=== PATIENT | male | born 1980 | race Caucasian/White ===

== ENCOUNTER → 2016-10-15 | Outpatient (CLI) | payer OTHER ==
--- NOTE | 2016-10-15 16:33 | CT ---
EXAMINATION TYPE: CT sinus w con DATE OF EXAM: 10/15/2016 12:04 PM COMPARISON: NONE HISTORY: Patient having acute sinusitis CT DLP: 650 mGycm CONTRAST: 100 mL of Omnipaque 300 The paranasal sinuses are examined in the axial plane at 2 mm thick sections. Reconstructed images i n the coronal plane were obtained. There is dental amalgam scatter artifact Left maxillary sinus has some mucosal thickening posteriorly. Sinusitis may be present. There is mil d mucosal thickening within the anterior ethmoid air cells, greater on the left than the right. The sphenoid sinuses are clear. The frontal sinuses are clear. The septum is evaluated. There is septal deviation to the left. The ostiomeatal units are patent. 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 IMPRESSIONS: 1. Clinical correlation recommended for mild left maxillary sinusitis. 2. Mucosal thickening within ethmoid air cells anteriorly. 3. Septal deviation.
== END | disposition home or self-care (01) ==
LOC: RADCTMAIN 11:29
PROVIDERS: ATTEND Family Medicine
DX: J34.89 Other specified disorders of nose and nasal sinuses (principal); J34.2 Deviated nasal septum
CPT/HCPCS: 70487; Q9967

== ENCOUNTER → 2018-04-15 | Outpatient (CLI) | payer OTHER ==
[2018-04-15 13:10] LABS: Collection Time,Urine 24 hrs; Total Volume 24 Hour,Urine 1725 mls (800-1800)
[2018-04-15 13:28] LABS: Total Protein 24 Hour,Urine 449 mg/24hr (42.0-225.0)
[2018-04-15 13:29] LABS: Creatinine 24 Hour,Urine 1731.9 mg/24hr (1000.0-2000.0)
== END | disposition home or self-care (01) ==
LOC: LABMAIN 11:43
PROVIDERS: ATTEND Family Medicine
DX: D64.9 Anemia, unspecified (principal); R94.4 Abnormal results of kidney function studies
CPT/HCPCS: 36415; 81050; 82575; 84156

== ENCOUNTER → 2018-05-05 | Outpatient (CLI) | payer OTHER ==
--- NOTE | 2018-05-06 08:35 | US ---
EXAMINATION TYPE: US kidneys/renal and bladder DATE OF EXAM: 05/05/2018 COMPARISON: NONE CLINICAL HISTORY: R94.4Abnormal results of kidney function studies. EXAM MEASUREMENTS: Right Kidney: 11.2 x 4.2 x 5.0 cm Left Kidney: 10.9 x 6.0 x 4.8 cm Right Kidney: No hydronephrosis or masses seen Left Kidney: No hydronephrosis or masses seen Bladder: wnl Bilateral Jets seen: Yes IMPRESSION: 1. Normal renal ultrasound
== END | disposition home or self-care (01) ==
LOC: RADUSWWP 15:48
PROVIDERS: ATTEND Family Medicine
DX: R94.4 Abnormal results of kidney function studies (principal)
CPT/HCPCS: 76770

== ENCOUNTER 2018-07-23 07:19 | Day surgery (SDC) | payer OTHER ==
[2018-07-20 14:53] VITALS: BMI 24.5
[~2018-07-23 07:19] MED LIST: LACTATED RINGERS 1,000 ML IV SCH
[2018-07-23 07:52] VITALS: RESP 16; TEMP 97.6
[2018-07-23] MEDS ORDERED: PROPOFOL 10 MG/ML 20 ML VIAL IV ONE (08:14)
[2018-07-23] MEDS ORDERED: LIDOCAINE 1% INJ 10MG/ML (20 ML MDV) ONE (08:14)
[2018-07-23] MEDS ORDERED: MIDAZOLAM 2 MG/2 ML VIAL ONE (08:14)
[2018-07-23] MEDS ORDERED: fentaNYL (PF) 50 MCG/ML 2 ML AMP ONE (08:14)
--- NOTE | 2018-07-23 08:16 | P.GSHP ---
History of Present Illness H&P Date: 07/23/18 Chief Complaint: Anemia, rectal bleeding This is a 37-year-old male for from [facility]. Patient resents today for EGD and colonoscopy. He's had issues with anemia. Patient states she's had some minor rectal bleeding. Past Medical History Past Medical History: Musculoskeletal Disorder Additional Past Medical History / Comment(s): Anemia History of Any Multi-Drug Resistant Organisms: None Reported Past Surgical History: Back Surgery Additional Past Surgical History / Comment(s): dental work Past Anesthesia/Blood Transfusion Reactions: No Reported Reaction Smoking Status: Current every day smoker - Past Family History Mother Family Medical History: No Reported History Father Family Medical History: Cancer Additional Family Medical History / Comment(s): Lung CA Medications and Allergies Home Medications Medication Instructions Recorded Confirmed Type Baclofen [Lioresal] 10 mg PO TID PRN 07/20/18 07/20/18 History Buprenorphine HCl [Subutex] 8 mg SL DAILY PRN 07/20/18 07/20/18 History Ferrous Sulfate [Feosol] 325 mg PO DAILY 07/20/18 07/20/18 History Finasteride [Proscar] 5 mg PO DAILY 07/20/18 07/20/18 History Indomethacin 25 mg PO TID PRN 07/20/18 07/20/18 History Meloxicam 7.5 mg PO DAILY PRN 07/20/18 07/20/18 History Multivitamins, Thera [Multivitamin 1 tab PO DAILY 07/20/18 07/20/18 History (formulary)] Omeprazole 20 mg PO DAILY 07/20/18 07/20/18 History Pregabalin [Lyrica] 150 mg PO TID 07/20/18 07/20/18 History Tamsulosin [Flomax] 0.4 mg PO DAILY 07/20/18 07/20/18 History Vitamin B Complex 1 each PO DAILY 07/20/18 07/20/18 History Allergies Allergy/AdvReac Type Severity Reaction Status Date / Time No Known Allergies Allergy Verified 07/23/18 07:45 Surgical - Exam Vital Signs Temp Pulse Resp BP Pulse Ox 97.6 F 81 16 135/80 100 07/23/18 07:51 07/23/18 07:51 07/23/18 07:51 07/23/18 07:51 07/23/18 07:51 - General well developed, well nourished, no distress - Eyes PERRL - ENT normal pinna - Neck no masses - Respiratory normal expansion - Cardiovascular Rhythm: regular - Abdomen Abdomen: soft, non tender Assessment and Plan Assessment: Female, GI bleed. We'll perform EGD and colonoscopy.
--- NOTE | 2018-07-23 08:36 | P.OP ---
Date of Procedure: 07/23/18 Preoperative Diagnosis: Anemia GI bleed Postoperative Diagnosis: Duodenitis Antral gastritis Normal colon No evidence of active GI bleed Procedure(s) Performed: She Colonoscopy Anesthesia: MAC Surgeon: Sincere Paulson Pathology: other (Antrum, duodenum) Condition: stable Disposition: PACU Description of Procedure: The patient's placed on the endoscopy table in the lateral position. He received IV sedation. The gastroscope placed oropharynx passed in the esophagus and stomach. Scope was then placed through the pylorus. The first and second portion of the duodenum appeared mildly inflamed a biopsies performed. Scope was then brought back the antrum and this was mildly inflamed and another biopsy performed. The scope was then retroflexed and remainder of the stomach appeared normal. There is no evidence of hiatal hernia. The distal esophagus normal. The proximal esophagus appeared normal. Scope was withdrawn for patient. PROCEDURE: The patient was placed on the endoscopy table in the lateral position. Digital rectal examination was performed which revealed no abnormalities. The prostate was symmetrical without nodules. Flexible colonoscope was then placed in the patient's anus and passed throughout the entire colon. The ileocecal valve was visualized. The cecum, ascending, transverse, descending and sigmoid colon were normal. The rectum was normal as well. There were no masses, polyps or diverticula noted in the entire colon.
[2018-07-23 09:03] VITALS: BP 119/77; PULSE 69
--- NOTE | 2018-07-28 10:52 | CDI ---
Outpatient Documentation Clarification Form Date: 07/28/18 CDS/Sleep Scientist Name: Carla Mancilla Phone: If any questions, call Ronna Jay Review Engineer at [phone] Patient Name: Wang Molina Admit Date: 07/23/18 Discharge Date: 07/23/18 ATTENTION: The [facility] Coding Staff appreciate your assistance in clarifying documentation. Please respond to the clarification below the line at the bottom and electronically sign. The [facility] Coding staff will review the response and follow-up if needed. Please note: Queries are made part of the Legal Health Record. If you have any questions, please contact the Review Engineer. Dear Dr. Paulson, What is the source of the GI bleed? Multiple coding resources, that we are required to follow, state that the physician should identify a source and the gantry rigger may not assume. ICD-9-CM [facility]oding [facility], Second 2006, Page 13: Question: In the 2004 issue of Coding Clinic, it was advised that "the combination codes describing hemorrhage should not be assigned unless the physician identifies a causal relationship." This information superseded previous advice provided in 1991. If, however, a patient presents with GI bleeding where only one possible source is found, can the gantry rigger assume a causal relationship between the GI bleeding and the single finding (ulcer, gastritis, diverticulitis, etc.) or must the physician explicitly state that the GI bleeding is due to the single finding? Answer: The gantry rigger should not assume a causal relationship between gastrointestinal bleeding and a single finding such as a gastric ulcer, gastritis, diverticulitis , etc. The physician must identify the source of the bleeding and link the clinical findings from the colonoscopy or upper endoscopy, since these findings may be unrelated to the bleeding. ICD-9-CM, 2004, Page: 17-18: Question: A patient presents with GI bleeding and undergoes both an EGD with biopsy and colonoscopy. Results reveal multiple findings including gastritis, duodenitis, esophagitis, diverticulosis (of colon), and colon polyp. The physician does not link the GI bleeding with these conditions nor does the physician state that the GI bleeding is not due to these conditions. What is the correct code assignment for these conditions? Answer: Query the physician to determine whether the GI bleeding was caused by any of the endoscopic findings (e.g., gastritis, duodentitis, esophagitis, diverticulosis, and/or polyp). Assign code 578.9, Hemorrhage of gastrointestinal tract, unspecified, as the principal diagnosis, if the physician does not establish a causal relationship between the gastrointestinal bleeding and the multiple findings. Codes 535.50, Unspecified gastritis and gastroduodenitis, without hemorrhage, 535.60, Duodenitis, without hemorrhage, 530.10, Esophagitis, unspecified, 562.10, Diverticulosis of colon (without mention of hemorrhage), and 211.3, Benign neoplasm of other parts of digestive system, Colon, should be assigned as additional diagnoses. The combination codes describing hemorrhage should not be assigned unless the physician identifies a causal relationship. If the documentation provides more specific information and the bleeding is linked to a specific condition, assign the appropriate combination code with bleeding. Assign code 45.16, Esophagogastroduodenoscopy [EGD] with closed biopsy, and code 45.23, Colonoscopy , for the procedures performed. This current information supersedes advice previously published in [facility], Second Quarter 1991, pages 8-9. Thank you for your kind consideration. I'm unable to determine the source of GI bleed. MTDD
== END 2018-07-23 09:20 | disposition home or self-care (01) ==
LOC: ORWHC2ENDO 07:19
PROVIDERS: ATTEND Surgery
DX: K92.2 Gastrointestinal hemorrhage, unspecified (principal); K29.80 Duodenitis without bleeding; K29.50 Unspecified chronic gastritis without bleeding; D50.9 Iron deficiency anemia, unspecified; K21.9 Gastro-esophageal reflux disease without esophagitis; N40.0 Benign prostatic hyperplasia without lower urinary tract symptoms; F17.200 Nicotine dependence, unspecified, uncomplicated; Z79.899 Other long term (current) drug therapy
CPT/HCPCS: 88305; 45378; 43239; J2250; J2001; J3010; J2704

== ENCOUNTER → 2018-08-03 | Outpatient (CLI) | payer OTHER ==
[2018-08-03 14:58] LABS: Basophils # (A) 0.1 k/uL (0-0.2); Basophils % (A) 2 %; Eosinophils # (A) 0.3 k/uL (0-0.7); Eosinophils % (A) 4 %; HCT 39.5 % (39.0-53.0); Lymphocytes # (A) 2.3 k/uL (1.0-4.8); Lymphocytes % (A) 36 %; MCH 31.1 pg (25.0-35.0); MCHC 32.9 g/dL (31.0-37.0); MCV 94.5 fL (80.0-100.0); Mean Platelet Volume 8.4; Monocytes # (A) 0.3 k/uL (0-1.0); Monocytes % (A) 5 %; Neutrophils # (A) 3.3 k/uL (1.3-7.7); Neutrophils % (A) 51 %; Platelet Count 220 k/uL (150-450); RBC 4.18 m/uL (4.30-5.90); WBC 6.5 k/uL (3.8-10.6)
[2018-08-03 15:10] LABS: ALT 22 U/L (21-72); AST 19 U/L (17-59); Albumin 4.2 g/dL (3.5-5.0); Alkaline Phosphatase 67 U/L (38-126); Anion Gap 8 mmol/L; Blood Urea Nitrogen 22 mg/dL (9-20); Calcium 9.9 mg/dL (8.4-10.2); Carbon Dioxide 25 mmol/L (22-30); Chloride 109 mmol/L (98-107); Glucose 113 mg/dL (74-99); Phosphorus 4.2 mg/dL (2.5-4.5); Potassium 4.3 mmol/L (3.5-5.1); Sodium 142 mmol/L (137-145); Total Bilirubin 0.5 mg/dL (0.2-1.3); Total Protein 6.9 g/dL (6.3-8.2)
[2018-08-03 18:20] LABS: Iron Saturation 24.66 (15.00-50.00)
[2018-08-03 18:29] LABS: Vitamin D 25 Hydroxy 31.8 ng/mL (30.0-100.0)
[2018-08-03 18:41] LABS: Parathyroid Hormone Intact 16.2 pg/mL (14.0-72.0)
== END ==
LOC: LABWHC1 13:37
PROVIDERS: ATTEND Family Medicine
DX: D64.9 Anemia, unspecified (principal); R94.4 Abnormal results of kidney function studies; Z79.899 Other long term (current) drug therapy
CPT/HCPCS: 36415; 80053; 82306; 82728; 83540; 83550; 83970; 84100; 85025

== ENCOUNTER → 2018-10-02 | Outpatient (CLI) | payer OTHER ==
--- NOTE | 2018-10-02 14:56 | CT ---
EXAMINATION TYPE: CT urogram wo/w con DATE OF EXAM: 10/02/2018 COMPARISON: None HISTORY: Benign essential microscopic hematuria CT DLP: 1320.3 mGycm CONTRAST: Performed and without and with IV Contrast, patient injected with 100 ml mL of Isovue 370. CT Urography was performed with unenhanced followed by enhanced images of the kidneys, ureters and ur inary bladder. Delayed images were obtained. 3d reconstruction was perfromed at a separate work sta tion. FINDINGS: KIDNEYS/BLADDER: No hydronephrosis. 4.5 mm calculus lower pole right kidney. Additional 2 mm calculu s lower pole right kidney. No calculi left kidney. No distinct renal mass. 4 opacification distal ure ters bilaterally. Urinary bladder grossly unremarkable. LUNG BASES-: No visible nodule. No infiltrate. LIVER/GB: No calcified gallstones. No space occupying hepatic lesion. Biliary tree is of normal ca liber. PANCREAS: No inflammation. No distinct mass. SPLEEN: No splenic enlargement. No lesion seen. ADRENALS: No nodule. No thickening. BOWEL: Normal appendix. Normal bowel caliber. No inflammation. GENITAL ORGANS: No gross abnormality. LYMPH NODES: No greater than 1cm abdominal or pelvic lymph nodes are appreciated. AORTA: No significant abnormality. OSSEOUS STRUCTURES: No significant abnormality is seen. OTHER: No significant additional abnormality is seen. IMPRESSION: 1. Nonobstructing right-sided nephrolithiasis.
== END ==
LOC: RADCTMAIN 13:40
PROVIDERS: ATTEND Urology
DX: N20.0 Calculus of kidney (principal)
CPT/HCPCS: 74178; 74400; Q9967

== ENCOUNTER 2018-10-04 23:59 | Inpatient (IN) | payer OTHER ==
[2018-10-05 01:06] LABS: ALT 22 U/L (21-72); AST 25 U/L (17-59); Albumin 3.1 g/dL (3.5-5.0); Alkaline Phosphatase 38 U/L (38-126); Anion Gap 9 mmol/L; Blood Urea Nitrogen 49 mg/dL (9-20); Calcium 8.5 mg/dL (8.4-10.2); Carbon Dioxide 18 mmol/L (22-30); Chloride 112 mmol/L (98-107); Glucose 243 mg/dL (74-99); Potassium 4.2 mmol/L (3.5-5.1); Sodium 139 mmol/L (137-145); Total Bilirubin 0.2 mg/dL (0.2-1.3); Total Protein 5.2 g/dL (6.3-8.2)
[2018-10-05 01:08] LABS: Basophils # (A) 0.1 k/uL (0-0.2); Basophils % (A) 1 %; Eosinophils # (A) 0.1 k/uL (0-0.7); Eosinophils % (A) 0 %; HCT 22.2 % (39.0-53.0); Lymphocytes # (A) 1.8 k/uL (1.0-4.8); Lymphocytes % (A) 16 %; MCH 32.2 pg (25.0-35.0); MCHC 33.3 g/dL (31.0-37.0); MCV 96.8 fL (80.0-100.0); Mean Platelet Volume 9.6; Monocytes # (A) 0.4 k/uL (0-1.0); Monocytes % (A) 4 %; Neutrophils # (A) 8.7 k/uL (1.3-7.7); Neutrophils % (A) 78 %; Platelet Count 239 k/uL (150-450); WBC 11.2 k/uL (3.8-10.6)
[2018-10-05 01:17] LABS: Creatine Kinase 38 U/L (55-170)
[2018-10-05 01:18] LABS: HGB 7.4 gm/dL (13.0-17.5)
[2018-10-05 01:30] LABS: Creatine Kinase MB 0.5 ng/mL (0.0-2.4); Troponin I <0.012 ng/mL (0.000-0.034)
[2018-10-05] MEDS ORDERED: PANTOPRAZOLE 40 MG/10 ML VIAL IVP STA (01:35)
[2018-10-05] MEDS ORDERED: ACETAMINOPHEN SUPPOSITORY 650 MG SUPP RECTAL PRN (01:44)
[2018-10-05] MEDS ORDERED: ACETAMINOPHEN TAB 325 MG TAB PO PRN (01:44)
[2018-10-05] MEDS ORDERED: NALOXONE 0.4 MG/ML 1 ML VIAL IV PRN (01:44)
[2018-10-05] MEDS ORDERED: SODIUM CHLORIDE 0.9% 1,000 ML IV STA (01:47)
[2018-10-05] MEDS ORDERED: BACLOFEN 10 MG TAB PO PRN (01:51)
--- NOTE | 2018-10-05 02:01 | ED ---
GI Bleed HPI - General Chief complaint: GI Bleed Stated complaint: Vomiting Blood Time Seen by Provider: 10/05/18 00:08 Source: patient, EMS Mode of arrival: EMS Limitations: no limitations - History of Present Illness Initial comments: This patient is a 37-year-old man who presents to be evaluated for GI bleeding. The patient states that in early afternoon he had an episode of vomiting with some bright red blood. Subsequent to that the vomiting is stop but he has had 5 -6 bowel movements with dark red blood. He is not having abdominal pain. He is having lightheadedness when he stands, feeling like he will pass out. At rest he is not having chest pain or palpitations, diaphoresis, dizziness, or syncope. The patient did have episode of GI bleeding in July, and had upper endoscopy with Dr. Paulson showed duodenitis and anterior gastritis. MD complaint: gross hematemesis, melena -: hour(s) Radiation: none Quality: painless Consistency: constant Improves with: none Worsens with: none Context: history of GI bleed Associated Symptoms: denies other symptoms Treatments Prior to Arrival: none - Related Data Home Medications Medication Instructions Recorded Confirmed Buprenorphine HCl [Subutex] 8 mg SL DAILY PRN 07/20/18 10/05/18 Ferrous Sulfate [Feosol] 325 mg PO DAILY 07/20/18 10/05/18 Finasteride [Proscar] 5 mg PO DAILY 07/20/18 10/05/18 Indomethacin 25 mg PO TID PRN 07/20/18 10/05/18 Meloxicam 7.5 mg PO DAILY PRN 07/20/18 10/05/18 Multivitamins, Thera [Multivitamin 1 tab PO DAILY 07/20/18 10/05/18 (formulary)] Tamsulosin [Flomax] 0.4 mg PO DAILY 07/20/18 10/05/18 Vitamin B Complex 1 each PO DAILY 07/20/18 10/05/18 Albuterol Inhaler [Ventolin Hfa 2 puff INHALATION RT-Q4H 10/05/18 10/05/18 Inhaler] Baclofen [Lioresal] 20 mg PO TID 10/05/18 10/05/18 Cetirizine HCl [Zyrtec] 10 mg PO DAILY 10/05/18 10/05/18 Lisinopril-Hctz 20-25 mg 1 tab PO DAILY 10/05/18 10/05/18 [Zestoretic 20-25] Pregabalin [Lyrica] 200 mg PO TID 10/05/18 10/05/18 buPROPion XL [Wellbutrin XL] 150 mg PO DAILY 10/05/18 10/05/18 Previous Rx's Medication Instructions Recorded Omeprazole 40 mg PO DAILY #60 capsule. 07/23/18 Allergies Allergy/AdvReac Type Severity Reaction Status Date / Time No Known Allergies Allergy Verified 10/05/18 07:59 Review of Systems ROS Statement: Those systems with pertinent positive or pertinent negative responses have been documented in the HPI. ROS Other: All systems not noted in ROS Statement are negative. Constitutional: Reports: chills. Denies: fever, weakness ENT: Denies: throat pain Respiratory: Denies: cough, dyspnea Cardiovascular: Denies: chest pain, palpitations, orthopnea, edema, syncope Gastrointestinal: Reports: nausea, vomiting, hematemesis, melena. Denies: abdominal pain, diarrhea, constipation Genitourinary: Denies: dysuria, hematuria Musculoskeletal: Reports: back pain (Chronic) Skin: Denies: rash Neurological: Denies: headache, weakness, numbness Hematological/Lymphatic: Denies: easy bleeding Past Medical History Past Medical History: Musculoskeletal Disorder Additional Past Medical History / Comment(s): Anemia History of Any Multi-Drug Resistant Organisms: None Reported Past Surgical History: Back Surgery Additional Past Surgical History / Comment(s): dental work Past Anesthesia/Blood Transfusion Reactions: No Reported Reaction Past Psychological History: No Psychological Hx Reported Smoking Status: Current every day smoker Past Alcohol Use History: Rare Past Drug Use History: None Reported - Past Family History Mother Family Medical History: No Reported History Father Family Medical History: Cancer Additional Family Medical History / Comment(s): Lung CA General Exam Limitations: no limitations General appearance: alert, in no apparent distress Head exam: Present: atraumatic, normocephalic Eye exam: Present: PERRL, EOMI, other (Pallor). Absent: scleral icterus, conjunctival injection ENT exam: Present: normal oropharynx, mucous membranes moist, other (Pallor of the mucosal membranes) Neck exam: Present: normal inspection Respiratory exam: Present: normal lung sounds bilaterally. Absent: respiratory distress, wheezes, rales, rhonchi, stridor Cardiovascular Exam: Present: normal rhythm, tachycardia, normal heart sounds. Absent: systolic murmur, diastolic murmur, rubs, gallop GI/Abdominal exam: Present: soft, normal bowel sounds. Absent: distended, tenderness, guarding, rebound, rigid, mass, pulsatile mass, hernia Extremities exam: Present: normal inspection, normal capillary refill. Absent: pedal edema, calf tenderness Back exam: Present: normal inspection. Absent: CVA tenderness (R), CVA tenderness (L) Neurological exam: Present: alert Skin exam: Present: warm, dry, intact, pallor. Absent: rash Course Vital Signs 10/05/18 10/05/18 10/05/18 00:01 00:30 01:00 Temperature 97.6 F Pulse Rate 114 H 106 H 97 Respiratory 18 17 21 Rate Blood Pressure 91/61 92/55 100/64 O2 Sat by Pulse 93 L 100 100 Oximetry 10/05/18 10/05/18 10/05/18 01:30 02:00 02:30 Temperature Pulse Rate 90 94 87 Respiratory 16 16 17 Rate Blood Pressure 106/71 106/66 105/70 O2 Sat by Pulse 100 100 100 Oximetry 10/05/18 10/05/18 10/05/18 03:00 03:30 03:59 Temperature 97.8 F Pulse Rate 89 92 92 Respiratory 18 19 18 Rate Blood Pressure 111/71 88/65 101/67 O2 Sat by Pulse 100 100 Oximetry 10/05/18 10/05/18 10/05/18 04:00 04:13 04:30 Temperature 98.0 F Pulse Rate 98 92 90 Respiratory 19 18 20 Rate Blood Pressure 103/68 106/75 111/72 O2 Sat by Pulse 100 100 Oximetry 10/05/18 10/05/18 10/05/18 04:43 05:00 05:28 Temperature 98.3 F 98.5 F Pulse Rate 96 88 86 Respiratory 19 17 19 Rate Blood Pressure 109/69 109/69 116/93 O2 Sat by Pulse 100 100 100 Oximetry 10/05/18 10/05/18 10/05/18 05:30 06:00 06:12 Temperature 99.1 F Pulse Rate 86 85 86 Respiratory 18 19 17 Rate Blood Pressure 116/93 111/68 O2 Sat by Pulse 100 98 Oximetry 10/05/18 10/05/18 06:14 08:00 Temperature 98.4 F Pulse Rate 87 Respiratory 18 10 L Rate Blood Pressure 108/66 O2 Sat by Pulse 98 Oximetry Medical Decision Making - Medical Decision Making Patient is a 37-year-old man presenting with acute gastrointestinal bleeding. The patient is admitted here and started with one unit packed red cells. I discussed his case with admitting physician, with Dr. Mi, and with Dr. Thompson , and there treatment recommendations are incorporated. Patient hemodynamically stable at admission - Lab Data Result diagrams: 10/05/18 06:50 10/05/18 00:10 Lab Results 10/05/18 10/05/18 10/05/18 Range/Units 00:10 00:10 00:10 WBC 11.2 H (3.8-10.6) k/uL RBC 2.30 L (4.30-5.90) m/uL Hgb 7.4 L D (13.0-17.5) gm/dL Hct 22.2 L (39.0-53.0) % MCV 96.8 (80.0-100.0) fL MCH 32.2 (25.0-35.0) pg MCHC 33.3 (31.0-37.0) g/dL RDW 14.0 (11.5-15.5) % Plt Count 239 (150-450) k/uL Neutrophils % 78 % Lymphocytes % 16 % Monocytes % 4 % Eosinophils % 0 % Basophils % 1 % Neutrophils # 8.7 H (1.3-7.7) k/uL Lymphocytes # 1.8 (1.0-4.8) k/uL Monocytes # 0.4 (0-1.0) k/uL Eosinophils # 0.1 (0-0.7) k/uL Basophils # 0.1 (0-0.2) k/uL APTT (22.0-30.0) sec Sodium 139 (137-145) mmol/L Potassium 4.2 (3.5-5.1) mmol/L Chloride 112 H (98-107) mmol/L Carbon Dioxide 18 L (22-30) mmol/L Anion Gap 9 mmol/L BUN 49 H (9-20) mg/dL Creatinine 1.18 (0.66-1.25) mg/dL Est GFR (CKD-EPI)AfAm >90 (>60 ml/min/1.73 sqM) Est GFR (CKD-EPI)NonAf 78 (>60 ml/min/1.73 sqM) Glucose 243 H (74-99) mg/dL Calcium 8.5 (8.4-10.2) mg/dL Total Bilirubin 0.2 (0.2-1.3) mg/dL AST 25 (17-59) U/L ALT 22 (21-72) U/L Alkaline Phosphatase 38 (38-126) U/L Total Creatine Kinase 38 L (55-170) U/L CK-MB (CK-2) 0.5 (0.0-2.4) ng/mL CK-MB (CK-2) Rel Index 1.3 Troponin I <0.012 (0.000-0.034) ng/mL Total Protein 5.2 L (6.3-8.2) g/dL Albumin 3.1 L (3.5-5.0) g/dL Blood Type Blood Type Recheck Antibody Screen Crossmatch Spec Expiration Date 10/05/18 10/05/18 Range/Units 00:10 00:10 WBC (3.8-10.6) k/uL RBC (4.30-5.90) m/uL Hgb (13.0-17.5) gm/dL Hct (39.0-53.0) % MCV (80.0-100.0) fL MCH (25.0-35.0) pg MCHC (31.0-37.0) g/dL RDW (11.5-15.5) % Plt Count (150-450) k/uL Neutrophils % % Lymphocytes % % Monocytes % % Eosinophils % % Basophils % % Neutrophils # (1.3-7.7) k/uL Lymphocytes # (1.0-4.8) k/uL Monocytes # (0-1.0) k/uL Eosinophils # (0-0.7) k/uL Basophils # (0-0.2) k/uL APTT 20.0 L (22.0-30.0) sec Sodium (137-145) mmol/L Potassium (3.5-5.1) mmol/L Chloride (98-107) mmol/L Carbon Dioxide (22-30) mmol/L Anion Gap mmol/L BUN (9-20) mg/dL Creatinine (0.66-1.25) mg/dL Est GFR (CKD-EPI)AfAm (>60 ml/min/1.73 sqM) Est GFR (CKD-EPI)NonAf (>60 ml/min/1.73 sqM) Glucose (74-99) mg/dL Calcium (8.4-10.2) mg/dL Total Bilirubin (0.2-1.3) mg/dL AST (17-59) U/L ALT (21-72) U/L Alkaline Phosphatase (38-126) U/L Total Creatine Kinase (55-170) U/L CK-MB (CK-2) (0.0-2.4) ng/mL CK-MB (CK-2) Rel Index Troponin I (0.000-0.034) ng/mL Total Protein (6.3-8.2) g/dL Albumin (3.5-5.0) g/dL Blood Type A Negative Blood Type Recheck CABO Indicated Antibody Screen NEGATIVE Crossmatch See Detail Spec Expiration Date 10/08/20182309 - EKG Data -: EKG Interpreted by Me EKG shows normal: sinus rhythm, axis (Normal), intervals (Normal), QRS complexes (Normal), ST-T waves (Normal) Rate: tachycardia (Rate approximately 120 bpm) Critical Care Time Critical Care Time: Yes (40 minutes) Disposition Clinical Impression: Melena, Gastrointestinal hemorrhage due to nonsteroidal antiinflammatory drug Disposition: ADMITTED IP TO THIS [facility] Condition: Fair Is patient prescribed a controlled substance at d/c from ED?: No
[2018-10-05] MEDS: SODIUM CHLORIDE 0.9% 1,000 ML IV SCH ×3 (02:38→21:52)
[2018-10-05 07:08] LABS: Basophils % (A) 1 %; Eosinophils % (A) 1 %; HCT 20.3 % (39.0-53.0); Lymphocytes # (A) 1.8 k/uL (1.0-4.8); Lymphocytes % (A) 24 %; MCH 31.6 pg (25.0-35.0); MCHC 33.5 g/dL (31.0-37.0); MCV 94.2 fL (80.0-100.0); Mean Platelet Volume 8.7; Monocytes # (A) 0.3 k/uL (0-1.0); Monocytes % (A) 4 %; Neutrophils % (A) 69 %; Platelet Count 179 k/uL (150-450); RBC 2.16 m/uL (4.30-5.90); RDW 14.7 % (11.5-15.5); WBC 7.2 k/uL (3.8-10.6)
[2018-10-05 07:15] LABS: HGB 6.8 gm/dL (13.0-17.5)
[2018-10-05 08:24] LABS: Glucose,Whole Blood 130 mg/dL (75-99)
[2018-10-05] MEDS: TAMSULOSIN 0.4 MG CAP.ER.24H PO SCH (08:37)
[2018-10-05] MEDS: FINASTERIDE 5 MG TAB PO SCH (08:37)
[2018-10-05] MEDS: FERROUS SULFATE 325 MG TAB PO SCH (08:38)
[2018-10-05] MEDS: PREGABALIN 75 MG CAP PO SCH ×3 (08:40→21:50)
[2018-10-05] MEDS ORDERED: PANTOPRAZOLE 40 MG/10 ML VIAL IV SCH (09:00)
--- NOTE | 2018-10-05 10:00 | P.HPIM ---
<Flori Vickers A - Last Filed: 10/05/18 10:00> History of Present Illness H&P Date: 10/05/18 Chief Complaint: bloody stools 37-year-old male with a past medical history significant for chronic back pain, who presented to the emergency room with a chief complaint of dark blood per rectum. Patient states he had 5-6 episodes at home of dark red blood stools in addition to an episode of bright red vomiting. The patient has been taking indomethacin, Mobic, and Motrin due to his chronic back pain. He states he saw Dr. Mills last week and was taken off of his Mobic and indomethacin. He reports he is still been taking Motrin. The patient underwent EGD and colonoscopy in July of this year by Dr. Paulson due to anemiawhich revealed duodenitis, antral gastritis, normal colon, and no evidence of an active GI bleed. The patient states at that time he only had blood when he wiped and thought it may be due to hemorrhoids. Laboratory data upon admission revealed white count 11.2. Hemoglobin 7.4. Repeat hemoglobin today is 6.8. Platelet count 239. Sodium 139. Potassium 4.2. BUN 49. Creatinine 1.18. Glucose 243. The patient has received 1 unit of RBCs and a second unit is transfusing. The patient was admitted to the hospital under the care of Dr. Canales. Consultations were placed to pulmonary for ICU management and general surgery. REVIEW OF SYSTEMS: Those systems with pertinent positive or pertinent negative responses have been documented in the HPI PHYSICAL EXAM: GENERAL: This is a 37-year-old male in no apparent distress at the time of examination. Pleasant and cooperative. HEENT: Head is atraumatic, normocephalic. Pupils are equal, round, and reactive to light. Sclerae anicteric. Conjunctivae are clear. Mucus membranes of the mouth are moist. Neck is supple. RESPIRATORY: Clear to auscultation. No wheezes, rales, or rhonchi. No use of accessory muscles. Patient maintaining oxygen saturation greater than 92%. No chest wall tenderness is noted on palpation or with deep breathing. CARDIOVASCULAR: Regular rate and rhythm. S1 and S2 noted. No systolic or diastolic murmur auscultated. No JVD noted. No S3 or S4 noted. GASTROINTESTINAL: No distention noted. Abdomen soft and round. Normal active bowel sounds auscultated x 4 quadrants. No pain or tenderness noted upon palpation. INTEGUMENTARY: Pallor. No cyanosis. No jaundice. No rashes noted. No cellulitis noted. EXTREMITIES: 2+ peripheral pulses. No evidence of peripheral edema. No calf tenderness noted. NEUROLOGIC: Cranial nerves II-XII intact. PSYCHIATRIC: Awake, alert, and oriented X 3. Appropriate affect. Intact judgement and insight. ASSESSMENT: Hematemesis and melena due to GI bleeding secondary to NSAIDS History of EGD and colonoscopy, July 2018, revealing duodenitis and antral gastritis Chronic back pain, with history of back surgery History of prescription pain pill abuse, patient reports taking more than prescribed Nicotine dependence PLAN: Continue ICU management per Dr. Hiwot Richards surgery on consult. Appreciate recommendations and input continue IV fluids Protonix IV twice a day clear liquid diet started per surgery Patient currently receiving blood transfusion. Monitor hemoglobin Home meds as appropriate Monitor labs GI prophylaxis: Protonix 40 mg IV twice a day DVT prophylaxis: on hold due to GI bleeding Monitor vital signs and address as appropriate Discharge planning: Patient to return home when stable Further recommendations pending patient's course Nurse practitioner note has been reviewed by physician. Signing provider agrees with the documented findings, assessment, and plan of care. Past Medical History Past Medical History: Musculoskeletal Disorder Additional Past Medical History / Comment(s): Anemia History of Any Multi-Drug Resistant Organisms: None Reported Past Surgical History: Back Surgery Additional Past Surgical History / Comment(s): dental work Past Anesthesia/Blood Transfusion Reactions: No Reported Reaction Past Psychological History: No Psychological Hx Reported Smoking Status: Current every day smoker Past Alcohol Use History: Rare Past Drug Use History: None Reported - Past Family History Mother Family Medical History: No Reported History Additional Family Medical History / Comment(s): Mother is healthy Father Family Medical History: Cancer Additional Family Medical History / Comment(s): Lung CA Medications and Allergies Home Medications Medication Instructions Recorded Confirmed Type Buprenorphine HCl [Subutex] 8 mg SL DAILY PRN 07/20/18 10/05/18 History Ferrous Sulfate [Feosol] 325 mg PO DAILY 07/20/18 10/05/18 History Finasteride [Proscar] 5 mg PO DAILY 07/20/18 10/05/18 History Indomethacin 25 mg PO TID PRN 07/20/18 10/05/18 History Meloxicam 7.5 mg PO DAILY PRN 07/20/18 10/05/18 History Multivitamins, Thera [Multivitamin 1 tab PO DAILY 07/20/18 10/05/18 History (formulary)] Tamsulosin [Flomax] 0.4 mg PO DAILY 07/20/18 10/05/18 History Vitamin B Complex 1 each PO DAILY 07/20/18 10/05/18 History Omeprazole 40 mg PO DAILY #60 capsule.dr 07/23/18 10/05/18 Rx Albuterol Inhaler [Ventolin Hfa 2 puff INHALATION RT-Q4H 10/05/18 10/05/18 History Inhaler] Baclofen [Lioresal] 20 mg PO TID 10/05/18 10/05/18 History Cetirizine HCl [Zyrtec] 10 mg PO DAILY 10/05/18 10/05/18 History Lisinopril-Hctz 20-25 mg 1 tab PO DAILY 10/05/18 10/05/18 History [Zestoretic 20-25] Pregabalin [Lyrica] 200 mg PO TID 10/05/18 10/05/18 History buPROPion XL [Wellbutrin XL] 150 mg PO DAILY 10/05/18 10/05/18 History Allergies Allergy/AdvReac Type Severity Reaction Status Date / Time No Known Allergies Allergy Verified 10/05/18 07:59 Physical Exam Vitals: Vital Signs Temp Pulse Resp BP Pulse Ox 10/05/18 09:30 98.1 F 94 20 115/72 10/05/18 09:03 98.1 F 78 17 111/68 10/05/18 08:53 99.1 F 86 17 111/68 98 10/05/18 08:00 98.4 F 87 10 L 108/66 98 10/05/18 06:14 18 10/05/18 06:12 99.1 F 86 17 111/68 98 10/05/18 06:00 85 19 10/05/18 05:30 86 18 116/93 100 10/05/18 05:28 98.5 F 86 19 116/93 100 10/05/18 05:00 88 17 109/69 100 10/05/18 04:43 98.3 F 96 19 109/69 100 12/24/18 04:30 90 20 111/72 100 10/05/18 04:13 98.0 F 92 18 106/75 10/05/18 04:00 98 19 103/68 100 10/05/18 03:59 97.8 F 92 18 101/67 10/05/18 03:30 92 19 88/65 100 10/05/18 03:00 89 18 111/71 100 10/05/18 02:30 87 17 105/70 100 10/05/18 02:00 94 16 106/66 100 10/05/18 01:30 90 16 106/71 100 10/05/18 01:00 97 21 100/64 100 10/05/18 00:30 106 H 17 92/55 100 10/05/18 00:01 97.6 F 114 H 18 91/61 93 L Intake and Output 10/04/18 10/05/18 10/05/18 22:59 06:59 14:59 Intake Total 310 200 Balance 310 200 Intake: Intake, IV Titration 200 Amount Sodium Chloride 0.9% 1, 200 000 ml @ 100 mls/hr IV . Q10H [facility] Rx#:[id number] Blood Product 310 0 Rc As-3 Unit 0 [id number] Rc Pheresis As-3 Unit 310 [id number] Other: Weight 83.915 kg Results CBC & Chem 7: 10/05/18 06:50 10/05/18 00:10 Labs: Abnormal Lab Results - Last 24 Hours (Table) 10/05/18 10/05/18 10/05/18 Range/Units 00:10 00:10 00:10 WBC 11.2 H (3.8-10.6) k/uL RBC 2.30 L (4.30-5.90) m/uL Hgb 7.4 L D (13.0-17.5) gm/dL Hct 22.2 L (39.0-53.0) % Neutrophils # 8.7 H (1.3-7.7) k/uL APTT (22.0-30.0) sec Chloride 112 H (98-107) mmol/L Carbon Dioxide 18 L (22-30) mmol/L BUN 49 H (9-20) mg/dL Glucose 243 H (74-99) mg/dL POC Glucose (mg/dL) (75-99) mg/dL Total Creatine Kinase 38 L (55-170) U/L Total Protein 5.2 L (6.3-8.2) g/dL Albumin 3.1 L (3.5-5.0) g/dL Crossmatch 10/05/18 10/05/18 10/05/18 Range/Units 00:10 00:10 06:50 WBC (3.8-10.6) k/uL RBC 2.16 L (4.30-5.90) m/uL Hgb 6.8 L* (13.0-17.5) gm/dL Hct 20.3 L (39.0-53.0) % Neutrophils # (1.3-7.7) k/uL APTT 20.0 L (22.0-30.0) sec Chloride (98-107) mmol/L Carbon Dioxide (22-30) mmol/L BUN (9-20) mg/dL Glucose (74-99) mg/dL POC Glucose (mg/dL) (75-99) mg/dL Total Creatine Kinase (55-170) U/L Total Protein (6.3-8.2) g/dL Albumin (3.5-5.0) g/dL Crossmatch See Detail 10/05/18 Range/Units 08:22 WBC (3.8-10.6) k/uL RBC (4.30-5.90) m/uL Hgb (13.0-17.5) gm/dL Hct (39.0-53.0) % Neutrophils # (1.3-7.7) k/uL APTT (22.0-30.0) sec Chloride (98-107) mmol/L Carbon Dioxide (22-30) mmol/L BUN (9-20) mg/dL Glucose (74-99) mg/dL POC Glucose (mg/dL) 130 H (75-99) mg/dL Total Creatine Kinase (55-170) U/L Total Protein (6.3-8.2) g/dL Albumin (3.5-5.0) g/dL Crossmatch Thrombosis Risk Factor Assmnt - Choose All That Apply Any of the Below Risk Factors Present?: No Other Risk Factors: No Other congenital or acquired thrombophilia - If yes, enter type in comment: No Thrombosis Risk Factor Assessment Level: Very Low Risk <Valerio Canales Jr - Last Filed: 10/06/18 11:18> Physical Exam Osteopathic Statement: *. No significant issues noted on an osteopathic structural exam other than those noted in the History and Physical/Consult. Vitals: Vital Signs Temp Pulse Resp BP Pulse Ox 10/06/18 11:00 85 18 103/66 98 10/06/18 10:00 89 17 118/70 97 10/06/18 09:00 80 16 95/56 96 10/06/18 08:30 98.3 F 84 18 109/65 99 10/06/18 08:04 90 10/06/18 08:00 98.2 F 86 18 116/67 100 10/06/18 07:55 84 10/06/18 07:30 98.2 F 107 H 18 113/72 100 10/06/18 07:00 98.5 F 79 9 L 99/60 100 10/06/18 06:50 98.1 F 80 16 99/60 10/06/18 06:06 98.1 F 12 98 10/06/18 06:00 69 12 101/58 96 10/06/18 05:00 77 16 101/60 96 10/06/18 04:00 98.2 F 78 13 92/57 95 10/06/18 03:00 80 12 107/58 96 10/06/18 02:00 73 18 104/60 96 10/06/18 01:00 79 13 99/63 98 10/06/18 00:00 98.4 F 87 12 111/62 99 10/05/18 23:00 84 15 117/74 97 10/05/18 22:00 109 H 13 117/74 99 10/05/18 21:00 87 8 L 88/67 100 10/05/18 20:00 98.4 F 90 17 102/63 99 10/05/18 19:12 84 10/05/18 19:00 85 16 96/61 98 10/05/18 18:59 84 10/05/18 18:26 98.3 F 78 16 96/61 97 10/05/18 18:00 103 H 17 105/64 100 10/05/18 17:00 92 14 106/67 96 10/05/18 16:31 98.3 F 90 16 106/67 10/05/18 16:01 98.0 F 92 20 107/61 10/05/18 16:00 98.0 F 93 18 112/63 95 10/05/18 15:59 17 10/05/18 15:51 98.0 F 93 17 112/63 10/05/18 15:21 96 10/05/18 15:09 90 10/05/18 15:00 89 16 102/69 100 10/05/18 14:00 90 13 116/72 98 10/05/18 13:00 90 17 125/73 97 10/05/18 12:28 98.7 F 98 20 125/73 10/05/18 12:03 88 10/05/18 12:00 82 17 114/65 99 10/05/18 11:30 98.3 F 90 20 95 Intake and Output 10/05/18 10/06/18 10/06/18 22:59 06:59 14:59 Intake Total 2070 1690 610 Output Total 1750 2000 700 Balance 320 -310 -90 Intake: IV 300 Sodium Chloride 0.9% 1, 300 000 ml @ 100 mls/hr IV . Q10H [facility] Rx#:[id number] Intake, IV Titration 800 900 Amount Sodium Chloride 0.9% 1, 800 900 000 ml @ 100 mls/hr IV . Q10H [facility] Rx#:[id number] Oral 960 480 Blood Product 310 310 310 Rc As-1 Unit 0 310 [id number] Rc Pheresis As-3 Unit 310 [id number] Output: Urine 1750 2000 700 Other: Voiding Method Bedside Commode Urinal Weight 83.915 kg 85.6 kg 85.6 kg Results CBC & Chem 7: 10/06/18 10:06 10/05/18 00:10 Labs: Abnormal Lab Results - Last 24 Hours (Table) 10/05/18 10/05/18 10/05/18 Range/Units 00:10 13:30 20:02 RBC 2.18 L 2.56 L (4.30-5.90) m/uL Hgb 7.1 L 8.6 L D (13.0-17.5) gm/dL Hct 21.0 L 24.1 L (39.0-53.0) % Plt Count 146 L (150-450) k/uL Crossmatch See Detail 10/06/18 10/06/18 Range/Units 05:20 10:06 RBC 2.12 L 2.52 L (4.30-5.90) m/uL Hgb 6.7 L* D 8.2 L D (13.0-17.5) gm/dL Hct 20.0 L 23.4 L (39.0-53.0) % Plt Count 138 L (150-450) k/uL Crossmatch
--- NOTE | 2018-10-05 10:06 | P.GSCN ---
History of Present Illness Consult date: 10/05/18 Reason for Consult: Upper GI bleed History of present illness: 37-year-old male presents to the ER last night with episodes of hematemesis and dark bloody stools. Patient was found to have a low hemoglobin of 7.4. He was given one unit of blood. After transfusion hemoglobin 6.8. Since he arrived no further hematemesis or lower GI bleed episodes. No abdominal pain. Patient was hospitalized and evaluated for anemia in July. He had a upper endoscopy showing only duodenitis. No ulcers were seen. The patient does take NSAIDs chronically. He says he stopped taking his NSAIDs about a week ago. Patient felt lightheaded but never had a syncopal episode. Feels well currently. Review of Systems The patient denies any acute changes in vision or hearing, no dysphagia or odynophagia, no chest pain or shortness of breath, no dysuria or hematuria, no headache, no runny nose, no unexplained weight loss Past Medical History Past Medical History: Musculoskeletal Disorder Additional Past Medical History / Comment(s): Anemia History of Any Multi-Drug Resistant Organisms: None Reported Past Surgical History: Back Surgery Additional Past Surgical History / Comment(s): dental work Past Anesthesia/Blood Transfusion Reactions: No Reported Reaction Past Psychological History: No Psychological Hx Reported Smoking Status: Current every day smoker Past Alcohol Use History: Rare Past Drug Use History: None Reported - Past Family History Mother Family Medical History: No Reported History Additional Family Medical History / Comment(s): Mother is healthy Father Family Medical History: Cancer Additional Family Medical History / Comment(s): Lung CA Medications and Allergies Home Medications Medication Instructions Recorded Confirmed Type Buprenorphine HCl [Subutex] 8 mg SL DAILY PRN 07/20/18 10/05/18 History Ferrous Sulfate [Feosol] 325 mg PO DAILY 07/20/18 10/05/18 History Finasteride [Proscar] 5 mg PO DAILY 07/20/18 10/05/18 History Indomethacin 25 mg PO TID PRN 07/20/18 10/05/18 History Meloxicam 7.5 mg PO DAILY PRN 07/20/18 10/05/18 History Multivitamins, Thera [Multivitamin 1 tab PO DAILY 07/20/18 10/05/18 History (formulary)] Tamsulosin [Flomax] 0.4 mg PO DAILY 07/20/18 10/05/18 History Vitamin B Complex 1 each PO DAILY 07/20/18 10/05/18 History Omeprazole 40 mg PO DAILY #60 capsule. 07/23/18 10/05/18 Rx Albuterol Inhaler [Ventolin Hfa 2 puff INHALATION RT-Q4H 10/05/18 10/05/18 History Inhaler] Baclofen [Lioresal] 20 mg PO TID 10/05/18 10/05/18 History Cetirizine HCl [Zyrtec] 10 mg PO DAILY 10/05/18 10/05/18 History Lisinopril-Hctz 20-25 mg 1 tab PO DAILY 10/05/18 10/05/18 History [Zestoretic 20-25] Pregabalin [Lyrica] 200 mg PO TID 10/05/18 10/05/18 History buPROPion XL [Wellbutrin XL] 150 mg PO DAILY 10/05/18 10/05/18 History Allergies Allergy/AdvReac Type Severity Reaction Status Date / Time No Known Allergies Allergy Verified 10/05/18 07:59 Surgical - Exam Vital Signs Temp Pulse Resp BP Pulse Ox 97.6 F 114 H 18 91/61 93 L 10/05/18 00:01 10/05/18 00:01 10/05/18 00:01 10/05/18 00:01 10/05/18 00:01 Physical exam: General: Well-developed, well-nourished HEENT: Normocephalic, sclerae nonicteric Abdomen: Nontender, nondistended Extremities: No edema Neuro: Alert and oriented Results - Labs 10/05/18 06:50 10/05/18 00:10 Abnormal Lab Results - Last 24 Hours (Table) 10/05/18 10/05/18 10/05/18 Range/Units 00:10 00:10 00:10 WBC 11.2 H (3.8-10.6) k/uL RBC 2.30 L (4.30-5.90) m/uL Hgb 7.4 L D (13.0-17.5) gm/dL Hct 22.2 L (39.0-53.0) % Neutrophils # 8.7 H (1.3-7.7) k/uL APTT (22.0-30.0) sec Chloride 112 H (98-107) mmol/L Carbon Dioxide 18 L (22-30) mmol/L BUN 49 H (9-20) mg/dL Glucose 243 H (74-99) mg/dL POC Glucose (mg/dL) (75-99) mg/dL Total Creatine Kinase 38 L (55-170) U/L Total Protein 5.2 L (6.3-8.2) g/dL Albumin 3.1 L (3.5-5.0) g/dL Crossmatch 10/05/18 10/05/18 10/05/18 Range/Units 00:10 00:10 06:50 WBC (3.8-10.6) k/uL RBC 2.16 L (4.30-5.90) m/uL Hgb 6.8 L* (13.0-17.5) gm/dL Hct 20.3 L (39.0-53.0) % Neutrophils # (1.3-7.7) k/uL APTT 20.0 L (22.0-30.0) sec Chloride (98-107) mmol/L Carbon Dioxide (22-30) mmol/L BUN (9-20) mg/dL Glucose (74-99) mg/dL POC Glucose (mg/dL) (75-99) mg/dL Total Creatine Kinase (55-170) U/L Total Protein (6.3-8.2) g/dL Albumin (3.5-5.0) g/dL Crossmatch See Detail 10/05/18 Range/Units 08:22 WBC (3.8-10.6) k/uL RBC (4.30-5.90) m/uL Hgb (13.0-17.5) gm/dL Hct (39.0-53.0) % Neutrophils # (1.3-7.7) k/uL APTT (22.0-30.0) sec Chloride (98-107) mmol/L Carbon Dioxide (22-30) mmol/L BUN (9-20) mg/dL Glucose (74-99) mg/dL POC Glucose (mg/dL) 130 H (75-99) mg/dL Total Creatine Kinase (55-170) U/L Total Protein (6.3-8.2) g/dL Albumin (3.5-5.0) g/dL Crossmatch Diabetes panel 10/05/18 Range/Units 00:10 Sodium 139 (137-145) mmol/L Potassium 4.2 (3.5-5.1) mmol/L Chloride 112 H (98-107) mmol/L Carbon Dioxide 18 L (22-30) mmol/L BUN 49 H (9-20) mg/dL Creatinine 1.18 (0.66-1.25) mg/dL Glucose 243 H (74-99) mg/dL Calcium 8.5 (8.4-10.2) mg/dL AST 25 (17-59) U/L ALT 22 (21-72) U/L Alkaline Phosphatase 38 (38-126) U/L Total Protein 5.2 L (6.3-8.2) g/dL Albumin 3.1 L (3.5-5.0) g/dL Calcium panel 10/05/18 Range/Units 00:10 Calcium 8.5 (8.4-10.2) mg/dL Albumin 3.1 L (3.5-5.0) g/dL Pituitary panel 10/05/18 Range/Units 00:10 Sodium 139 (137-145) mmol/L Potassium 4.2 (3.5-5.1) mmol/L Chloride 112 H (98-107) mmol/L Carbon Dioxide 18 L (22-30) mmol/L BUN 49 H (9-20) mg/dL Creatinine 1.18 (0.66-1.25) mg/dL Glucose 243 H (74-99) mg/dL Calcium 8.5 (8.4-10.2) mg/dL Adrenal panel 10/05/18 Range/Units 00:10 Sodium 139 (137-145) mmol/L Potassium 4.2 (3.5-5.1) mmol/L Chloride 112 H (98-107) mmol/L Carbon Dioxide 18 L (22-30) mmol/L BUN 49 H (9-20) mg/dL Creatinine 1.18 (0.66-1.25) mg/dL Glucose 243 H (74-99) mg/dL Calcium 8.5 (8.4-10.2) mg/dL Total Bilirubin 0.2 (0.2-1.3) mg/dL AST 25 (17-59) U/L ALT 22 (21-72) U/L Alkaline Phosphatase 38 (38-126) U/L Total Protein 5.2 L (6.3-8.2) g/dL Albumin 3.1 L (3.5-5.0) g/dL Assessment and Plan (1) Gastrointestinal hemorrhage due to nonsteroidal antiinflammatory drug Narrative/Plan: Continue clear liquids only. Monitor hemoglobin closely. Continue PPIs and Carafate. We'll consult GI for upper endoscopy. Current Visit: Yes Status: Acute Code(s): K92.2 - GASTROINTESTINAL HEMORRHAGE, UNSPECIFIED; T39.395A - ADVERSE EFFECT OF NONSTEROIDAL ANTI- INFLAMMATORY DRUGS, INIT SNOMED Code(s): 60933464
--- NOTE | 2018-10-05 10:41 | P.CNPUL ---
History of Present Illness Consult date: 10/05/18 Requesting physician: Valerio Canales Jr Reason for consult: other Chief complaint: Acute GI bleeding, hematemesis, melena History of present illness: This is a 37-year-old white male patient with previous history chronic back pain, back surgery, BPH, current every day smoker, chronic anemia, who presented to the emergency department on 10/05/2018 per ambulance after having several episodes of vomiting of bright red blood, and passing some dark room blood per rectum. Patient was slightly lightheaded, as he called the EMS. He denied any abdominal pain, denied any chest pain, palpitations, diaphoresis or dizziness. Have a previous episode of GI bleeding in July, had upper endoscopy with Dr. Paulson that showed duodenitis and antral gastritis. Apparently patient has been taken increased amounts of NSAIDs for his chronic back pain, indomethacin, Mobic. Admission hemoglobin was 7.4 he was given a unit of blood, today's hemoglobin is 6.8, he is receiving his second unit of packed red blood cells. He has had no further hematemesis or lower GI bleed episodes since admission. No abdominal pain. Denies any chest pain or shortness of breath. He is resting comfortably in bed, is given a liter of fluid bolus in the emergency department, IV maintenance is 0.9 normal saline at a rate of 100 ML per hour, patient was started on PPI therapy on Protonix 40 mg IV twice a day. Review of Systems All systems: negative Constitutional: Denies chills, Denies fever Eyes: denies blurred vision, denies pain Ears, nose, mouth and throat: Denies headache, Denies sore throat Cardiovascular: Denies chest pain, Denies shortness of breath Respiratory: Denies cough Gastrointestinal: Reports hematemesis, Reports melena, Denies abdominal pain, Denies diarrhea, Denies nausea, Denies vomiting Musculoskeletal: Denies myalgias Integumentary: Denies pruritus, Denies rash Neurological: Denies numbness, Denies weakness Psychiatric: Denies anxiety, Denies depression Endocrine: Denies fatigue, Denies weight change Past Medical History Past Medical History: Musculoskeletal Disorder Additional Past Medical History / Comment(s): Anemia History of Any Multi-Drug Resistant Organisms: None Reported Past Surgical History: Back Surgery Additional Past Surgical History / Comment(s): dental work Past Anesthesia/Blood Transfusion Reactions: No Reported Reaction Past Psychological History: No Psychological Hx Reported Smoking Status: Current every day smoker Past Alcohol Use History: Rare Past Drug Use History: None Reported - Past Family History Mother Family Medical History: No Reported History Additional Family Medical History / Comment(s): Mother is healthy Father Family Medical History: Cancer Additional Family Medical History / Comment(s): Lung CA Medications and Allergies Home Medications Medication Instructions Recorded Confirmed Type Buprenorphine HCl [Subutex] 8 mg SL DAILY PRN 07/20/18 10/05/18 History Ferrous Sulfate [Feosol] 325 mg PO DAILY 07/20/18 10/05/18 History Finasteride [Proscar] 5 mg PO DAILY 07/20/18 10/05/18 History Indomethacin 25 mg PO TID PRN 07/20/18 10/05/18 History Meloxicam 7.5 mg PO DAILY PRN 07/20/18 10/05/18 History Multivitamins, Thera [Multivitamin 1 tab PO DAILY 07/20/18 10/05/18 History (formulary)] Tamsulosin [Flomax] 0.4 mg PO DAILY 07/20/18 10/05/18 History Vitamin B Complex 1 each PO DAILY 07/20/18 10/05/18 History Omeprazole 40 mg PO DAILY #60 capsule.dr 07/23/18 10/05/18 Rx Albuterol Inhaler [Ventolin Hfa 2 puff INHALATION RT-Q4H 10/05/18 10/05/18 History Inhaler] Baclofen [Lioresal] 20 mg PO TID 10/05/18 10/05/18 History Cetirizine HCl [Zyrtec] 10 mg PO DAILY 10/05/18 10/05/18 History Lisinopril-Hctz 20-25 mg 1 tab PO DAILY 10/05/18 10/05/18 History [Zestoretic 20-25] Pregabalin [Lyrica] 200 mg PO TID 10/05/18 10/05/18 History buPROPion XL [Wellbutrin XL] 150 mg PO DAILY 10/05/18 10/05/18 History Allergies Allergy/AdvReac Type Severity Reaction Status Date / Time No Known Allergies Allergy Verified 10/05/18 07:59 Physical Exam Vitals: Vital Signs Temp Pulse Resp BP Pulse Ox 10/05/18 09:30 98.1 F 94 20 115/72 10/05/18 09:03 98.1 F 78 17 111/68 10/05/18 08:53 99.1 F 86 17 111/68 98 10/05/18 08:00 98.4 F 87 10 L 108/66 98 10/05/18 06:14 18 10/05/18 06:12 99.1 F 86 17 111/68 98 10/05/18 06:00 85 19 10/05/18 05:30 86 18 116/93 100 10/05/18 05:28 98.5 F 86 19 116/93 100 10/05/18 05:00 88 17 109/69 100 10/05/18 04:43 98.3 F 96 19 109/69 100 10/05/18 04:30 90 20 111/72 100 10/05/18 04:13 98.0 F 92 18 106/75 10/05/18 04:00 98 19 103/68 100 10/05/18 03:59 97.8 F 92 18 101/67 10/05/18 03:30 92 19 88/65 100 10/05/18 03:00 89 18 111/71 100 10/05/18 02:30 87 17 105/70 100 10/05/18 02:00 94 16 106/66 100 10/05/18 01:30 90 16 106/71 100 10/05/18 01:00 97 21 100/64 100 10/05/18 00:30 106 H 17 92/55 100 10/05/18 00:01 97.6 F 114 H 18 91/61 93 L Intake and Output 10/04/18 10/05/18 10/05/18 22:59 06:59 14:59 Intake Total 310 200 Balance 310 200 Intake: Intake, IV Titration 200 Amount Sodium Chloride 0.9% 1, 200 000 ml @ 100 mls/hr IV . Q10H [facility] Rx#:[id number] Blood Product 310 0 Rc As-3 Unit 0 [id number] Rc Pheresis As-3 Unit 310 [id number] Other: Weight 83.915 kg GENERAL EXAM: Alert, pleasant, 37-year-old white male slightly pale, but comfortable in no apparent distress. HEAD: Normocephalic/atraumatic. EYES: Normal reaction of pupils, equal size. Conjunctiva pink, sclera white. NOSE: Clear with pink turbinates. THROAT: No erythema or exudates. NECK: No masses, no JVD, no thyroid enlargement, no adenopathy. CHEST: No chest wall deformity. Symmetrical expansion. LUNGS: Equal air entry with no crackles, wheeze, rhonchi or dullness. CVS: Regular rate and rhythm, normal S1 and S2, no gallops, no murmurs, no rubs ABDOMEN: Soft, nontender. No hepatosplenomegaly, normal bowel sounds, no guarding or rigidity. EXTREMITIES: No clubbing, no edema, no cyanosis, 2+ pulses and upper and lower extremities. MUSCULOSKELETAL: Muscle strength and tone normal. SPINE: No scoliosis or deformity SKIN: No rashes CENTRAL NERVOUS SYSTEM: Alert and oriented -3. No focal deficits, tone is normal in all 4 extremities. PSYCHIATRIC: Alert and oriented -3. Appropriate affect. Intact judgment and insight. Results - Laboratory Findings CBC and BMP: 10/05/18 06:50 10/05/18 00:10 Abnormal lab findings: Abnormal Labs 10/05/18 10/05/18 10/05/18 00:10 00:10 00:10 WBC 11.2 H RBC 2.30 L Hgb 7.4 L D Hct 22.2 L Neutrophils # 8.7 H APTT Chloride 112 H Carbon Dioxide 18 L BUN 49 H Glucose 243 H POC Glucose (mg/dL) Total Creatine Kinase 38 L Total Protein 5.2 L Albumin 3.1 L Crossmatch 10/05/18 10/05/18 10/05/18 00:10 00:10 06:50 WBC RBC 2.16 L Hgb 6.8 L* Hct 20.3 L Neutrophils # APTT 20.0 L Chloride Carbon Dioxide BUN Glucose POC Glucose (mg/dL) Total Creatine Kinase Total Protein Albumin Crossmatch See Detail 10/05/18 08:22 WBC RBC Hgb Hct Neutrophils # APTT Chloride Carbon Dioxide BUN Glucose POC Glucose (mg/dL) 130 H Total Creatine Kinase Total Protein Albumin Crossmatch - Diagnostic Findings Chest x-ray: report reviewed, image reviewed Additional studies: EKG reviewed Assessment and Plan Plan: Assessment: #1. Acute blood loss anemia, secondary to GI bleeding due to nonsteroidal anti- inflammatory medications #2. Chronic back pain, with previous history of surgery #3. Chronic nicotine dependence #4. BPH Plan: We will continue current IV fluids, patient is receiving his second unit of blood, surgery is following, he is on PPI therapy, hemodynamically patient is stable, no abdominal pain, no further hematemesis or melena. Patient will remain the intensive care unit today, continue to closely monitor. Continue serial H&H's I performed a history & physical examination of the patient and discussed their management with my nurse practitioner, Fariha Jamison. I reviewed the nurse practitioner's note and agree with the documented findings and plan of care. Lung sounds are clear. The findings and the impression was discussed with the patient. I attest to the documentation by the nurse practitioner. Time with Patient: Greater than 30
[2018-10-05] MEDS: ALBUTEROL NEBULIZED 2.5 MG/3 ML INHALATION SCH ×3 (11:54→18:59)
[2018-10-05 12:06] LABS: Hemoglobin A1C 5.6 % (4.0-6.0)
[2018-10-05] MEDS: SUCRALFATE 1 GM TAB PO SCH ×2 (12:39→17:29)
[2018-10-05 13:47] LABS: Basophils # (A) 0.1 k/uL (0-0.2); Basophils % (A) 1 %; Eosinophils # (A) 0.1 k/uL (0-0.7); Eosinophils % (A) 1 %; HGB 7.1 gm/dL (13.0-17.5); Lymphocytes # (A) 1.4 k/uL (1.0-4.8); Lymphocytes % (A) 20 %; MCH 32.6 pg (25.0-35.0); Mean Platelet Volume 8.9; Monocytes # (A) 0.3 k/uL (0-1.0); Monocytes % (A) 5 %; Neutrophils # (A) 4.8 k/uL (1.3-7.7); Neutrophils % (A) 72 %; Platelet Count 146 k/uL (150-450); RBC 2.18 m/uL (4.30-5.90); RDW 14.6 % (11.5-15.5); WBC 6.7 k/uL (3.8-10.6)
[2018-10-05] MEDS: NICOTINE 14MG/24HR PATCH TRANSDERM SCH (17:29)
[2018-10-05 20:15] LABS: Basophils # (A) 0.1 k/uL (0-0.2); Basophils % (A) 1 %; Eosinophils % (A) 1 %; HCT 24.1 % (39.0-53.0); Lymphocytes # (A) 2.2 k/uL (1.0-4.8); Lymphocytes % (A) 30 %; MCH 33.5 pg (25.0-35.0); MCHC 35.6 g/dL (31.0-37.0); MCV 93.9 fL (80.0-100.0); Mean Platelet Volume 9.4; Monocytes # (A) 0.4 k/uL (0-1.0); Monocytes % (A) 6 %; Neutrophils # (A) 4.5 k/uL (1.3-7.7); Neutrophils % (A) 61 %; Platelet Count 161 k/uL (150-450); RBC 2.56 m/uL (4.30-5.90); WBC 7.4 k/uL (3.8-10.6)
[2018-10-05 20:17] LABS: HGB 8.6 gm/dL (13.0-17.5)
[2018-10-05] MEDS: PANTOPRAZOLE 40 MG/10 ML VIAL IV SCH (21:49)
[2018-10-05] MEDS: Buprenorphine Hcl [Subutex] 8 MG SL PRN (22:47)
[2018-10-06 05:40] LABS: Basophils # (A) 0.1 k/uL (0-0.2); Basophils % (A) 1 %; Eosinophils # (A) 0.1 k/uL (0-0.7); Eosinophils % (A) 2 %; Lymphocytes # (A) 1.9 k/uL (1.0-4.8); Lymphocytes % (A) 31 %; MCH 31.7 pg (25.0-35.0); MCHC 33.7 g/dL (31.0-37.0); MCV 94.2 fL (80.0-100.0); Mean Platelet Volume 8.8; Monocytes # (A) 0.3 k/uL (0-1.0); Monocytes % (A) 5 %; Neutrophils # (A) 3.6 k/uL (1.3-7.7); Neutrophils % (A) 59 %; Platelet Count 138 k/uL (150-450); RBC 2.12 m/uL (4.30-5.90); RDW 15.3 % (11.5-15.5); WBC 6.1 k/uL (3.8-10.6)
[2018-10-06 05:50] LABS: HGB 6.7 gm/dL (13.0-17.5)
[2018-10-06] MEDS: ALBUTEROL NEBULIZED 2.5 MG/3 ML INHALATION SCH ×4 (07:53→19:44)
[2018-10-06] MEDS ORDERED: LIDOCAINE 1% INJ 10MG/ML (20 ML MDV) ONE (08:32)
[2018-10-06] MEDS ORDERED: PROPOFOL 10 MG/ML 20 ML VIAL IV ONE (08:32)
[2018-10-06] MEDS ORDERED: LACTATED RINGERS 1,000 ML IV ONE (08:38)
--- NOTE | 2018-10-06 08:56 | P.PCN ---
Date of Procedure: 10/06/18 Procedure(s) Performed: BRIEF HISTORY: Patient is a 37-year-old, pleasant, white male,admitted to the hospital with hematemesis and black tarry stools of 2 days' duration. Initial hemoglobin was 0.5 g/dL. He received total of 4 units of blood transfusion in the last 48 hours. This morning hemoglobin was 6.8 g/dL. He scheduled for an upper endoscopy to evaluate further. He had been taking NSAIDs or chronic back pain for the last several months.. PROCEDURE PERFORMED: Esophagogastroduodenoscopywith Endo Clip placement. PREOPERATIVE DIAGNOSIS: Acute upper GI bleed. IV sedation per anesthesia. PROCEDURE: After informed consent was obtained, the patient was brought into the endoscopy unit. IV sedation was administered by Anesthesia under continuous monitoring. Initially the Olympus GIF-140 video endoscope was inserted into the mouth. Esophagus intubated without any difficulty. It was gradually advanced into the stomach and duodenum and carefully examined. along the duodenal sweep there was a 1 cm superficial ulceration with a visible vessel and small amount of oozing identified. Just distal to this ulceration there was a duodenal stricture with circumferential superficial ulceration but no active bleeding. With gentle pressure I was able to advance scope into the second part of the duodenum that appeared normal. At this time the scope was withdrawn into the stomach adequately insufflated with air, and upon careful examination, mucosa of the antrum,head gastritis and there was a 1 cm superficial antral ulcer in the prepyloric area with no active bleeding. The body, cardia and the fundus appeared normal. The scope was then withdrawn into the esophagus. The GE junction was located at 39 cm from the incisors. The esophagus appeared normal. There were no erosions or ulcerations seen. At this time the scope was advanced into the duodenum and duodenal ulcer was once again visualized. There was a visible vessel was pulsating in the middle of the ulcer and 2 endoclips were placed adjacent to each other with good hemostasis. At this time biopsies were done from the antral ulcer. The scope was withdrawn to the esophagus which appeared normal and the patient tolerated the procedure well. IMPRESSION: 1. 1 cm superficial ulceration with a visible vessel along the duodenal sweep status post Endo Clip placement with good hemostasis. 2. 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 1 cm clean-based antral ulcer with no active bleeding. RECOMMENDATIONS: The findings of this examination were discussed with the patient.He will be continued on Protonix 40 mg twice daily and will be started on a clear liquid diet. Monitor CBC every 12 hours..
[2018-10-06] MEDS ORDERED: INFLUENZA VACCINE (6 MOS+) 60 MCG/0.5 ML SYRINGE IM ONE (09:00)
--- NOTE | 2018-10-06 10:02 | P.PN ---
Subjective Progress Note Date: 10/06/18 Principal diagnosis: Gastrointestinal bleeding This is a 37-year-old white male patient with previous history chronic back pain, back surgery, BPH, current every day smoker, chronic anemia, who presented to the emergency department on 10/05/2018 per ambulance after having several episodes of vomiting of bright red blood, and passing some dark room blood per rectum. Patient was slightly lightheaded, as he called the EMS. He denied any abdominal pain, denied any chest pain, palpitations, diaphoresis or dizziness. Have a previous episode of GI bleeding in July, had upper endoscopy with Dr. Paulson that showed duodenitis and antral gastritis. Apparently patient has been taken increased amounts of NSAIDs for his chronic back pain, indomethacin, Mobic. Admission hemoglobin was 7.4 he was given a unit of blood, today's hemoglobin is 6.8, he is receiving his second unit of packed red blood cells. He has had no further hematemesis or lower GI bleed episodes since admission. No abdominal pain. Denies any chest pain or shortness of breath. He is resting comfortably in bed, is given a liter of fluid bolus in the emergency department, IV maintenance is 0.9 normal saline at a rate of 100 ML per hour, patient was started on PPI therapy on Protonix 40 mg IV twice a day. Patient is seen again today 10/06/2018 in follow-up in the intensive care unit. He is currently awake and alert in no acute distress. He is maintaining good O2 saturations in the upper 90s on room air. He's been afebrile. Hemodynamically stable. He did undergo EGD this morning with subsequent Endo Clip placement to a 1 cm superficial ulceration with visible vessel along the duodenal sweep also noted a 1 cm clean-based antral ulcer with no active bleeding. His hemoglobin this morning was 6.7. He did receive his with unit of packed red blood cells and a follow-up hemoglobin is pending. Objective - Vital Signs Vital signs: Vital Signs Temp 98.3 F 10/06/18 08:30 Pulse 84 10/06/18 08:30 Resp 18 10/06/18 08:30 BP 109/65 10/06/18 08:30 Pulse Ox 99 10/06/18 08:30 Intake & Output 10/05/18 10/06/18 10/06/18 18:59 06:59 18:59 Intake Total 1720 3050 310 Output Total 1100 3000 300 Balance 620 50 10 Weight 83.915 kg 85.6 kg 85.6 kg Intake: Intake, IV Titration 1100 1300 Amount Sodium Chloride 0.9% 1, 1100 1300 000 ml @ 100 mls/hr IV . Q10H [facility] Rx#:[id number] Oral 1440 Blood Product 620 310 310 Rc As-1 Unit 0 310 [id number] Rc As-3 Unit 310 [id number] Rc Pheresis As-3 Unit 310 [id number] Output: Urine 1100 3000 300 Other: Voiding Method Bedside Commode Urinal - Exam GENERAL EXAM: Alert, active, comfortable in no apparent distress. On room air. HEAD: Normocephalic. EYES: Normal reaction of pupils, equal size. NOSE: Clear with pink turbinates. THROAT: No erythema or exudates. NECK: No masses, no JVD. CHEST: No chest wall deformity. LUNGS: Equal air entry with no crackles, wheeze, rhonchi or dullness. CVS: S1 and S2 normal with no audible murmur, regular rhythm. ABDOMEN: No hepatosplenomegaly, normal bowel sounds, no guarding or rigidity. SPINE: No scoliosis or deformity SKIN: No rashes CENTRAL NERVOUS SYSTEM: No focal deficits, tone is normal in all 4 extremities. EXTREMITIES: There is no peripheral edema. No clubbing, no cyanosis. Peripheral pulses are intact. - Labs CBC & Chem 7: 10/06/18 05:20 10/05/18 00:10 Labs: Abnormal Lab Results - Last 24 Hours (Table) 10/05/18 10/05/18 10/05/18 Range/Units 00:10 13:30 20:02 RBC 2.18 L 2.56 L (4.30-5.90) m/uL Hgb 7.1 L 8.6 L D (13.0-17.5) gm/dL Hct 21.0 L 24.1 L (39.0-53.0) % Plt Count 146 L (150-450) k/uL Crossmatch See Detail 10/06/18 Range/Units 05:20 RBC 2.12 L (4.30-5.90) m/uL Hgb 6.7 L* D (13.0-17.5) gm/dL Hct 20.0 L (39.0-53.0) % Plt Count 138 L (150-450) k/uL Crossmatch Assessment and Plan Assessment: Assessment: #1. Acute blood loss anemia, secondary to GI bleeding due to nonsteroidal anti- inflammatory medications emesis status post EGD with Endo Clip placement to a exposed vessel in the duodenum. One other nonbleeding ulceration noted as well. #2. Acute anemia secondary to above, hemoglobin 6.7. He has received 4 units total packed red blood cell infusion. Follow-up hemoglobin pending. #3. Chronic back pain, with previous history of surgery #4. Chronic nicotine dependence #5. BPH Plan: The patient was seen and evaluated by Dr. Mi. Continue to monitor him closely here in the intensive care unit another 24 hours. Follow-up hemoglobin is pending. He remains hemodynamically stable. We'll continue to follow. I, the cosigning physician, performed a history & physical examination of the patient. Lungs sounds are clear. Maintaining good O2 saturations in the 90s on room air. I discussed the assessment and plan of care with my nurse practitioner, Francheska Patel. I attest to the above note as dictated by her.
[2018-10-06 10:29] LABS: HCT 23.4 % (39.0-53.0); MCH 32.6 pg (25.0-35.0); MCHC 35.2 g/dL (31.0-37.0); MCV 92.5 fL (80.0-100.0); Mean Platelet Volume 8.2; Platelet Count 152 k/uL (150-450); RBC 2.52 m/uL (4.30-5.90); RDW 15.4 % (11.5-15.5); WBC 6.1 k/uL (3.8-10.6)
[2018-10-06 10:38] LABS: HGB 8.2 gm/dL (13.0-17.5)
[2018-10-06] MEDS: buPROPion XL 150 MG TAB.ER.24H PO SCH (10:38)
[2018-10-06] MEDS: FERROUS SULFATE 325 MG TAB PO SCH (10:39)
[2018-10-06] MEDS: FINASTERIDE 5 MG TAB PO SCH (10:39)
[2018-10-06] MEDS: NICOTINE 14MG/24HR PATCH TRANSDERM SCH (10:40)
[2018-10-06] MEDS: LORATADINE 10 MG TAB PO SCH (10:40)
[2018-10-06] MEDS: TAMSULOSIN 0.4 MG CAP.ER.24H PO SCH (10:41)
[2018-10-06] MEDS: PREGABALIN 75 MG CAP PO SCH ×3 (10:41→21:28)
[2018-10-06] MEDS: PANTOPRAZOLE 40 MG/10 ML VIAL IV SCH ×2 (10:41→21:28)
[2018-10-06] MEDS: SUCRALFATE 1 GM TAB PO SCH ×3 (10:42→17:58)
[2018-10-06] MEDS: SODIUM CHLORIDE 0.9% 1,000 ML IV SCH ×2 (10:54→17:59)
--- NOTE | 2018-10-06 13:13 | P.PN ---
Subjective Progress Note Date: 10/06/18 Principal diagnosis: Bleeding duodenal ulcer Patient underwent EGD by GI today. He was found have an actively bleeding duodenal ulcer. This was treated with clips by GI. Patient doing well at this time. His received a total of 4 units with a hemoglobin this morning of 8.2. Objective - Vital Signs Vital signs: Vital Signs Temp 98.3 F 10/06/18 08:30 Pulse 86 10/06/18 12:12 Resp 18 10/06/18 11:00 BP 103/66 10/06/18 11:00 Pulse Ox 98 10/06/18 11:00 Intake & Output 10/05/18 10/06/18 10/06/18 18:59 06:59 18:59 Intake Total 1720 3050 710 Output Total 1100 3000 700 Balance 620 50 10 Weight 83.915 kg 85.6 kg 85.6 kg Intake: IV 400 Sodium Chloride 0.9% 1, 400 000 ml @ 100 mls/hr IV . Q10H [facility] Rx#:[id number] Intake, IV Titration 1100 1300 Amount Sodium Chloride 0.9% 1, 1100 1300 000 ml @ 100 mls/hr IV . Q10H [facility] Rx#:[id number] Oral 1440 Blood Product 620 310 310 Rc As-1 Unit 0 310 [id number] Rc As-3 Unit 310 [id number] Rc Pheresis As-3 Unit 310 [id number] Output: Urine 1100 3000 700 Other: Voiding Method Bedside Commode Urinal # Bowel Movements 1 - Exam Abdomen: Soft, nontender, nondistended - Labs CBC & Chem 7: 10/06/18 10:06 10/05/18 00:10 Labs: Abnormal Lab Results - Last 24 Hours (Table) 10/05/18 10/05/18 10/05/18 Range/Units 00:10 13:30 20:02 RBC 2.18 L 2.56 L (4.30-5.90) m/uL Hgb 7.1 L 8.6 L D (13.0-17.5) gm/dL Hct 21.0 L 24.1 L (39.0-53.0) % Plt Count 146 L (150-450) k/uL Crossmatch See Detail 10/06/18 10/06/18 Range/Units 05:20 10:06 RBC 2.12 L 2.52 L (4.30-5.90) m/uL Hgb 6.7 L* D 8.2 L D (13.0-17.5) gm/dL Hct 20.0 L 23.4 L (39.0-53.0) % Plt Count 138 L (150-450) k/uL Crossmatch Assessment and Plan (1) Gastrointestinal hemorrhage due to nonsteroidal antiinflammatory drug Narrative/Plan: Patient doing well after EGD with clip placement. Continue to monitor hemoglobin. Continue clears. Continue antacids and Carafate. Current Visit: Yes Status: Acute Code(s): K92.2 - GASTROINTESTINAL HEMORRHAGE, UNSPECIFIED; T39.395A - ADVERSE EFFECT OF NONSTEROIDAL ANTI- INFLAMMATORY DRUGS, INIT SNOMED Code(s): 75182498
--- NOTE | 2018-10-06 14:06 | CONS ---
CONSULTATION DATE OF SERVICE: 10/06/2018. REASON FOR CONSULTATION: Acute upper gastrointestinal bleed. HISTORY OF PRESENT ILLNESS: The patient is a 57-year-old white male who was admitted to the hospital two days ago with acute upper gastrointestinal bleed. He had multiple episodes of hematemesis followed by black tarry stools on Friday and came to the emergency room Friday night. His his initial hemoglobin was 6.8 g/dL. He received 2 units of blood transfusion and then it continued to drop and this morning hemoglobin was 6.7 and currently receiving his 4th unit of blood transfusion. The patient has been taking Motrin and Mobic for the last several months for chronic back pain. He did have an upper endoscopy and colonoscopy as a part of workup of anemia by Dr. Paulson 2 months ago and according to the patient it showed some duodenitis. PAST MEDICAL HISTORY: Chronic back pain. PAST SURGICAL HISTORY: Back surgery, recent EGD and colonoscopy 2 months ago. MEDICATIONS: At home include Feosol, Proscar, multivitamin, omeprazole, Ventolin, tetrazine, , Lyrica, Zestoretic, Wellbutrin. ALLERGIES: None. SOCIAL HISTORY: Chronic smoker. No alcohol use. FAMILY HISTORY: Mother is healthy. Father had lung cancer. REVIEW OF SYSTEMS: CARDIOPULMONARY: No chest pain, shortness of breath. GENITOURINARY: No dysuria or hematuria. MUSCULOSKELETAL: Unremarkable. SKIN: Unremarkable. ENDOCRINE: Unremarkable. PSYCHIATRIC: Unremarkable. NEUROLOGIC: Unremarkable. ENT: Vision unremarkable. MUSCULOSKELETAL: Back pain. CONSTITUTIONAL: No recent weight loss. No fever, chills, night sweats. PHYSICAL EXAMINATION: He appears comfortable. No apparent distress vital signs stable. Blood pressure is 119/60, pulse is 79, temperature 98.5. HEENT examination unremarkable. Conjunctivae pink. Sclerae anicteric. Oral cavity no lesions. Neck, no JVD or lymph node enlargement. Chest clear to auscultation. Heart regular rate and rhythm. Abdomen is soft. It was nontender, nondistended. Bowel sounds are positive. No organomegaly. Extremities no pedal edema. Skin no rashes. Neurologic,, alert and oriented x3. No focal deficits. LABS: Labs at the time of admission to the hospital, hemoglobin was 6.8, WBC 7.2, platelets are normal. BUN 49, creatinine 1.18. This morning hemoglobin 6.7 after 3 units of blood transfusion. IMPRESSION: 1. Acute upper gastrointestinal bleed with significant anemia, status post total of 4 units of blood transfusion so far. He has been taking NSAIDs over the last several months for chronic back pain. Had multiple episodes of hematemesis and black tarry stools at the time of presentation to the hospital. Most likely dealing with peptic ulcer disease. 2. Chronic back pain. RECOMMENDATIONS: 1. Continue with IV Protonix 40 mg every 12 hours. 2. We will proceed with an EGD today. Discussed with the patient risks, benefits and complications and he is agreeable to it. Monitor CBC every 12 hours and transfuse if hemoglobin is less than 7. Thank you for this consultation. MMODL / IJN: [id number] /
[2018-10-06 19:58] LABS: Anisocytosis Slight; HCT 23.5 % (39.0-53.0); HGB 7.9 gm/dL (13.0-17.5); MCH 32.2 pg (25.0-35.0); MCHC 33.8 g/dL (31.0-37.0); MCV 95.2 fL (80.0-100.0); Mean Platelet Volume 8.3; Platelet Count 173 k/uL (150-450); RBC 2.46 m/uL (4.30-5.90); RDW 16.2 % (11.5-15.5); WBC 5.6 k/uL (3.8-10.6)
[2018-10-06] MEDS: Buprenorphine Hcl [Subutex] 8 MG SL PRN (23:55)
[2018-10-07 05:10] LABS: Anion Gap 2 mmol/L; Blood Urea Nitrogen 10 mg/dL (9-20); Calcium 8.2 mg/dL (8.4-10.2); Carbon Dioxide 25 mmol/L (22-30); Chloride 112 mmol/L (98-107); Glucose 100 mg/dL (74-99); Potassium 3.6 mmol/L (3.5-5.1); Sodium 139 mmol/L (137-145)
[2018-10-07 05:43] LABS: Anisocytosis Slight; HCT 21.2 % (39.0-53.0); HGB 7.2 gm/dL (13.0-17.5); MCH 32.2 pg (25.0-35.0); MCV 94.8 fL (80.0-100.0); Mean Platelet Volume 8.1; Platelet Count 168 k/uL (150-450); RBC 2.24 m/uL (4.30-5.90); RDW 16.4 % (11.5-15.5); WBC 5.1 k/uL (3.8-10.6)
[2018-10-07] MEDS ORDERED: Potassium Replacement Protocol 1 EACH MISC MISCELLANE PRN (05:46)
[2018-10-07] MEDS ORDERED: POTASSIUM CHLORIDE ER 20 MEQ TAB.ER PO SCH (06:00)
[2018-10-07] MEDS: SODIUM CHLORIDE 0.9% 1,000 ML IV SCH ×2 (06:15→16:08)
[2018-10-07] MEDS: ALBUTEROL NEBULIZED 2.5 MG/3 ML INHALATION SCH ×4 (07:38→20:14)
[2018-10-07] MEDS: TAMSULOSIN 0.4 MG CAP.ER.24H PO SCH (08:05)
[2018-10-07] MEDS: LORATADINE 10 MG TAB PO SCH (08:06)
[2018-10-07] MEDS: SUCRALFATE 1 GM TAB PO SCH ×3 (08:06→16:39)
[2018-10-07] MEDS: FERROUS SULFATE 325 MG TAB PO SCH (08:06)
[2018-10-07] MEDS: PREGABALIN 75 MG CAP PO SCH ×3 (08:06→21:47)
[2018-10-07] MEDS: PANTOPRAZOLE 40 MG/10 ML VIAL IV SCH ×2 (08:07→21:47)
[2018-10-07] MEDS: NICOTINE 14MG/24HR PATCH TRANSDERM SCH (08:08)
[2018-10-07] MEDS: buPROPion XL 150 MG TAB.ER.24H PO SCH (08:39)
[2018-10-07] MEDS: FINASTERIDE 5 MG TAB PO SCH (08:40)
--- NOTE | 2018-10-07 09:24 | P.PN ---
Subjective Progress Note Date: 10/07/18 Principal diagnosis: Bleeding duodenal ulcer Patient doing well today. He had a small stool that was nonbloody. Patient was given iron today. Hemoglobin 7.2 from 8.2 yesterday. Denies abdominal pain. No weakness or syncopal episodes. Objective - Vital Signs Vital signs: Vital Signs Temp 98.1 F 10/07/18 08:00 Pulse 90 10/07/18 08:00 Resp 18 10/07/18 08:15 BP 121/68 10/07/18 08:00 Pulse Ox 99 10/07/18 08:00 Intake & Output 10/06/18 10/07/18 10/07/18 18:59 06:59 18:59 Intake Total 1790 1700 200 Output Total 2200 1000 Balance -410 700 200 Weight 85.6 kg 84.6 kg Intake: IV 1000 1200 200 Sodium Chloride 0.9% 1, 1000 1200 200 000 ml @ 100 mls/hr IV . Q10H [facility] Rx#:[id number] Oral 500 Blood Product 790 Rc As-1 Unit 310 [id number] Output: Urine 2200 1000 Other: Voiding Method Bedside Commode Bedside Commode Bedside Commode Urinal Urinal Urinal # Voids 1 0 2 # Bowel Movements 1 - Exam Abdomen: Soft, nontender, nondistended - Labs CBC & Chem 7: 10/07/18 04:43 10/07/18 04:43 Labs: Abnormal Lab Results - Last 24 Hours (Table) 10/06/18 10/06/18 10/07/18 Range/Units 10:06 19:07 04:43 RBC 2.52 L 2.46 L 2.24 L (4.30-5.90) m/uL Hgb 8.2 L D 7.9 L 7.2 L (13.0-17.5) gm/dL Hct 23.4 L 23.5 L 21.2 L (39.0-53.0) % RDW 16.2 H 16.4 H (11.5-15.5) % Chloride (98-107) mmol/L Glucose (74-99) mg/dL Calcium (8.4-10.2) mg/dL 10/07/18 Range/Units 04:43 RBC (4.30-5.90) m/uL Hgb (13.0-17.5) gm/dL Hct (39.0-53.0) % RDW (11.5-15.5) % Chloride 112 H (98-107) mmol/L Glucose 100 H (74-99) mg/dL Calcium 8.2 L (8.4-10.2) mg/dL Assessment and Plan (1) Gastrointestinal hemorrhage due to nonsteroidal antiinflammatory drug Narrative/Plan: Continue antiacid therapy. Monitor hemoglobin. Hold iron so we can monitor for melanotic stools. Advance diet. Anticipate probable discharge tomorrow. Current Visit: Yes Status: Acute Code(s): K92.2 - GASTROINTESTINAL HEMORRHAGE, UNSPECIFIED; T39.395A - ADVERSE EFFECT OF NONSTEROIDAL ANTI- INFLAMMATORY DRUGS, INIT SNOMED Code(s): 77910118
--- NOTE | 2018-10-07 11:57 | PN ---
PROGRESS NOTE 37-year-old gentleman with a history of gastrointestinal bleeding. The patient underwent an endoscopy yesterday. He had an EGD. He had Endoclip placement of a 1 cm superficial ulceration with visible vessel along the duodenal sweep. The patient's hemoglobin today was 7.2. Since he has been here, he is using 4 units of PRBCs. Currently not receiving any supplemental oxygen. There has no been no additional bleeding. He is getting a 0.9 IV at 100 mL an hour. The patient could be transferred out to a general medical floor. He otherwise is doing very well. No major complaints. No pain. No shortness of breath, difficulty breathing, or anything like that. He was admitted back on the . This is his 2nd episode. Appeared to be caused by excessive use of nonsteroid anti-inflammatory drugs. Current vital signs are reviewed. Temperature 98.1, heart rate 90, respiratory 13, blood pressure 121/68, mean 85 and room air saturation 99%. Appears in no acute distress. HEENT examination is grossly unremarkable. Mucous membranes are moist. No oral lesions. Neck is supple. Full range of motion. No adenopathy or thyromegaly. Neck veins are flat. Cardiovascular examination reveals regular rhythm rate. Heart rate 88 to 90 beats per minute. S1, S2 normal. Lungs clear. Breath sounds equal. No wheezes or rhonchi. No crackles. Abdomen is soft. Bowel sounds are heard. Extremities are intact. No cyanosis, clubbing, or edema. Skin without rash. Neurologic examination is brief but nonfocal. LABORATORY STUDIES: White count 5.1, hemoglobin 7.2, hematocrit 21.2, platelet count 168,000. Sodium, potassium normal. Chloride is 112, CO2 25, BUN and creatinine were 10 and 0.75. No x-rays to speak. ASSESSMENT: 1. Acute gastrointestinal bleed secondary to duodenitis, from excessive use of nonsteroid anti-inflammatory drugs, status post EGD with Endoclip placement. The patient has received 4 units of PRBCs since being admitted. 2. Acute anemia secondary to above. 3. Chronic back pain. 4. Chronic nicotine dependence. 5. Benign prostatic hypertrophy. PLAN: From my perspective, the patient could be discharged out to the general medical floor. Telemetry is not needed. Additional recommendations and suggestions are forthcoming. He has been counseled about the importance of refraining from using the nonsteroid anti- inflammatory drugs as he has been using it. This is his second episode of Gastrointestinal bleed for the same reason. MMODL / IJN: [id number] /
[2018-10-07 19:28] LABS: HCT 22.9 % (39.0-53.0); HGB 7.7 gm/dL (13.0-17.5); MCH 32.4 pg (25.0-35.0); MCHC 33.9 g/dL (31.0-37.0); MCV 95.5 fL (80.0-100.0); Mean Platelet Volume 8.3; Platelet Count 198 k/uL (150-450); RBC 2.39 m/uL (4.30-5.90); RDW 15.9 % (11.5-15.5); WBC 5.4 k/uL (3.8-10.6)
--- NOTE | 2018-10-07 22:14 | P.PN ---
Subjective Progress Note Date: 10/07/18 Principal diagnosis: upper GI bleed, anemia of acute blood loss The patient reports that he is doing well. No further signs or symptoms of GI bleeding. He reports a non-melanotic bowel movement today. He has tolerated his diet so far. No complaints of abdominal pain. Objective - Vital Signs Vital signs: Vital Signs Temp 98.1 F 10/07/18 16:00 Pulse 92 10/07/18 20:25 Resp 14 10/07/18 19:00 BP 125/65 10/07/18 19:00 Pulse Ox 96 10/07/18 19:00 Intake & Output 10/07/18 10/07/18 10/08/18 06:59 18:59 06:59 Intake Total 1700 1200 100 Output Total 1000 Balance 700 1200 100 Weight 84.6 kg Intake: IV 1200 1200 100 Sodium Chloride 0.9% 1, 1200 1200 100 000 ml @ 100 mls/hr IV . Q10H RUDI Rx#:[id number] Oral 500 Output: Urine 1000 Other: Voiding Method Bedside Commode Bedside Commode Urinal Urinal # Voids 0 0 0 - Exam On physical examination, patient appears comfortable in no apparent distress. HEAD: Normocephalic, atraumatic. EYES: No scleral icterus. No conjunctival injection. MOUTH: No lesions, tongue midline. NECK: Trachea midline, no gross abnormalities. CHEST: Clear to auscultation with no wheezing or rhonchi appreciated. HEART: Regular rate and rhythm. ABDOMEN: Soft, obese. Bowel sounds are positive. No organomegaly. No guarding or rigidity. EXTREMITIES: No pedal edema. SKIN: No rashes, no jaundice. NEUROLOGIC: Alert and oriented x3. No focal deficits. - Labs CBC & Chem 7: 10/07/18 18:59 10/07/18 04:43 Labs: Abnormal Lab Results - Last 24 Hours (Table) 10/07/18 10/07/18 10/07/18 Range/Units 04:43 04:43 18:59 RBC 2.24 L 2.39 L (4.30-5.90) m/uL Hgb 7.2 L 7.7 L (13.0-17.5) gm/dL Hct 21.2 L 22.9 L (39.0-53.0) % RDW 16.4 H 15.9 H (11.5-15.5) % Chloride 112 H (98-107) mmol/L Glucose 100 H (74-99) mg/dL Calcium 8.2 L (8.4-10.2) mg/dL Assessment and Plan (1) Gastrointestinal hemorrhage due to nonsteroidal antiinflammatory drug Narrative/Plan: patient presenting with complaints of hematemesis and melena secondary to use of NSAIDs. Patient is status post EGD with findings of a duodenal ulcer which was clipped, antral ulceration and stricture. His hemoglobin is 7.2 today from 7.9. His been started on iron therapy. He denies any signs or symptoms of GI bleeding. He is tolerating a full liquid diet. Current Visit: Yes Status: Acute Code(s): K92.2 - GASTROINTESTINAL HEMORRHAGE, UNSPECIFIED; T39.395A - ADVERSE EFFECT OF NONSTEROIDAL ANTI- INFLAMMATORY DRUGS, INIT SNOMED Code(s): 57891616 (2) Anemia due to blood loss Current Visit: Yes Status: Acute Code(s): D50.0 - IRON DEFICIENCY ANEMIA SECONDARY TO BLOOD LOSS (CHRONIC) SNOMED Code(s): 680799826 (3) Melena Current Visit: Yes Status: Acute Code(s): K92.1 - MELENA SNOMED Code(s): 6279097 Plan: Supportive care Continue ICU management Continue to monitor hemoglobin and transfuse as needed Continue IV Protonix therapy Continue to monitor for signs or symptoms GI bleed Continue full liquid diet Patient will need to follow-up with gastroenterology in 2 weeks after discharge for scheduling of repeat upper endoscopy to ensure for gastric ulcer healing Thank you for allowing us to participate in the care of this patient we will continue to follow
[2018-10-07] MEDS: Buprenorphine Hcl [Subutex] 8 MG SL PRN (23:12)
[2018-10-08 08:21] VITALS: BP 118/71; RESP 16; TEMP 98
[2018-10-08] MEDS: buPROPion XL 150 MG TAB.ER.24H PO SCH (08:24)
[2018-10-08] MEDS: NICOTINE 14MG/24HR PATCH TRANSDERM SCH (08:24)
[2018-10-08] MEDS: SUCRALFATE 1 GM TAB PO SCH (08:24)
[2018-10-08] MEDS: PANTOPRAZOLE 40 MG/10 ML VIAL IV SCH (08:24)
[2018-10-08] MEDS: PREGABALIN 75 MG CAP PO SCH (08:24)
[2018-10-08] MEDS: LORATADINE 10 MG TAB PO SCH (08:24)
[2018-10-08] MEDS: TAMSULOSIN 0.4 MG CAP.ER.24H PO SCH (08:24)
[2018-10-08] MEDS: SODIUM CHLORIDE 0.9% 1,000 ML IV SCH (08:25)
[2018-10-08] MEDS: FINASTERIDE 5 MG TAB PO SCH (08:25)
[2018-10-08] MEDS: ALBUTEROL NEBULIZED 2.5 MG/3 ML INHALATION SCH (08:53)
[2018-10-08 08:57] VITALS: PULSE 90
[2018-10-08 09:53] LABS: Anisocytosis Slight; Basophils % (A) 1 %; Eosinophils # (A) 0.3 k/uL (0-0.7); Eosinophils % (A) 6 %; HCT 23.2 % (39.0-53.0); HGB 8.1 gm/dL (13.0-17.5); Lymphocytes # (A) 1.9 k/uL (1.0-4.8); Lymphocytes % (A) 37 %; MCH 33.4 pg (25.0-35.0); MCHC 34.7 g/dL (31.0-37.0); MCV 96.2 fL (80.0-100.0); Macrocytosis Slight; Mean Platelet Volume 7.8; Monocytes # (A) 0.3 k/uL (0-1.0); Monocytes % (A) 5 %; Neutrophils # (A) 2.6 k/uL (1.3-7.7); Neutrophils % (A) 50 %; Platelet Count 196 k/uL (150-450); RBC 2.41 m/uL (4.30-5.90); RDW 16.4 % (11.5-15.5); WBC 5.2 k/uL (3.8-10.6)
[2018-10-08 10:01] LABS: Anion Gap 5 mmol/L; Blood Urea Nitrogen 5 mg/dL (9-20); Calcium 9.1 mg/dL (8.4-10.2); Carbon Dioxide 27 mmol/L (22-30); Chloride 109 mmol/L (98-107); Glucose 96 mg/dL (74-99); Potassium 3.7 mmol/L (3.5-5.1); Sodium 141 mmol/L (137-145)
--- NOTE | 2018-10-08 10:23 | PN ---
PROGRESS NOTE DATE OF SERVICE: 10/08/2018 This is a 37-year-old male with a history of acute GI bleed secondary to duodenitis caused by excessive use of nonsteroidal anti-inflammatory drugs including Mobic and Indocin. The patient is status post Endoclip placement during his EGD. During this admission, he has received 4 units of PRBCs. This is his second upper GI bleed from nonsteroid-type drugs. He has a history of acute anemia, chronic back pain, chronic nicotine dependence, BPH. I did tell his to go home and throw away all the Mobic and all the Indocin in the house. The patient is stable and probably could be discharged from the hospital today. Will wait for the primary service. Current vital signs are reviewed. Temperature 98, heart rate is 90, respiratory rate 16, blood pressure 118/71, mean 86 and room air saturations 99%. Appears in no acute distress. HEENT examination is grossly unremarkable. Mucous membranes are moist. No oral lesions. Neck is supple. Full range of motion. No adenopathy or thyromegaly. Neck veins are flat. Cardiovascular examination reveals regular rhythm and rate. S1, S2 normal. No S3, S4, or murmur. Lungs are clear, breath sounds equal. No wheezes, rhonchi, or crackles. Abdomen is soft, bowel sounds are heard. Extremities are intact. No cyanosis, clubbing, or edema. Skin without rash. Neurologic examination is brief but nonfocal. LABORATORY DATA: Reviewed. White count 5.4, hemoglobin 7.7, hematocrit 22.9, platelet count 198,000. His electrolyte profile looks relatively normal. Calcium 8.2. Medications are reviewed. ASSESSMENT: 1. Acute gastrointestinal bleed secondary to duodenitis caused by excessive use of nonsteroid anti-inflammatory drugs, i.e. Indocin and Mobic. The patient had an EGD with Endoclip placement. 2. Acute anemia, secondary to above, status post 4 units of PRBCs. 3. Chronic back pain. 4. Chronic nicotine dependence. 5. Benign prostatic hypertrophy. PLAN: Patient is doing well. From my perspective, he could be discharged from the unit. No additional recommendations are made. Will continue to follow. Prognosis is guarded. MMODL / IJN: [id number] /
--- NOTE | 2018-10-08 10:52 | P.DS ---
Providers Date of admission: 10/05/18 02:02 Expected date of discharge: 10/08/18 Attending physician: Valerio Canales Consults: 10/05/18 01:44 Consult Physician Stat Consulting Provider: Ladarius Mi Consult Reason/Comments: gi bleeding. anemia Do you want consulting provider notified?: Already Contacted Consult Physician Urgent Consulting Provider: Sincere Paulson Consult Reason/Comments: GI bleeding. Patient known to you Do you want consulting provider notified?: Yes 10/05/18 10:06 Consult Physician Routine Consulting Provider: Matilde Sanderson Consult Reason/Comments: Upper GI bleed Do you want consulting provider notified?: Already Contacted Primary care physician: Owen Gene [facility] Course: 37-year-old male with a past medical history significant for chronic back pain, who presented to the emergency room with a chief complaint of dark blood per rectum. Patient states he had 5-6 episodes at home of dark red blood stools in addition to an episode of bright red vomiting. The patient has been taking indomethacin, Mobic, and Motrin due to his chronic back pain. He states he saw Dr. Mills last week and was taken off of his Mobic and indomethacin. He reports he is still been taking Motrin. The patient underwent EGD and colonoscopy in July of this year by Dr. Paulson due to anemiawhich revealed duodenitis, antral gastritis, normal colon, and no evidence of an active GI bleed. The patient states at that time he only had blood when he wiped and thought it may be due to hemorrhoids. Laboratory data upon admission revealed white count 11.2. Hemoglobin 7.4. Repeat hemoglobin today is 6.8. Platelet count 239. Sodium 139. Potassium 4.2. BUN 49. Creatinine 1.18. Glucose 243. The patient underwent EGD revealing 1 cm superficial ulceration with a visible vessel along the duodenal sweep status post Endo Clip placement with good hemostasis. 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 1 cm clean-based antral ulcer with no active bleeding. The patient was started on Carafate with meals. The patient received a total of 4 units packed RBCs during hospital's hospitalization. His hemoglobin on the day of discharge is 8.1. The patient is stable for discharge home today. He was educated on avoiding all NSAIDs including [id number] Motrin and Aleve. He was instructed to discontinue his Mobic and indomethacin. Patient verbalized understanding. Patient states he has a follow-up appointment scheduled with Dr. Mills on October 16. We will repeat his CBC at that time. Patient is to follow up with Dr. Sanderson in 2 weeks Discharge Diagnosis: Hematemesis and melena due to GI bleeding secondary to NSAIDS History of EGD and colonoscopy, July 2018, revealing duodenitis and antral gastritis Chronic back pain, with history of back surgery History of prescription pain pill abuse, patient reports taking more than prescribed Nicotine dependence Nurse practitioner note has been reviewed by physician. Signing provider agrees with the documented findings, assessment, and plan of care. Patient Condition at Discharge: Stable Plan - Discharge Summary Discharge Rx Participant: No New Discharge Prescriptions: New Sucralfate [Carafate] 1 gm PO AC-TID #90 tab Continue Multivitamins, Thera [Multivitamin (formulary)] 1 tab PO DAILY Ferrous Sulfate [Iron (65 MG Elemental)] 325 mg PO DAILY Vitamin B Complex 1 each PO DAILY Finasteride [Proscar] 5 mg PO DAILY Tamsulosin [Flomax] 0.4 mg PO DAILY Buprenorphine HCl [Subutex] 8 mg SL DAILY PRN PRN Reason: back pain Omeprazole 40 mg PO DAILY #60 capsule. buPROPion XL [Wellbutrin XL] 150 mg PO DAILY Pregabalin [Lyrica] 200 mg PO TID Albuterol Inhaler [Ventolin Hfa Inhaler] 2 puff INHALATION RT-Q4H Baclofen [Lioresal] 20 mg PO TID Cetirizine HCl [Zyrtec] 10 mg PO DAILY Discontinued Meloxicam 7.5 mg PO DAILY PRN PRN Reason: back pain Indomethacin 25 mg PO TID PRN PRN Reason: headaches Lisinopril-Hctz 20-25 mg [Zestoretic 20-25] 1 tab PO DAILY Discharge Medication List Buprenorphine HCl [Subutex] 8 mg SL DAILY PRN 07/20/18 [History] Ferrous Sulfate [Iron (65 MG Elemental)] 325 mg PO DAILY 07/20/18 [History] Finasteride [Proscar] 5 mg PO DAILY 07/20/18 [History] Multivitamins, Thera [Multivitamin (formulary)] 1 tab PO DAILY 07/20/18 [History ] Tamsulosin [Flomax] 0.4 mg PO DAILY 07/20/18 [History] Vitamin B Complex 1 each PO DAILY 07/20/18 [History] Omeprazole 40 mg PO DAILY #60 capsule.dr 07/23/18 [Rx] Albuterol Inhaler [Ventolin Hfa Inhaler] 2 puff INHALATION RT-Q4H 10/05/18 [ History] Baclofen [Lioresal] 20 mg PO TID 10/05/18 [History] Cetirizine HCl [Zyrtec] 10 mg PO DAILY 10/05/18 [History] Pregabalin [Lyrica] 200 mg PO TID 10/05/18 [History] buPROPion XL [Wellbutrin XL] 150 mg PO DAILY 10/05/18 [History] Sucralfate [Carafate] 1 gm PO AC-TID #90 tab 10/08/18 [Rx] Follow up Appointment(s)/Referral(s): Matilde Sanderson MD [STAFF PHYSICIAN] - 2 Weeks Owen Mills MD [Primary Care Provider] - 10/16/18 (Patient has appt already scheduled) Patient Instructions/Handouts: Gastrointestinal Bleeding (ED) Activity/Diet/Wound Care/Special Instructions: Do not take any NSAIDs Do not take ibuprofen/Motrin, naproxen/Aleve, aspirin, Mobic, or indomethacin Continue to hold your lisinopril-hctz. Recheck your blood pressure at follow up appointment with Dr. Mills Repeat CBC at follow up appointment with Dr. Mills
== END 2018-10-08 11:27 | disposition home or self-care (01) | DRG 378 ==
LOC: EC 23:59 → 2SICU 10-05 02:02
PROVIDERS: ADMIT Family Medicine; ATTEND Family Medicine
PROC: 30233N1 Transfusion of Nonautologous Red Blood Cells into Peripheral Vein, Percutaneous Approach (ICD-10-PCS; 2018-10-05)
PROC: 0W3P8ZZ Control Bleeding in Gastrointestinal Tract, Via Natural or Artificial Opening Endoscopic (ICD-10-PCS; principal; 2018-10-06 08:00)
DX: K26.4 Chronic or unspecified duodenal ulcer with hemorrhage (principal); D62 Acute posthemorrhagic anemia; K31.5 Obstruction of duodenum; G89.29 Other chronic pain; K25.9 Gastric ulcer, unspecified as acute or chronic, without hemorrhage or perforation; K29.70 Gastritis, unspecified, without bleeding; K29.81 Duodenitis with bleeding; N40.0 Benign prostatic hyperplasia without lower urinary tract symptoms; T39.395A Adverse effect of other nonsteroidal anti-inflammatory drugs [NSAID], initial encounter; M54.9 Dorsalgia, unspecified; F17.210 Nicotine dependence, cigarettes, uncomplicated; J45.909 Unspecified asthma, uncomplicated; F32.9 Major depressive disorder, single episode, unspecified; K21.9 Gastro-esophageal reflux disease without esophagitis; Z79.899 Other long term (current) drug therapy; Z80.1 Family history of malignant neoplasm of trachea, bronchus and lung
CPT/HCPCS: 36415; 43239; 43255; 80048; 80053; 82550; 82553; 83036; 84484; 85025; 85027; 85730; 86850; 86900; 86901; 86920; 88305; 90686; 93005; 94640; 96361; 96374; 99291

== ENCOUNTER → 2018-11-03 | Outpatient (CLI) | payer OTHER ==
[2018-11-03 17:05] LABS: Hyaline Casts,Urine 3 /lpf (0-2); Mucus,Urine Rare /hpf; RBC,Urine 1 /hpf (0-5); WBC,Urine 9 /hpf (0-5)
[2018-11-03 17:12] LABS: Appearance,Urine Clear (Clear); Bilirubin,Urine Negative (Negative); Blood,Urine Negative (Negative); Color,Urine Yellow; Glucose,Urine (UA) Negative (Negative); Ketones,Urine Negative (Negative); Leukocyte Esterase,Urine Small (Negative); Nitrite,Urine Negative (Negative); Protein,Urine Trace (Negative); Specific Gravity,Urine 1.031 (1.001-1.035)
[2018-11-03 17:25] LABS: Basophils # (A) 0.1 k/uL (0-0.2); Basophils % (A) 1 %; Eosinophils # (A) 0.3 k/uL (0-0.7); Eosinophils % (A) 4 %; HCT 38.4 % (39.0-53.0); Lymphocytes # (A) 2.2 k/uL (1.0-4.8); Lymphocytes % (A) 30 %; MCH 31.4 pg (25.0-35.0); MCHC 31.6 g/dL (31.0-37.0); MCV 99.5 fL (80.0-100.0); Macrocytosis Slight; Mean Platelet Volume 8.4; Monocytes # (A) 0.3 k/uL (0-1.0); Monocytes % (A) 5 %; Neutrophils # (A) 4.1 k/uL (1.3-7.7); Neutrophils % (A) 57 %; Platelet Count 217 k/uL (150-450); RBC 3.86 m/uL (4.30-5.90); RDW 15.9 % (11.5-15.5); WBC 7.1 k/uL (3.8-10.6)
[2018-11-03 17:27] LABS: HGB 12.1 gm/dL (13.0-17.5)
[2018-11-04 01:55] LABS: Anti-DNA, DS unit <1.0 IU/mL; DNA Double-Stranded NEGATIVE (NEGATIVE)
[2018-11-04 02:30] LABS: Parathyroid Hormone Intact 17.2 pg/mL (14.0-72.0)
[2018-11-04 02:47] LABS: Protein, Total 6.6 g/dL (6.2-8.2)
[2018-11-04 03:02] LABS: Iron Saturation 21.18 (15.00-50.00)
[2018-11-04 03:05] LABS: Albumin 4.7 g/dL (3.80-4.90); Anion Gap 9.7 mmol/L (4.00-12.00); Calcium 9.6 mg/dL (8.7-10.3); Carbon Dioxide 26.3 mmol/L (21.6-31.8); Magnesium 1.8 mg/dL (1.5-2.4); Phosphorus 4.7 mg/dL (2.4-5.1); Potassium 4.4 mmol/L (3.5-5.5); Uric Acid 5.2 mg/dL (3.7-8.7)
[2018-11-04 03:11] LABS: Vitamin D 25 Hydroxy 27.1 ng/mL (30.0-100.0)
[2018-11-04 05:42] LABS: Creatinine,Urine Random 181.8 mg/dL
[2018-11-04 06:08] LABS: Total Protein,Urine Random 21.9 mg/dL (0.0-13.5)
[2018-11-04 12:41] LABS: Albumin 4.11 g/dL (3.80-4.90); Gamma Globulin 0.65 g/dL (0.70-1.50)
[2018-11-04 13:34] LABS: C-ANCA <1:20 Titer (<1:20); P-ANCA <1:20 Titer (<1:20)
[2018-11-05 06:11] LABS: Hepatitis C IgG Antibody Non-Reactive (Non-Reactive)
== END | disposition home or self-care (01) ==
LOC: LABWHC1 15:16
PROVIDERS: ATTEND Internal Medicine Nephrology
DX: N17.9 Acute kidney failure, unspecified (principal); R80.9 Proteinuria, unspecified; R53.83 Other fatigue; E55.9 Vitamin D deficiency, unspecified; D64.9 Anemia, unspecified; E21.3 Hyperparathyroidism, unspecified; M10.9 Gout, unspecified; N39.0 Urinary tract infection, site not specified
CPT/HCPCS: 36415; 80048; 81001; 82040; 82306; 82570; 82728; 83516; 83540; 83550; 83735; 83970; 84100; 84156; 84165; 84550; 85025; 86038; 86160; 86162; 86225; 86255; 86335; 86803; 87340

== ENCOUNTER → 2019-01-14 | Outpatient (CLI) | payer OTHER ==
--- NOTE | 2019-01-15 07:21 | XR ---
Abdomen HISTORY: Kidney stones Frontal view of the abdomen on [address] dated 10/02/2018 Degenerative disc changes present in the visualized spine. No evident pneumoperitoneum or bowel obstr uction. Overlying bowel gas may obscure detail. Calcifications in the pelvis are likely phleboliths. Lung bases are clear. IMPRESSION: Bowel gas may obscure underlying renal calcifications.
== END ==
LOC: RADXRMAIN 16:41
PROVIDERS: ATTEND Urology
DX: N20.0 Calculus of kidney (principal)
CPT/HCPCS: 74018

== ENCOUNTER 2019-05-05 07:21 | Inpatient (IN) | payer OTHER ==
[2019-05-05] MEDS ORDERED: SODIUM CHLORIDE 0.9% 1,000 ML IV STA (07:22)
[2019-05-05] MEDS ORDERED: PANTOPRAZOLE 40 MG/10 ML VIAL IVP STA (07:35)
--- NOTE | 2019-05-05 07:41 | ED ---
GI Bleed HPI - General Source: patient, EMS, RN notes reviewed Mode of arrival: EMS Limitations: no limitations <Los Hargrove - Last Filed: 05/05/19 09:18> <Ladarius Clark - Last Filed: 05/05/19 09:57> - General Stated complaint: Nausea, vomiting Time Seen by Provider: 05/05/19 07:21 - History of Present Illness Initial comments: This a 38-year-old male presents emergency Department chief complaint of vomiting blood. Patient states that he is admitted especially 6 months ago for similar problems. Patient states that he was scheduled for an EGD today with Dr. Andrade to recheck his gastric ulcer. Patient states that she is concerned that there is issues as he had a recent drop in his hemoglobin. Patient denies any abdominal pain this time states been very nauseated throughout the night and has had multiple episodes of maroonish color and black colored emesis. Patient states that he cannot make it to his EGD this morning because of the symptoms. Patient denies any change in stool color states that it's always been very dark because he's been on iron. Patient denies any recent change in medications. Denies fevers or chills no chest pain or shortness breath ([place]) - Related Data Home Medications Medication Instructions Recorded Confirmed Ferrous Sulfate [Iron (65 MG 325 mg PO DAILY 07/20/18 05/05/19 Elemental)] Finasteride [Proscar] 5 mg PO DAILY 07/20/18 05/05/19 Multivitamins, Thera [Multivitamin 1 tab PO DAILY 07/20/18 05/05/19 (formulary)] Vitamin B Complex 1 cap PO DAILY 07/20/18 05/05/19 Albuterol Inhaler [Ventolin Hfa 2 puff INHALATION RT-Q4H PRN 10/05/18 05/05/19 Inhaler] Baclofen [Lioresal] 20 mg PO TID 10/05/18 05/05/19 Cetirizine HCl [Zyrtec] 10 mg PO DAILY 10/05/18 05/05/19 Pregabalin [Lyrica] 200 mg PO TID 10/05/18 05/05/19 Alfuzosin HCl [Alfuzosin HCl ER] 10 mg PO DAILY 05/05/19 05/05/19 Buprenorphine HCl/Naloxone HCl 1 tab SUBLINGUAL BID 05/05/19 05/05/19 [Zubsolv 5.7-1.4 mg Tablet Sl] Ergocalciferol [Vitamin D2] 50,000 unit PO Q7D 05/05/19 05/05/19 Montelukast [Singulair] 10 mg PO DAILY 05/05/19 05/05/19 Ondansetron Odt [Zofran Odt] 4 mg PO Q12HR PRN 05/05/19 05/05/19 Varenicline [Chantix Continuing 1 mg PO BID 05/05/19 05/05/19 Pack] buPROPion HCL [Wellbutrin XL] 300 mg PO DAILY 05/05/19 05/05/19 hydrOXYzine PAMOATE 50 mg PO DAILY PRN 05/05/19 05/05/19 Previous Rx's Medication Instructions Recorded Omeprazole 40 mg PO DAILY #60 capsule. 07/23/18 Allergies Allergy/AdvReac Type Severity Reaction Status Date / Time No Known Allergies Allergy Verified 05/05/19 07:58 Review of Systems ROS Other: All systems not noted in ROS Statement are negative. <[place] - Last Filed: 05/05/19 09:18> ROS Other: All systems not noted in ROS Statement are negative. <Ladarius Clark - Last Filed: 05/05/19 09:57> ROS Statement: Those systems with pertinent positive or pertinent negative responses have been documented in the HPI. Past Medical History Past Medical History: Asthma, GERD/Reflux, GI Bleed, Musculoskeletal Disorder, Seizure Disorder Additional Past Medical History / Comment(s): Anemia, bleeding ulcers, GI bleed in September, one time seizure @age of 13-nothing since History of Any Multi-Drug Resistant Organisms: None Reported Past Surgical History: Back Surgery Additional Past Surgical History / Comment(s): dental work, EGd's Past Anesthesia/Blood Transfusion Reactions: No Reported Reaction Smoking Status: Current every day smoker - Past Family History Mother Family Medical History: No Reported History Additional Family Medical History / Comment(s): Mother is healthy Father Family Medical History: Cancer Additional Family Medical History / Comment(s): Lung CA <Los Hargrove - Last Filed: 05/05/19 09:18> General Exam General appearance: alert, in no apparent distress Head exam: Present: atraumatic, normocephalic, normal inspection Eye exam: Present: normal appearance, PERRL, EOMI. Absent: scleral icterus, conjunctival injection, periorbital swelling Neck exam: Present: normal inspection. Absent: tenderness, meningismus, lymphadenopathy Respiratory exam: Present: normal lung sounds bilaterally. Absent: respiratory distress, wheezes, rales, rhonchi, stridor Cardiovascular Exam: Present: regular rate, normal rhythm, normal heart sounds. Absent: systolic murmur, diastolic murmur, rubs, gallop, clicks GI/Abdominal exam: Present: soft, normal bowel sounds. Absent: distended, tenderness, guarding, rebound, rigid Back exam: Absent: CVA tenderness (R), CVA tenderness (L) Neurological exam: Present: alert, oriented X3, CN II-XII intact Skin exam: Present: warm, dry, intact, normal color. Absent: rash <Los Hargrove - Last Filed: 05/05/19 09:18> Course <[place]rove - Last Filed: 05/05/19 09:18> <Ladarius Clark - Last Filed: 05/05/19 09:57> Vital Signs 05/05/19 05/05/19 05/05/19 07:22 08:30 09:00 Temperature 98.2 F Pulse Rate 99 101 H 107 H Respiratory 18 20 20 Rate Blood Pressure 114/92 109/73 121/82 O2 Sat by Pulse 100 97 99 Oximetry 05/05/19 09:30 Temperature Pulse Rate 104 H Respiratory 20 Rate Blood Pressure 119/78 O2 Sat by Pulse 99 Oximetry - Reevaluation(s) Reevaluation #1: 05/05/19 09:18 Patient filled the bottom of basin of hematemesis maroon to bright red with clots ([place]) Reevaluation #2: 05/05/19 09:56 PT supervision: I pursued a [id number] evaluation the patient does have evidence of upper GI bleed with a basin full of dark burgundy-colored clots. He has maintain his vital signs at this time his hemoglobin is reviewed. I did discuss case with Dr. Canales as well as Dr. Valencia. Patient be admitted to ICU also GI consultation (Ladarius Clark) Medical Decision Making - Lab Data Result diagrams: 05/05/19 07:42 05/05/19 07:42 <[place]rove - Last Filed: 05/05/19 09:18> - Lab Data Result diagrams: 05/05/19 07:42 05/05/19 07:42 <Ladarius Clark - Last Filed: 05/05/19 09:57> - Lab Data Lab Results 05/05/19 05/05/19 05/05/19 Range/Units 07:42 07:42 07:42 WBC 8.2 (3.8-10.6) k/uL RBC 3.99 L (4.30-5.90) m/uL Hgb 12.8 L (13.0-17.5) gm/dL Hct 38.7 L (39.0-53.0) % MCV 96.9 (80.0-100.0) fL MCH 32.0 (25.0-35.0) pg MCHC 33.0 (31.0-37.0) g/dL RDW 12.9 (11.5-15.5) % Plt Count 246 (150-450) k/uL Neutrophils % 71 % Lymphocytes % 22 % Monocytes % 3 % Eosinophils % 1 % Basophils % 1 % Neutrophils # 5.8 (1.3-7.7) k/uL Lymphocytes # 1.8 (1.0-4.8) k/uL Monocytes # 0.3 (0-1.0) k/uL Eosinophils # 0.1 (0-0.7) k/uL Basophils # 0.1 (0-0.2) k/uL PT 10.1 (9.0-12.0) sec INR 0.9 (<1.2) APTT 22.7 (22.0-30.0) sec Sodium 141 (137-145) mmol/L Potassium 4.6 (3.5-5.1) mmol/L Chloride 102 (98-107) mmol/L Carbon Dioxide 28 (22-30) mmol/L Anion Gap 11 mmol/L BUN 35 H (9-20) mg/dL Creatinine 0.86 (0.66-1.25) mg/dL Est GFR (CKD-EPI)AfAm >90 (>60 ml/min/1.73 sqM) Est GFR (CKD-EPI)NonAf >90 (>60 ml/min/1.73 sqM) Glucose 130 H (74-99) mg/dL Calcium 9.6 (8.4-10.2) mg/dL Total Bilirubin 0.4 (0.2-1.3) mg/dL AST 20 (17-59) U/L ALT 26 (21-72) U/L Alkaline Phosphatase 65 (38-126) U/L Total Protein 7.0 (6.3-8.2) g/dL Albumin 4.5 (3.5-5.0) g/dL Amylase 47 (30-110) U/L Lipase 63 (23-300) U/L Urine Color Urine Appearance (Clear) Urine pH (5.0-8.0) Ur Specific Richardson (1.001-1.035) Urine Protein (Negative) Urine Glucose (UA) (Negative) Urine Ketones (Negative) Urine Blood (Negative) Urine Nitrite (Negative) Urine Bilirubin (Negative) Urine Urobilinogen (<2.0) mg/dL Ur Leukocyte Esterase (Negative) Gastric Occult Blood (Negative) 05/05/19 05/05/19 Range/Units 08:15 09:00 WBC (3.8-10.6) k/uL RBC (4.30-5.90) m/uL Hgb (13.0-17.5) gm/dL Hct (39.0-53.0) % MCV (80.0-100.0) fL MCH (25.0-35.0) pg MCHC (31.0-37.0) g/dL RDW (11.5-15.5) % Plt Count (150-450) k/uL Neutrophils % % Lymphocytes % % Monocytes % % Eosinophils % % Basophils % % Neutrophils # (1.3-7.7) k/uL Lymphocytes # (1.0-4.8) k/uL Monocytes # (0-1.0) k/uL Eosinophils # (0-0.7) k/uL Basophils # (0-0.2) k/uL PT (9.0-12.0) sec INR (<1.2) APTT (22.0-30.0) sec Sodium (137-145) mmol/L Potassium (3.5-5.1) mmol/L Chloride (98-107) mmol/L Carbon Dioxide (22-30) mmol/L Anion Gap mmol/L BUN (9-20) mg/dL Creatinine (0.66-1.25) mg/dL Est GFR (CKD-EPI)AfAm (>60 ml/min/1.73 sqM) Est GFR (CKD-EPI)NonAf (>60 ml/min/1.73 sqM) Glucose (74-99) mg/dL Calcium (8.4-10.2) mg/dL Total Bilirubin (0.2-1.3) mg/dL AST (17-59) U/L ALT (21-72) U/L Alkaline Phosphatase (38-126) U/L Total Protein (6.3-8.2) g/dL Albumin (3.5-5.0) g/dL Amylase (30-110) U/L Lipase (23-300) U/L Urine Color Yellow Urine Appearance Clear (Clear) Urine pH 6.0 (5.0-8.0) Ur Specific Richardson 1.032 (1.001-1.035) Urine Protein Trace H (Negative) Urine Glucose (UA) Negative (Negative) Urine Ketones 1+ H (Negative) Urine Blood Negative (Negative) Urine Nitrite Negative (Negative) Urine Bilirubin Negative (Negative) Urine Urobilinogen 2.0 (<2.0) mg/dL Ur Leukocyte Esterase Negative (Negative) Gastric Occult Blood Positive (Negative) Critical Care Time Critical Care Time: Yes Total Critical Care Time: 35 <[place] - Last Filed: 05/05/19 09:18> Critical Care Time: Total 35 minutes of critical care time were used to initially evaluated patient, reviewed past medical history, review medical records and vitals. Labs including CBC, CMP, PT/INR were ordered. Initial dose of Protonix 80 mg were given. Patient was given antiemetics by EMS. Patient not complaining of nausea this time he did have episode of hematemesis in emergency department. Patient case discussed with admitting physician will be admitted to ICU with GI evaluation. ([place]arg[place]) Disposition <[place]rove - Last Filed: 05/05/19 09:18> <Ladarius Clark - Last Filed: 05/05/19 09:57> Clinical Impression: Anemia, Peptic ulcer disease, Upper GI bleed, Hematemesis Disposition: ADMITTED IP TO THIS HOSP Condition: Critical
[2019-05-05 08:07] LABS: Basophils # (A) 0.1 k/uL (0-0.2); Basophils % (A) 1 %; Eosinophils # (A) 0.1 k/uL (0-0.7); Eosinophils % (A) 1 %; HCT 38.7 % (39.0-53.0); HGB 12.8 gm/dL (13.0-17.5); Lymphocytes # (A) 1.8 k/uL (1.0-4.8); Lymphocytes % (A) 22 %; MCV 96.9 fL (80.0-100.0); Mean Platelet Volume 9.2; Monocytes # (A) 0.3 k/uL (0-1.0); Monocytes % (A) 3 %; Neutrophils # (A) 5.8 k/uL (1.3-7.7); Neutrophils % (A) 71 %; Platelet Count 246 k/uL (150-450); RBC 3.99 m/uL (4.30-5.90); RDW 12.9 % (11.5-15.5); WBC 8.2 k/uL (3.8-10.6)
[2019-05-05 08:16] LABS: ALT 26 U/L (21-72); AST 20 U/L (17-59); African American GFR (CKD) >90 (>60 ml/min/1.73 sqM); Albumin 4.5 g/dL (3.5-5.0); Alkaline Phosphatase 65 U/L (38-126); Amylase 47 U/L (30-110); Anion Gap 11 mmol/L; Blood Urea Nitrogen 35 mg/dL (9-20); Calcium 9.6 mg/dL (8.4-10.2); Carbon Dioxide 28 mmol/L (22-30); Chloride 102 mmol/L (98-107); Glucose 130 mg/dL (74-99); Potassium 4.6 mmol/L (3.5-5.1); Sodium 141 mmol/L (137-145); Total Bilirubin 0.4 mg/dL (0.2-1.3)
[2019-05-05 08:19] LABS: INR 0.9 (<1.2); Partial Thromboplastin Time 22.7 sec (22.0-30.0); Prothrombin Time 10.1 sec (9.0-12.0)
[2019-05-05 08:30] LABS: Appearance,Urine Clear (Clear); Bilirubin,Urine Negative (Negative); Blood,Urine Negative (Negative); Color,Urine Yellow; Glucose,Urine (UA) Negative (Negative); Ketones,Urine 1+ (Negative); Leukocyte Esterase,Urine Negative (Negative); Nitrite,Urine Negative (Negative); Protein,Urine Trace (Negative); Specific Gravity,Urine 1.032 (1.001-1.035)
[2019-05-05] MEDS: SODIUM CHLORIDE 0.9% 1,000 ML IV SCH ×2 (09:45→20:13)
[2019-05-05 10:28] LABS: Glucose,Whole Blood 123 mg/dL (75-99)
--- NOTE | 2019-05-05 10:44 | P.CNPUL ---
History of Present Illness Consult date: 05/05/19 Chief complaint: Upper GI bleed History of present illness: 38-year-old male patient came into ED with chief complaint of hematemesis. It was estimated that the patient rule out 300 mL of blood. No abdominal pain. He was quite nauseated throughout the night yesterday and he had multiple episodes of maroon dark color emesis. He was getting progressively more weak and for that reason he end up coming to the hospital. In the ED, the patient was hemodynamically stable. Hemoglobin was at 12.8. The patient was brought into the intensive care unit. The patient had similar admission back in September 2018. At time the patient came in with significant upper GI bleed and anemia. He had been taken also that the oximeter medication for back pain for several months. 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 The patient was asked to stop the nonsteroidal anti-inflammatory medication. The patient was discharged home on a combination of the echo and baclofen for back pain. He was also given Carafate 1 g 3 times a day. He denies alcohol intake. His correlation profile is within normal limits. LFTs are also within normal limits. Review of Systems Constitutional: Denies chills, Denies fever Eyes: denies blurred vision, denies pain Ears, nose, mouth and throat: Denies headache, Denies sore throat Cardiovascular: Denies chest pain, Denies shortness of breath Respiratory: Denies cough Gastrointestinal: Reports hematemesis, Reports melena, Denies abdominal pain, Denies diarrhea, Denies nausea, Denies vomiting Musculoskeletal: Denies myalgias Integumentary: Denies pruritus, Denies rash Neurological: Denies numbness, Denies weakness Psychiatric: Denies anxiety, Denies depression Endocrine: Denies fatigue, Denies weight change Past Medical History Past Medical History: Asthma, GERD/Reflux, GI Bleed, Prostate Disorder, Seizure Disorder Additional Past Medical History / Comment(s): Anemia, upper GI bleed, bleeding gastric ulcers, duodenitis, antral gastritis, hematuria, BPH, chronic cervical and lumbar back pain which radiates into bilateral legs, one time seizure @age of 13-nothing since History of Any Multi-Drug Resistant Organisms: None Reported Past Surgical History: Back Surgery Additional Past Surgical History / Comment(s): EGDs, colonoscopy, lumbar back surgery, pain clinic procedures, dental work Past Anesthesia/Blood Transfusion Reactions: No Reported Reaction Smoking Status: Current every day smoker - Past Family History Mother Family Medical History: No Reported History Additional Family Medical History / Comment(s): Mother is healthy Father Family Medical History: Cancer Additional Family Medical History / Comment(s): Lung CA Medications and Allergies Home Medications Medication Instructions Recorded Confirmed Type Ferrous Sulfate [Iron (65 MG 325 mg PO DAILY 07/20/18 05/05/19 History Elemental)] Finasteride [Proscar] 5 mg PO DAILY 07/20/18 05/05/19 History Multivitamins, Thera [Multivitamin 1 tab PO DAILY 07/20/18 05/05/19 History (formulary)] Vitamin B Complex 1 cap PO DAILY 07/20/18 05/05/19 History Omeprazole 40 mg PO DAILY #60 capsule. 07/23/18 05/05/19 Rx Albuterol Inhaler [Ventolin Hfa 2 puff INHALATION RT-Q4H PRN 10/05/18 05/05/19 History Inhaler] Baclofen [Lioresal] 20 mg PO TID 10/05/18 05/05/19 History Cetirizine HCl [Zyrtec] 10 mg PO DAILY 10/05/18 05/05/19 History Pregabalin [Lyrica] 200 mg PO TID 10/05/18 05/05/19 History Alfuzosin HCl [Alfuzosin HCl ER] 10 mg PO DAILY 05/05/19 05/05/19 History Buprenorphine HCl/Naloxone HCl 1 tab SUBLINGUAL BID 05/05/19 05/05/19 History [Zubsolv 5.7-1.4 mg Tablet Sl] Ergocalciferol [Vitamin D2] 50,000 unit PO Q7D 05/05/19 05/05/19 History Montelukast [Singulair] 10 mg PO DAILY 05/05/19 05/05/19 History Ondansetron Odt [Zofran Odt] 4 mg PO Q12HR PRN 05/05/19 05/05/19 History Varenicline [Chantix Continuing 1 mg PO BID 05/05/19 05/05/19 History Pack] buPROPion HCL [Wellbutrin XL] 300 mg PO DAILY 05/05/19 05/05/19 History hydrOXYzine PAMOATE 50 mg PO DAILY PRN 05/05/19 05/05/19 History Allergies Allergy/AdvReac Type Severity Reaction Status Date / Time No Known Allergies Allergy Verified 05/05/19 07:58 Physical Exam Vitals: Vital Signs Temp Pulse Resp BP Pulse Ox 05/05/19 10:04 98.2 F 103 H 20 120/83 99 05/05/19 09:30 104 H 20 119/78 99 05/05/19 09:00 107 H 20 121/82 99 05/05/19 08:30 101 H 20 109/73 97 05/05/19 07:45 101 H 20 121/80 100 05/05/19 07:22 98.2 F 99 18 114/92 100 Intake and Output 05/04/19 05/05/19 05/05/19 22:59 06:59 14:59 Output Total 300 Balance -300 Output: Emesis 300 Other: Weight 83.915 kg GENERAL EXAM: Alert, pleasant, nonacute distress HEAD: Normocephalic/atraumatic. EYES: Normal reaction of pupils, equal size. Conjunctiva pink, sclera white. NOSE: Clear with pink turbinates. THROAT: No erythema or exudates. NECK: No masses, no JVD, no thyroid enlargement, no adenopathy. CHEST: No chest wall deformity. Symmetrical expansion. LUNGS: Equal air entry with no crackles, wheeze, rhonchi or dullness. CVS: Regular rate and rhythm, normal S1 and S2, no gallops, no murmurs, no rubs ABDOMEN: Soft, nontender. No hepatosplenomegaly, normal bowel sounds, no guarding or rigidity. EXTREMITIES: No clubbing, no edema, no cyanosis, 2+ pulses and upper and lower extremities. MUSCULOSKELETAL: Muscle strength and tone normal. SPINE: No scoliosis or deformity SKIN: No rashes CENTRAL NERVOUS SYSTEM: Alert and oriented -3. No focal deficits, tone is normal in all 4 extremities. PSYCHIATRIC: Alert and oriented -3. Appropriate affect. Intact judgment and i nsight. Results - Laboratory Findings CBC and BMP: 05/05/19 07:42 05/05/19 07:42 PT/INR, D-dimer PT 10.1 sec (9.0-12.0) 05/05/19 07:42 INR 0.9 (<1.2) 05/05/19 07:42 Abnormal lab findings: Abnormal Labs 05/05/19 05/05/19 05/05/19 07:42 07:42 08:15 RBC 3.99 L Hgb 12.8 L Hct 38.7 L BUN 35 H Glucose 130 H Urine Protein Trace H Urine Ketones 1+ H Assessment and Plan Plan: #1. Acute blood loss anemia, secondary to GI bleeding. This is a recurrent event. The patient underwent EGD back in September 2019 and the patient was found to have a 1 cm superficial ulceration with a visible vessel within the duodenal sweep and Endo Clip placement was done. There was also duodenal stricture involving the second part of the duodenum and superficial ulceration and 1 cm clean base antral ulcer #2. Chronic back pain, with previous history of surgery #3. Chronic nicotine dependence #4. BPH Plan: admit patient ICU for monitoring. Supportive care. Monitor hemoglobin chest she was initiated. IV Protonix. Watch for any signs of GI bleed. GI consultation. We'll continue to follow. The patient will be undergoing an EGD today regarding his ongoing GI bleed, meanwhile, he will Be kept in ICU nothing by mouth for now.
[2019-05-05] MEDS ORDERED: IV FLUID CONTINUATION 1,000 ML IV ONE (12:14)
[2019-05-05] MEDS ORDERED: fentaNYL (PF) 50 MCG/ML 2 ML AMP ONE (12:18)
[2019-05-05] MEDS ORDERED: LIDOCAINE 1% INJ 10MG/ML (20 ML MDV) ONE (12:18)
[2019-05-05] MEDS ORDERED: PROPOFOL 10 MG/ML 20 ML VIAL IV ONE (12:18)
[2019-05-05] MEDS ORDERED: EPINEPHrine 10 ML SYRINGE (0.1 MG/ML) INTRAOSSEO ONE (12:32)
--- NOTE | 2019-05-05 12:38 | P.PCN ---
Date of Procedure: 05/05/19 Procedure(s) Performed: BRIEF HISTORY: Patient is a 38-year-old, pleasant, male, admitted to the intensive care unit with multiple episodes of coffee-ground emesis that started last night. Hemoglobin was 12.8 g/dL. He was admitted hospital in September 2018 with acute GI bleed an upper endoscopy revealed antral ulcers duodenal ulcers with duodenal stricture. Since then he has been off NSAIDs and has been on Protonix 40 mg twice daily.. PROCEDURE PERFORMED: Esophagogastroduodenoscopy with injection epinephrine. PREOPERATIVE DIAGNOSIS: Upper GI bleed. IV sedation per anesthesia. PROCEDURE: After informed consent was obtained, the patient was brought into the endoscopy unit. IV sedation was administered by Anesthesia under continuous monitoring. Initially the Olympus GIF-140 video endoscope was inserted into the mouth. Esophagus intubated without any difficulty. It was gradually advanced into the stomach and duodenum and carefully examined. T in the bulb of the duodenum along the duodenal sweep there was a large adherent clot identified and was able to suction out some of the clot. Despite aggressive gradually irrigation I was not able to remove the rest of the clot. However part of the base of the ulcer was visualized and I proceeded with injection epinephrine using sclerotherapy needle and total of 10 mL was injected around the base of the ulcer. Could not perform any other therapeutic intervention as a could not be removed completely. The scope at this time was withdrawn to the stomach, adequately insufflated with air, and upon careful examination, mucosa of the antrum, body, cardia and the fundus appeared normal. The scope was then withdrawn into the esophagus. The GE junction was located at 39 cm from the incisors. small to moderate size hiatal hernia noted. The esophagus appeared normal. There were no erosions or ulcerations seen and the patient tolerated the procedure well. IMPRESSION: 1. Duodenal ulcer along the duodenal sweep with a large adherent clot that could not be removed. Status post injection epinephrine around the base of the clot.. 2. Small to moderate size hiatal hernia. RECOMMENDATIONS: The findings of this examination were discussed with the patNG tube to suction.Continue on Protonix 40 mg twice daily. CBC every 6 hours.. r epeat EGD in 24-48 hours based on his symptoms.
--- NOTE | 2019-05-05 13:13 | CONS ---
CONSULTATION DATE OF SERVICE: 05/05/2019 REASON FOR CONSULTATION: Upper GI bleed. HISTORY OF PRESENT ILLNESS: The patient is a 38-year-old white male who came to emergency room last night complaining of multiple episodes of coffee-ground emesis. He had at least 10 episodes. He came into the emergency room this morning and was admitted to the intensive care unit. Initial hemoglobin 12.8 g/dL. The patient denies any abdominal pain. He denies any black tarry stools. He had an upper endoscopy done in September of 2018 for acute GI bleed and was noted to have small antral ulcers and a 2 cm ulcer in along the duodenal sweep, which was actively bleeding. An Endoclip was placed at the time. He subsequently did well and remained on Protonix 40 mg twice daily since then. He denies any recent NSAID use. PAST MEDICAL HISTORY: Significant for GI bleed, peptic ulcer disease, seizure disorder, GERD. PAST SURGICAL HISTORY: Back surgery, EGD, colonoscopy last year. MEDICATIONS AT HOME: Iron tablets, Lyrica, Zyrtec, , Singulair, vitamin D, Zofran, Chantix, Wellbutrin, omeprazole, multivitamins. ALLERGIES: None. SOCIAL HISTORY: No smoking. No alcohol use. FAMILY HISTORY: Unremarkable. REVIEW OF SYSTEMS: CARDIOPULMONARY: No chest pain or shortness of breath. GENITOURINARY: No dysuria or hematuria. MUSCULOSKELETAL: Unremarkable. SKIN: Unremarkable. ENDOCRINE: Unremarkable. PSYCHIATRIC: Unremarkable. NEUROLOGY: Unremarkable. ENT/VISION: Unremarkable. CONSTITUTIONAL: No recent weight loss. No fever, chills or night sweats. PHYSICAL EXAMINATION: On physical examination, appears comfortable in no apparent distress. Vital signs are stable. Blood pressure 112/82, pulse rate 85 per minute. Afebrile. HEENT examination unremarkable. Conjunctivae pink. Sclerae anicteric. Oral cavity no lesions. NECK: No JVD or lymph node enlargement. CHEST: Clear to auscultation. HEART: Regular rate and rhythm. ABDOMEN: Soft. Bowel sounds are positive. No organomegaly. EXTREMITIES: No pedal edema. SKIN: No rashes. NEURO: He is alert and oriented x3. No focal deficits. LABS: Labs done at the time of admission to the hospital: Hemoglobin 12.8, WBC 8.2, platelets are normal. BUN 35, creatinine 0.8. Occult blood in the gastric positive. IMPRESSION: Acute upper gastrointestinal bleed, most likely related to recurrent peptic ulcer disease. EGD in September of 2018 showed a duodenal bulbar ulcer with active bleeding and Endoclip was placed. Now presents with multiple episodes of coffee-ground emesis for the last 24-hour period. Hemoglobin stable at 12.8 g/dL. RECOMMENDATIONS: 1. IV Protonix 40 mg q.12. 2. N.p.o. 3. EGD today. Discussed with the patient risk, benefits and complications and he is agreeable to it. Thank you for this consultation. MMODL / IJN: [id number] /
--- NOTE | 2019-05-05 14:13 | XR ---
EXAMINATION TYPE: XR chest 1V DATE OF EXAM: 05/05/2019 CLINICAL HISTORY: NG tube placement. TECHNIQUE: Single AP portable upright view of the chest is obtained. COMPARISON: Chest x-ray from January 11, 2016. FINDINGS: New nasogastric tube coiled in the gastric lumen below diaphragm. Lungs remain clear witho ut pleural effusion or pneumothorax. Cardiac silhouette size remains within normal limits. Overlying EKG leads are now present. Osseous structures are intact. IMPRESSION: New nasogastric tube is satisfactory in position.
[2019-05-05 14:50] LABS: Basophils # (A) 0.1 k/uL (0-0.2); Basophils % (A) 1 %; Eosinophils # (A) 0.1 k/uL (0-0.7); Eosinophils % (A) 1 %; HCT 31.6 % (39.0-53.0); HGB 10.9 gm/dL (13.0-17.5); Lymphocytes # (A) 1.6 k/uL (1.0-4.8); Lymphocytes % (A) 19 %; MCH 33.7 pg (25.0-35.0); MCHC 34.5 g/dL (31.0-37.0); MCV 97.8 fL (80.0-100.0); Mean Platelet Volume 8.9; Monocytes # (A) 0.4 k/uL (0-1.0); Monocytes % (A) 5 %; Neutrophils # (A) 6.1 k/uL (1.3-7.7); Neutrophils % (A) 73 %; Platelet Count 188 k/uL (150-450); RBC 3.23 m/uL (4.30-5.90); RDW 13.3 % (11.5-15.5); WBC 8.4 k/uL (3.8-10.6)
[2019-05-05] MEDS: PANTOPRAZOLE 40 MG/10 ML VIAL IV SCH (20:18)
[2019-05-05 20:29] LABS: Basophils # (A) 0.1 k/uL (0-0.2); Basophils % (A) 1 %; Eosinophils # (A) 0.1 k/uL (0-0.7); Eosinophils % (A) 1 %; HCT 30.8 % (39.0-53.0); HGB 10.4 gm/dL (13.0-17.5); Lymphocytes # (A) 1.9 k/uL (1.0-4.8); Lymphocytes % (A) 22 %; MCH 32.5 pg (25.0-35.0); MCHC 33.6 g/dL (31.0-37.0); MCV 96.9 fL (80.0-100.0); Mean Platelet Volume 9.2; Monocytes # (A) 0.4 k/uL (0-1.0); Monocytes % (A) 4 %; Neutrophils # (A) 6.3 k/uL (1.3-7.7); Neutrophils % (A) 71 %; Platelet Count 200 k/uL (150-450); RBC 3.18 m/uL (4.30-5.90); RDW 12.8 % (11.5-15.5); WBC 8.8 k/uL (3.8-10.6)
[2019-05-06 05:18] LABS: Basophils # (A) 0.1 k/uL (0-0.2); Basophils % (A) 1 %; Eosinophils # (A) 0.1 k/uL (0-0.7); Eosinophils % (A) 1 %; HCT 29.4 % (39.0-53.0); Lymphocytes # (A) 1.9 k/uL (1.0-4.8); Lymphocytes % (A) 24 %; MCH 33.5 pg (25.0-35.0); MCHC 34.2 g/dL (31.0-37.0); Mean Platelet Volume 9.1; Monocytes # (A) 0.3 k/uL (0-1.0); Monocytes % (A) 4 %; Neutrophils # (A) 5.5 k/uL (1.3-7.7); Neutrophils % (A) 69 %; Platelet Count 203 k/uL (150-450); RDW 13.7 % (11.5-15.5)
[2019-05-06 06:11] LABS: African American GFR (CKD) >90 (>60 ml/min/1.73 sqM); Anion Gap 6 mmol/L; Blood Urea Nitrogen 28 mg/dL (9-20); Calcium 8.4 mg/dL (8.4-10.2); Carbon Dioxide 30 mmol/L (22-30); Chloride 102 mmol/L (98-107); Glucose 106 mg/dL (74-99); Potassium 3.7 mmol/L (3.5-5.1); Sodium 138 mmol/L (137-145)
[2019-05-06] MEDS ORDERED: Potassium Replacement Protocol 1 EACH MISC MISCELLANE PRN (06:33)
[2019-05-06] MEDS: SODIUM CHLORIDE 0.9% 1,000 ML IV SCH ×2 (06:42→06:53)
[2019-05-06] MEDS: POTASSIUM CHLORIDE 10 MEQ in WATER FOR INJECTION 1 100ML.BAG IVPB SCH ×2 (06:55→08:51)
[2019-05-06] MEDS: PANTOPRAZOLE 40 MG/10 ML VIAL IV SCH ×2 (08:49→21:33)
[2019-05-06] MEDS ORDERED: SODIUM CHLORIDE 0.9% 500 ML 500 ML IV ONE (09:08)
[2019-05-06] MEDS ORDERED: ACETAMINOPHEN IV (For NPO) 1,000 MG in EMPTY BAG 1 BAG IVPB PRN (09:09)
--- NOTE | 2019-05-06 10:25 | P.PN ---
Subjective Progress Note Date: 05/06/19 Principal diagnosis: Acute blood loss anemia, secondary to GI bleeding, duodenal ulcer 38-year-old male patient came into ED with chief complaint of hematemesis. It was estimated that the patient rule out 300 mL of blood. No abdominal pain. He was quite nauseated throughout the night yesterday and he had multiple episodes of maroon dark color emesis. He was getting progressively more weak and for that reason he end up coming to the hospital. In the ED, the patient was h emodynamically stable. Hemoglobin was at 12.8. The patient was brought into the intensive care unit. The patient had similar admission back in September 2018. At time the patient came in with significant upper GI bleed and anemia. He had been taken also that the oximeter medication for back pain for several months. 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 The patient was asked to stop the nonsteroidal anti-inflammatory medication. The patient was discharged home on a combination of the echo and baclofen for back pain. He was also given Carafate 1 g 3 times a day. He denies alcohol intake. His correlation profile is within normal limits. LFTs are also within normal limits. On 05/06/2019 patient seen in follow-up in the intensive care unit, he underwent EGD yesterday and was found to have a large duodenal ulcer with a clot which could not be removed, it was injected with epinephrine. NG tube was inserted, and this morning the output NG tube is nonbloody, greenish colored, there has been a total of 800 mL of gastric drainage from the NG tube in the last 24 hours. No black tarry stools, no hematochezia overnight, hemodynamically patient is stable, today's hemoglobin is 10.0, and patient has not required a blood transfusion this admission. Sinus rhythm on the monitor. Room air pulse ox is 98%, blood pressure is 112/81, patient denies any lightheadedness or dizziness, chest pain or shortness of breath. She is ambulating about the room, tolerating activity well. Has any abdominal pain, continues on Protonix. Objective - Vital Signs Vital signs: Vital Signs Temp 97.7 F 07/25/19 04:00 Pulse 86 05/06/19 10:00 Resp 15 05/06/19 10:00 BP 113/75 05/06/19 09:00 Pulse Ox 96 05/06/19 10:00 Intake & Output 05/05/19 05/06/19 05/06/19 18:59 06:59 18:59 Intake Total 1400 1200 650 Output Total 900 1600 0 Balance 500 -400 650 Weight 83.915 kg 82 kg Intake: IV 1400 1200 400 Potassium Chloride 10 meq 200 In Water For Injection 1 100ml.bag @ 100 mls/hr IVPB Q1H [facility] Rx#: [id number] Sodium Chloride 0.9% 1, 700 1200 200 000 ml @ 100 mls/hr IV . Q10H [facility] Rx#:[id number] Intake, IV Titration 250 Amount Sodium Chloride 0.9% 500 250 ml 500 ml @ 250 mls/hr IV .Q2H [facility] Rx#:[id number] Output: Gastric Drainage 800 Urine 600 800 0 Emesis 300 Other: Voiding Method Toilet Toilet - Exam GENERAL EXAM: Alert, pleasant, 38-year-old white male, with the NG tube in place to low intermittent suction, with the small amount of greenish output in the drainage container. comfortable in no apparent distress. HEAD: Normocephalic/atraumatic. EYES: Normal reaction of pupils, equal size. Conjunctiva pink, sclera white. NOSE: Clear with pink turbinates. THROAT: No erythema or exudates. NECK: No masses, no JVD, no thyroid enlargement, no adenopathy. CHEST: No chest wall deformity. Symmetrical expansion. LUNGS: Equal air entry with no crackles, wheeze, rhonchi or dullness. CVS: Regular rate and rhythm, normal S1 and S2, no gallops, no murmurs, no rubs ABDOMEN: Soft, nontender. No hepatosplenomegaly, normal bowel sounds, no guarding or rigidity. EXTREMITIES: No clubbing, no edema, no cyanosis, 2+ pulses and upper and lower extremities. MUSCULOSKELETAL: Muscle strength and tone normal. SPINE: No scoliosis or deformity SKIN: No rashes CENTRAL NERVOUS SYSTEM: Alert and oriented -3. No focal deficits, tone is normal in all 4 extremities. PSYCHIATRIC: Alert and oriented -3. Appropriate affect. Intact judgment and insight. - Labs CBC & Chem 7: 07/25/19 04:16 05/06/19 04:16 Labs: Abnormal Lab Results - Last 24 Hours (Table) 05/05/19 05/05/19 05/05/19 Range/Units 10:17 14:00 20:13 RBC 3.23 L 3.18 L (4.30-5.90) m/uL Hgb 10.9 L 10.4 L (13.0-17.5) gm/dL Hct 31.6 L 30.8 L (39.0-53.0) % BUN (9-20) mg/dL Glucose (74-99) mg/dL POC Glucose (mg/dL) 123 H (75-99) mg/dL 05/06/19 05/06/19 Range/Units 04:16 04:16 RBC 3.00 L (4.30-5.90) m/uL Hgb 10.0 L (13.0-17.5) gm/dL Hct 29.4 L (39.0-53.0) % BUN 28 H (9-20) mg/dL Glucose 106 H (74-99) mg/dL POC Glucose (mg/dL) (75-99) mg/dL Assessment and Plan Plan: Assessment: #1. Acute blood loss anemia, secondary to GI bleeding. This is a recurrent event. The patient underwent EGD back in September 2019 and the patient was found to have a 1 cm superficial ulceration with a visible vessel within the duodenal sweep and Endo Clip placement was done. There was also duodenal stricture involving the second part of the duodenum and superficial ulceration and 1 cm clean base antral ulcer. He underwent EGD yesterday 05/05/2019 and was found to have a large duodenal ulcer with a clot on top of it which could not be removed, status post epinephrine injections #2. Chronic back pain, with previous history of surgery #3. Chronic nicotine dependence #4. BPH Plan: Patient is hemodynamically stable, output from the NG tube is nonbloody. No c omplaint of shortness of breath or chest pain, no abdominal pain. We'll remove the NG tube, will check with the GI service whether the patient can be started on any diet yet. Patient is on PPI therapy, continue serial CBCs. From pulmonary/critical care perspective patient is stable to transfer out of the intensive care unit to general medical floor I performed a history & physical examination of the patient and discussed their management with my nurse practitioner, Fariha Jamison. I reviewed the nurse practitioner's note and agree with the documented findings and plan of care. Lung sounds are positive for clear breath sounds. The findings and the impression was discussed with the patient. I attest to the documentation by the nurse practitioner. Time with Patient: Less than 30
[2019-05-06] MEDS: ZUBSOLV SUBLINGUAL SCH ×2 (12:20→21:34)
[2019-05-06] MEDS ORDERED: ALBUTEROL NEBULIZED 2.5 MG/3 ML INHALATION PRN (13:36)
[2019-05-06] MEDS ORDERED: hydrOXYzine PAMOATE 25 MG CAP PO PRN (13:36)
[2019-05-06] MEDS: PREGABALIN 100 MG CAP PO SCH ×2 (15:51→21:33)
[2019-05-06] MEDS: BACLOFEN 10 MG TAB PO SCH ×2 (15:51→21:33)
[2019-05-06] MEDS ORDERED: BUPRENORPHINE HCL SUBLINGUAL SCH (21:00)
[2019-05-06] MEDS ORDERED: NALOXONE HCL SUBLINGUAL SCH (21:00)
[2019-05-06] MEDS ORDERED: [UNRECOGNIZED DRUG - OTHER] SUBLINGUAL SCH (21:00)
--- NOTE | 2019-05-06 21:36 | P.PN ---
Subjective Progress Note Date: 05/06/19 Principal diagnosis: GI bleed, anemia of acute blood loss, duodenal ulcer Patient seen lying in bed. No further signs or symptoms of GI bleeding. Hemoglobin stable today. He has tolerated a liquid diet. No abdominal pain reported. Objective - Vital Signs Vital signs: Vital Signs Temp 97.9 F 05/06/19 16:00 Pulse 90 05/06/19 16:00 Resp 20 05/06/19 16:00 BP 138/93 05/06/19 16:00 Pulse Ox 98 05/06/19 19:05 Intake & Output 05/06/19 05/06/19 05/07/19 06:59 18:59 06:59 Intake Total 1200 1450 300 Output Total 1600 300 Balance -400 1150 300 Weight 82 kg Intake: IV 1200 1100 300 Potassium Chloride 10 meq 200 In Water For Injection 1 100ml.bag @ 100 mls/hr IVPB Q1H [facility] Rx#: [id number] Sodium Chloride 0.9% 1, 1200 900 300 000 ml @ 100 mls/hr IV . Q10H [facility] Rx#:[id number] Intake, IV Titration 350 Amount ACETAMINOPHEN IV (For NPO 100 ) 1,000 mg In Empty Bag 1 bag @ 400 mls/hr IVPB Q6HR [facility] Rx#:[id number] Sodium Chloride 0.9% 500 250 ml 500 ml @ 250 mls/hr IV .Q2H [facility] Rx#:[id number] Output: Gastric Drainage 800 Urine 800 300 Other: Voiding Method Toilet Toilet # Voids 1 - Exam On physical examination, patient appears comfortable in no apparent distress. HEAD: Normocephalic, atraumatic. EYES: No scleral icterus. No conjunctival injection. MOUTH: No lesions, tongue midline. NECK: Trachea midline, no gross abnormalities. CHEST: Clear to auscultation with no wheezing or rhonchi appreciated. HEART: Regular rate and rhythm. ABDOMEN: Soft. Bowel sounds are positive. No organomegaly. No guarding or rigidity. EXTREMITIES: No pedal edema. SKIN: No rashes, no jaundice. NEUROLOGIC: Alert and oriented x3. No focal deficits. - Labs CBC & Chem 7: 05/06/19 04:16 05/06/19 04:16 Labs: Abnormal Lab Results - Last 24 Hours (Table) 05/06/19 05/06/19 Range/Units 04:16 04:16 RBC 3.00 L (4.30-5.90) m/uL Hgb 10.0 L (13.0-17.5) gm/dL Hct 29.4 L (39.0-53.0) % BUN 28 H (9-20) mg/dL Glucose 106 H (74-99) mg/dL Assessment and Plan (1) Upper GI bleed Narrative/Plan: 38-year-old male presenting with hematemesis and anemia of acute blood loss. Previously the patient had been hospitalized in September 2018 with acute GI bleed secondary to antral ulcers and duodenal ulcers with duodenal stricture n oted. Patient was taken for endoscopy with finding of a large ulcer in the duodenal sweep. Doing well with stable hemoglobin and no signs or symptoms of GI bleeding. Current Visit: Yes Status: Acute Code(s): K92.2 - GASTROINTESTINAL HEMORRHAGE, UNSPECIFIED SNOMED Code(s): 67523673 (2) Anemia associated with acute blood loss Current Visit: Yes Status: Acute Code(s): D62 - ACUTE POSTHEMORRHAGIC ANEMIA SNOMED Code(s): 830455617 Plan: Supportive care Clear liquid diet We'll make patient nothing by mouth after midnight, and if any signs or symptoms of GI bleeding develop or patient has large fall in hemoglobin will take for repeat upper endoscopy, otherwise patient diet can be advanced and if he remains stable okay for discharge on Protonix 40 mg twice daily with follow-up in the outpatient setting Continue Protonix twice daily Continue to monitor hemoglobin and hematocrit and transfuse as needed Avoid NSAID use Thank you for allowing us to participate in the care of the patient, we will continue to follow
[2019-05-06] MEDS: VARENICLINE 1 MG TAB PO SCH (22:52)
[2019-05-07] MEDS: SODIUM CHLORIDE 0.9% 1,000 ML IV SCH ×2 (01:56→08:23)
[2019-05-07] MEDS: PANTOPRAZOLE 40 MG/10 ML VIAL IV SCH ×2 (08:16→21:19)
[2019-05-07] MEDS: MULTIVITAMINS, THERA 1 EACH TAB PO SCH (08:17)
[2019-05-07] MEDS: LORATADINE 10 MG TAB PO SCH (08:18)
[2019-05-07] MEDS: FERROUS SULFATE 325 MG TAB PO SCH (08:18)
[2019-05-07] MEDS: MONTELUKAST 10 MG TAB PO SCH (08:18)
[2019-05-07] MEDS: TAMSULOSIN 0.4 MG CAP.ER.24H PO SCH (08:19)
[2019-05-07] MEDS: BACLOFEN 10 MG TAB PO SCH ×3 (08:19→21:18)
[2019-05-07] MEDS: VARENICLINE 1 MG TAB PO SCH ×2 (08:19→21:19)
[2019-05-07] MEDS: PREGABALIN 100 MG CAP PO SCH ×3 (08:19→21:18)
[2019-05-07] MEDS: FINASTERIDE 5 MG TAB PO SCH (08:19)
[2019-05-07] MEDS ORDERED: NON-FORMULARY DRUG (Vitamin B Complex [Vitamin B Complex] 1 CAP) PO SCH (09:00)
[2019-05-07] MEDS: ZUBSOLV SUBLINGUAL SCH ×2 (09:55→21:34)
[2019-05-07 10:19] LABS: Basophils # (A) 0.1 k/uL (0-0.2); Basophils % (A) 1 %; Eosinophils # (A) 0.2 k/uL (0-0.7); Eosinophils % (A) 4 %; HCT 25.8 % (39.0-53.0); HGB 8.7 gm/dL (13.0-17.5); Lymphocytes # (A) 1.9 k/uL (1.0-4.8); Lymphocytes % (A) 33 %; MCH 33.3 pg (25.0-35.0); MCHC 33.7 g/dL (31.0-37.0); MCV 98.7 fL (80.0-100.0); Mean Platelet Volume 8.6; Monocytes # (A) 0.4 k/uL (0-1.0); Monocytes % (A) 7 %; Neutrophils # (A) 3.1 k/uL (1.3-7.7); Neutrophils % (A) 53 %; Platelet Count 181 k/uL (150-450); RBC 2.62 m/uL (4.30-5.90); RDW 12.7 % (11.5-15.5); WBC 5.8 k/uL (3.8-10.6)
--- NOTE | 2019-05-07 10:42 | P.HPIM ---
History of Present Illness H&P Date: 05/06/19 Chief Complaint: Hemoptysis This is a 38-year-old gentleman with history of asthma, gastroesophageal reflux disease, anemia, GI bleed -EGD in September 2018 reporting small antral ulcers, active bleeding 2 cm ulcer along the duodenal sweep requiring Endo Clip, NSAID use, seizure disorder, nicotine dependence on Suboxone presented to the ER with complaints of nausea and multiple episodes of coffee-ground emesis since the evening before. Denies abdominal pain Reports he had recently been using NSAIDs status post oral surgery. Denies alcohol use. Hemoglobin on arrival 12.8.LFTs within normal limits. In the ER, Patient continued having bright red maroon hemoptysis with clots, hemoglobin dropped to 10.4 .Hemoglobin currently 10. Admitted to the ICU. VSS. Evaluated by eeg technician and GI. Underwent EGD reporting duodenal ulcer located 10 sweep of large adherent clot that could not be removed, status post injection epinephrine ,moderate size hiatal hernia. Review of Systems ROS Statement: Those systems with pertinent positive or pertinent negative responses have been documented in the HPI. ROS Other: All systems not noted in ROS Statement are negative. Past Medical History Past Medical History: Asthma, GERD/Reflux, GI Bleed, Prostate Disorder, Seizure Disorder Additional Past Medical History / Comment(s): Anemia, upper GI bleed, bleeding gastric ulcers, duodenitis, antral gastritis, hematuria, BPH, chronic cervical and lumbar back pain which radiates into bilateral legs, one time seizure @age of 13-nothing since History of Any Multi-Drug Resistant Organisms: None Reported Past Surgical History: Back Surgery Additional Past Surgical History / Comment(s): EGDs, colonoscopy, lumbar back surgery, pain clinic procedures, dental work Past Anesthesia/Blood Transfusion Reactions: No Reported Reaction Smoking Status: Current every day smoker - Past Family History Mother Family Medical History: No Reported History Additional Family Medical History / Comment(s): Mother is healthy Father Family Medical History: Cancer Additional Family Medical History / Comment(s): Lung CA Medications and Allergies Home Medications Medication Instructions Recorded Confirmed Type Ferrous Sulfate [Iron (65 MG 325 mg PO DAILY 07/20/18 05/05/19 History Elemental)] Finasteride [Proscar] 5 mg PO DAILY 07/20/18 05/05/19 History Multivitamins, Thera [Multivitamin 1 tab PO DAILY 07/20/18 05/05/19 History (formulary)] Vitamin B Complex 1 cap PO DAILY 07/20/18 05/05/19 History Omeprazole 40 mg PO DAILY #60 capsule. 07/23/18 05/05/19 Rx Albuterol Inhaler [Ventolin Hfa 2 puff INHALATION RT-Q4H PRN 10/05/18 05/05/19 History Inhaler] Baclofen [Lioresal] 20 mg PO TID 10/05/18 05/05/19 History Cetirizine HCl [Zyrtec] 10 mg PO DAILY 10/05/18 05/05/19 History Pregabalin [Lyrica] 200 mg PO TID 10/05/18 05/05/19 History Alfuzosin HCl [Alfuzosin HCl ER] 10 mg PO DAILY 05/05/19 05/05/19 History Buprenorphine HCl/Naloxone HCl 1 tab SUBLINGUAL BID 05/05/19 05/05/19 History [Zubsolv 5.7-1.4 mg Tablet Sl] Ergocalciferol [Vitamin D2] 50,000 unit PO Q7D 05/05/19 05/05/19 History Montelukast [Singulair] 10 mg PO DAILY 05/05/19 05/05/19 History Ondansetron Odt [Zofran Odt] 4 mg PO Q12HR PRN 05/05/19 05/05/19 History Varenicline [Chantix Continuing 1 mg PO BID 05/05/19 05/05/19 History Pack] buPROPion HCL [Wellbutrin XL] 300 mg PO DAILY 05/05/19 05/05/19 History hydrOXYzine PAMOATE 50 mg PO DAILY PRN 05/05/19 05/05/19 History Allergies Allergy/AdvReac Type Severity Reaction Status Date / Time No Known Allergies Allergy Verified 05/05/19 07:58 Physical Exam Vitals: Vital Signs Temp Pulse Pulse Resp BP BP Pulse Ox 05/06/19 16:00 97.9 F 90 20 138/93 96 05/06/19 15:55 14 05/06/19 14:00 98 14 98 05/06/19 13:00 83 17 129/80 95 05/06/19 12:00 14 05/06/19 11:00 87 21 129/80 96 05/06/19 10:00 86 15 96 07/25/19 09:00 80 19 113/75 96 05/06/19 08:30 80 19 113/75 96 05/06/19 08:00 80 19 120/77 95 05/06/19 07:00 88 17 112/81 98 05/06/19 06:00 92 19 118/80 98 05/06/19 05:00 79 16 123/84 96 05/06/19 04:00 97.7 F 82 16 125/82 93 L 05/06/19 03:00 76 14 135/81 96 05/06/19 02:00 86 18 135/82 95 05/06/19 01:00 110 H 18 123/82 98 05/06/19 00:00 97.8 F 85 14 124/79 94 L 05/05/19 23:00 96 16 128/79 95 05/05/19 22:00 87 18 120/80 95 05/05/19 21:00 85 18 124/79 100 05/05/19 20:00 98.4 F 89 14 122/84 99 05/05/19 19:00 85 13 124/84 100 Intake and Output 05/06/19 05/06/19 05/06/19 06:59 14:59 22:59 Intake Total 800 1250 200 Output Total 1400 300 Balance -600 950 200 Intake: IV 800 900 200 Potassium Chloride 10 meq 200 In Water For Injection 1 100ml.bag @ 100 mls/hr IVPB Q1H [facility] Rx#: [id number] Sodium Chloride 0.9% 1, 800 700 200 000 ml @ 100 mls/hr IV . Q10H [facility] Rx#:[id number] Intake, IV Titration 350 Amount ACETAMINOPHEN IV (For NPO 100 ) 1,000 mg In Empty Bag 1 bag @ 400 mls/hr IVPB Q6HR PRN Rx#:[id number] Sodium Chloride 0.9% 500 250 ml 500 ml @ 250 mls/hr IV .Q2H [facility] Rx#:[id number] Output: Gastric Drainage 600 Urine 800 300 Other: Voiding Method Toilet Toilet Toilet # Voids 1 Weight 82 kg PHYSICAL EXAM: VITAL SIGNS: As above GENERAL: Sitting up in bed, no acute distress HEENT: Conjunctivae normal. eyes normal. NECK: No JVD. No thyroid enlargement. No LNs CARDIOVASCULAR: S1, S2 regular.. No murmur RESPIRATION: Breath sounds diminished in the bases. No rhonchi or crackles. No bronchial breathing. ABDOMEN: Soft, nontender . No guarding. no masses palpable. No ascites, No hepatosplenomegaly.Bowel sounds heard. LEGS: No edema. no swelling PSYCHIATRY: Alert and oriented X3, mood and affect normal. NERVOUS SYSTEM: Cranial N 2-12 grossly normal. Moves all 4 limbs. Diffuse weakness No focal deficits. Strength and sensation grossly intact.. Skin: no lesions, no rash Joints: No active swelling. No inflammation. Lymphatic system. No LN neck axilla or groin. Results CBC & Chem 7: 05/07/19 09:38 05/06/19 04:16 Labs: Abnormal Lab Results - Last 24 Hours (Table) 05/05/19 05/06/19 05/06/19 Range/Units 20:13 04:16 04:16 RBC 3.18 L 3.00 L (4.30-5.90) m/uL Hgb 10.4 L 10.0 L (13.0-17.5) gm/dL Hct 30.8 L 29.4 L (39.0-53.0) % BUN 28 H (9-20) mg/dL Glucose 106 H (74-99) mg/dL Thrombosis Risk Factor Assmnt - Choose All That Apply Any of the Below Risk Factors Present?: Yes Each Factor Represents 1 point: Age 41-60 years Other Risk Factors: No Other congenital or acquired thrombophilia - If yes, enter type in comment: No Thrombosis Risk Factor Assessment Total Risk Factor Score: 1 Thrombosis Risk Factor Assessment Level: Low Risk Assessment and Plan Assessment: Acute GI bleed, status post EGD reporting duodenal ulcer along the duodenal sweep with large adherent clot that could not be removed, status post epi injection -Acute blood loss anemia, secondary to the above -Small to moderate hiatal hernia -Chronic nicotine dependence -Chronic back pain, history of surgery -BPH Plan: Continue on current medication regime ,monitoring and symptomatic treatment. Continue IV PPI. NPO. Serial CBCs. Follow closely with GI. Home meds have been reviewed and resumed. further recommendations to follow. The impression and plan of care has been dictated as directed. : I performed a history and examination of this patient, discussed the same with the dictator. I agree with the dictator's note ,documented as a scribe. Any additional findings or plans will be noted..
--- NOTE | 2019-05-07 18:16 | P.PN ---
Subjective Progress Note Date: 05/07/19 This is a 38-year-old gentleman with history of asthma, gastroesophageal reflux disease, anemia, GI bleed -EGD in September 2018 reporting small antral ulcers, active bleeding 2 cm ulcer along the duodenal sweep requiring Endo Clip, NSAID use, seizure disorder, nicotine dependence on Suboxone presented to the ER with complaints of nausea and multiple episodes of coffee-ground emesis since the evening before. Denies abdominal pain Reports he had recently been using NSAIDs status post oral surgery. Denies alcohol use. Hemoglobin on arrival 12.8.LFTs within normal limits. In the ER, Patient continued having bright red maroon hemoptysis with clots, hemoglobin dropped to 10.4 .Hemoglobin currently 10. Admitted to the ICU. VSS. Evaluated by hairpiece stylist and GI. Underwent EGD reporting duodenal ulcer located 10 sweep of large adherent clot that could not be removed, status post injection epinephrine ,moderate size hiatal hernia. 05/07/2019 no bleeding reported that hemoglobin has dropped nearly 2 g, currently 8.7. VSS. Denies abdominal pain. Denies nausea. Maintained on PPI. GI notified and patient is scheduled for EGD tomorrow. Denies chest pain, palpitations or shortness of breath. Denies lightheadedness dizziness or focal deficits. Objective - Vital Signs Vital signs: Vital Signs Temp 98.1 F 05/07/19 06:40 Pulse 85 05/07/19 06:40 Resp 15 05/07/19 06:40 BP 120/59 05/07/19 06:40 Pulse Ox 97 05/07/19 06:40 Intake & Output 05/06/19 05/07/19 05/07/19 18:59 06:59 18:59 Intake Total 1450 300 Output Total 300 Balance 1150 300 Intake: IV 1100 300 Potassium Chloride 10 meq 200 In Water For Injection 1 100ml.bag @ 100 mls/hr IVPB Q1H [facility] Rx#: [id number] Sodium Chloride 0.9% 1, 900 300 000 ml @ 100 mls/hr IV . Q10H [facility] Rx#:[id number] Intake, IV Titration 350 Amount ACETAMINOPHEN IV (For NPO 100 ) 1,000 mg In Empty Bag 1 bag @ 400 mls/hr IVPB Q6HR PRN Rx#:[id number] Sodium Chloride 0.9% 500 250 ml 500 ml @ 250 mls/hr IV .Q2H [facility] Rx#:[id number] Output: Urine 300 Other: Voiding Method Toilet # Voids 1 3 - Exam VITAL SIGNS: As above GENERAL: Sitting up in bed, no acute distress HEENT: Conjunctivae normal. eyes normal. NECK: No JVD. No thyroid enlargement. No LNs CARDIOVASCULAR: S1, S2 regular.. No murmur RESPIRATION: Breath sounds diminished in the bases. No rhonchi or crackles. ABDOMEN: Soft, nontender . No guarding. no masses palpable. Bowel sounds heard. LEGS: No edema. no swelling PSYCHIATRY: Alert and oriented X3, mood and affect normal. NERVOUS SYSTEM: Cranial N 2-12 grossly normal. Moves all 4 limbs. Diffuse weakness No focal deficits. Strength and sensation grossly intact.. Skin: no lesions, no rash - Labs CBC & Chem 7: 05/07/19 09:38 05/06/19 04:16 Labs: Abnormal Lab Results - Last 24 Hours (Table) 05/07/19 Range/Units 09:38 RBC 2.62 L (4.30-5.90) m/uL Hgb 8.7 L (13.0-17.5) gm/dL Hct 25.8 L (39.0-53.0) % Assessment and Plan Assessment: Acute GI bleed, status post EGD reporting duodenal ulcer along the duodenal sweep with large adherent clot that could not be removed, status post epi injection -Acute blood loss anemia, secondary to the above -Small to moderate hiatal hernia -Chronic nicotine dependence -Chronic back pain, history of surgery -BPH Plan: Continue on current medication regime ,monitoring and symptomatic treatment. Telemetry monitoring. Continue IV PPI. Maintain NPO. Repeat CBC this afternoon. EGD scheduled for tomorrow. Follow closely with GI. The impression and plan of care has been dictated as directed. : I performed a history and examination of this patient, discussed the same with the dictator. I agree with the dictator's note ,documented as a scribe. Any additional findings or plans will be noted..
[2019-05-07 19:14] LABS: HCT 26.4 % (39.0-53.0); HGB 8.9 gm/dL (13.0-17.5); MCH 33.1 pg (25.0-35.0); MCHC 33.7 g/dL (31.0-37.0); MCV 98.2 fL (80.0-100.0); Mean Platelet Volume 10.4; Platelet Count 188 k/uL (150-450); RBC 2.69 m/uL (4.30-5.90); RDW 12.6 % (11.5-15.5); WBC 5.6 k/uL (3.8-10.6)
--- NOTE | 2019-05-07 20:53 | P.PN ---
Subjective Progress Note Date: 05/07/19 Principal diagnosis: GI bleed, anemia of acute blood loss, duodenal ulcer The patient tolerated liquids yesterday and denies any signs or symptoms of GI bleeding. No bowel movements reported. No nausea or vomiting. Objective - Vital Signs Vital signs: Vital Signs Temp 98 F 05/07/19 15:00 Pulse 98 05/07/19 15:00 Resp 14 05/07/19 15:00 BP 111/66 05/07/19 15:00 Pulse Ox 98 05/07/19 15:00 Intake & Output 05/07/19 05/07/19 05/08/19 06:59 18:59 06:59 Intake Total 300 Balance 300 Intake: IV 300 Sodium Chloride 0.9% 1, 300 000 ml @ 100 mls/hr IV . Q10H [facility] Rx#:[id number] Other: # Voids 3 4 - Exam On physical examination, patient appears comfortable in no apparent distress. HEAD: Normocephalic, atraumatic. EYES: No scleral icterus. No conjunctival injection. MOUTH: No lesions, tongue midline. NECK: Trachea midline, no gross abnormalities. CHEST: Clear to auscultation with no wheezing or rhonchi appreciated. HEART: Regular rate and rhythm. ABDOMEN: Soft. Bowel sounds are positive. No organomegaly. No guarding or rigidity. EXTREMITIES: No pedal edema. SKIN: No rashes, no jaundice. NEUROLOGIC: Alert and oriented x3. No focal deficits. - Labs CBC & Chem 7: 05/07/19 19:02 05/06/19 04:16 Labs: Abnormal Lab Results - Last 24 Hours (Table) 05/07/19 05/07/19 Range/Units 09:38 19:02 RBC 2.62 L 2.69 L (4.30-5.90) m/uL Hgb 8.7 L 8.9 L (13.0-17.5) gm/dL Hct 25.8 L 26.4 L (39.0-53.0) % Assessment and Plan (1) Upper GI bleed Narrative/Plan: 38-year-old male presenting with hematemesis and anemia of acute blood loss. Previously the patient had been hospitalized in September 2018 with acute GI bleed secondary to antral ulcers and duodenal ulcers with duodenal stricture noted. Patient was taken for endoscopy with finding of a large ulcer in the duodenal sweep. Current Visit: Yes Status: Acute Code(s): K92.2 - GASTROINTESTINAL HEMORRHAGE, UNSPECIFIED SNOMED Code(s): 21168121 (2) Anemia associated with acute blood loss Current Visit: Yes Status: Acute Code(s): D62 - ACUTE POSTHEMORRHAGIC ANEMIA SNOMED Code(s): 634911094 Plan: Supportive care Clear liquid diet Nothing by mouth after midnight Plan for EGD tomorrow Continue to monitor hemoglobin and hematocrit and transfuse as needed Avoid NSAID use Thank you for allowing us to participate in the care of the patient, we will continue to follow
[2019-05-08] MEDS: SODIUM CHLORIDE 0.9% 1,000 ML IV SCH ×3 (05:32→16:44)
[2019-05-08 07:52] LABS: African American GFR (CKD) >90 (>60 ml/min/1.73 sqM); Anion Gap 4 mmol/L; Blood Urea Nitrogen 7 mg/dL (9-20); Calcium 8.7 mg/dL (8.4-10.2); Carbon Dioxide 29 mmol/L (22-30); Chloride 107 mmol/L (98-107); Glucose 100 mg/dL (74-99); Sodium 140 mmol/L (137-145)
[2019-05-08 08:02] LABS: Basophils # (A) 0.1 k/uL (0-0.2); Basophils % (A) 2 %; Eosinophils # (A) 0.2 k/uL (0-0.7); Eosinophils % (A) 6 %; HGB 8.4 gm/dL (13.0-17.5); Lymphocytes # (A) 1.9 k/uL (1.0-4.8); Lymphocytes % (A) 48 %; MCH 32.7 pg (25.0-35.0); MCHC 33.7 g/dL (31.0-37.0); Monocytes # (A) 0.2 k/uL (0-1.0); Monocytes % (A) 5 %; Neutrophils # (A) 1.5 k/uL (1.3-7.7); Neutrophils % (A) 37 %; Platelet Count 169 k/uL (150-450); RBC 2.57 m/uL (4.30-5.90); RDW 12.5 % (11.5-15.5)
[2019-05-08] MEDS: FINASTERIDE 5 MG TAB PO SCH (09:24)
[2019-05-08] MEDS: FERROUS SULFATE 325 MG TAB PO SCH (09:24)
[2019-05-08] MEDS: PREGABALIN 100 MG CAP PO SCH ×3 (09:24→21:34)
[2019-05-08] MEDS: MULTIVITAMINS, THERA 1 EACH TAB PO SCH (09:24)
[2019-05-08] MEDS: BACLOFEN 10 MG TAB PO SCH ×3 (09:24→21:34)
[2019-05-08] MEDS: MONTELUKAST 10 MG TAB PO SCH (09:24)
[2019-05-08] MEDS: VARENICLINE 1 MG TAB PO SCH ×2 (09:24→21:34)
[2019-05-08] MEDS: TAMSULOSIN 0.4 MG CAP.ER.24H PO SCH (09:24)
[2019-05-08] MEDS: LORATADINE 10 MG TAB PO SCH (09:25)
[2019-05-08] MEDS: ZUBSOLV SUBLINGUAL SCH ×2 (09:25→21:34)
[2019-05-08] MEDS: PANTOPRAZOLE 40 MG/10 ML VIAL IV SCH ×2 (09:25→21:34)
[2019-05-08] MEDS ORDERED: LIDOCAINE 1% INJ 10MG/ML (20 ML MDV) ONE (11:28)
[2019-05-08] MEDS ORDERED: fentaNYL (PF) 50 MCG/ML 2 ML AMP ONE (11:28)
[2019-05-08] MEDS ORDERED: PROPOFOL 10 MG/ML 20 ML VIAL IV ONE (11:28)
[2019-05-08] MEDS ORDERED: IV FLUID CONTINUATION 400 ML IV ONE (11:43)
--- NOTE | 2019-05-08 12:12 | P.PCN ---
Date of Procedure: 05/08/19 Description of Procedure: BRIEF HISTORY: Patient is a 38-year-old, pleasant, male, admitted to the intensive care unit with multiple episodes of coffee-ground emesis. Hemoglobin was 12.8 g/dL and subsequently fell and was stable in the 10 range, before falling further. Patient however if diarrheal further symptoms or signs of GI bleeding. Initial EGD showed a clot in the duodenal sweep which could not be lavaged away with some epinephrine injection as well as a small to moderate size hiatal hernia. He was admitted hospital in September 2018 with acute GI bleed an upper endoscopy revealed antral ulcers duodenal ulcers with duodenal stricture. Since then he has been off NSAIDs and has been on Protonix 40 mg twice daily.. PROCEDURE PERFORMED: Esophagogastroduodenoscopy with injection epinephrine. PREOPERATIVE DIAGNOSIS: Upper GI bleed. IV sedation per anesthesia. PROCEDURE: After informed consent was obtained, the patient was brought into the endoscopy unit. IV sedation was administered by Anesthesia under continuous monitoring. Initially the Olympus GIF-190 video endoscope was inserted into the mouth. Esophagus intubated without any difficulty. It was gradually advanced into the stomach and duodenum and carefully examined. In the bulb of the duodenum along the duodenal sweep the previously seen ulcer was noted with deformity of the duodenal bulb and some stricturing also seen. At this time the ulcer appeared to be superficial with the previously seen clot no longer prese nt. No vessel or active bleeding from the ulcer was seen. There was minimal oozing around the ulcer after manipulation due to trauma from the scope however no active bleeding from the ulcer itself. The second portion of the duodenum could not be reached due to a stricturing noted at the sweep. The scope at this time was withdrawn to the stomach, adequately insufflated with air, and upon careful examination, mucosa of the antrum, body, cardia and the fundus appeared normal. The scope was then withdrawn into the esophagus. The GE junction was located at 39 cm from the incisors. Small to moderate size hiatal hernia noted. The esophagus appeared normal. There were no erosions or ulcerations seen and the patient tolerated the procedure well. IMPRESSION: 1. Duodenal ulcer without active bleeding or other high risk stigmata for bleeding. The duodenal sweep was also noted to be strictured. 2. Small to moderate size hiatal hernia. RECOMMENDATIONS: The findings of this examination were discussed with the patient. Okay to resume diet. Continue Protonix 40 mg twice daily. Avoid all NSAID use. Continue to monitor hemoglobin and hematocrit and transfuse as needed.
[2019-05-08] MEDS: SUCRALFATE 1 GM TAB PO SCH ×2 (13:17→16:44)
--- NOTE | 2019-05-08 14:29 | P.PN ---
Subjective Progress Note Date: 05/08/19 Principal diagnosis: Upper GI bleed/duodenal ulcer Wang has a known recent history of duodenal ulcer, secondary to history of nonsteroidal anti-inflammatory use, he has duodenal ulcer, with duodenal stricture. Patient underwent repeat EGD which demonstrated duodenal ulcer clot had shrunk in size and there is little or no bleeding. This patient had dropped 2 more grams of hemoglobin and the concern was that the clot had fallen off and bleeding had restarted. Objective - Vital Signs Vital signs: Vital Signs Temp 96.3 F L 05/08/19 11:16 Pulse 106 H 05/08/19 11:16 Resp 18 05/08/19 11:16 BP 136/78 05/08/19 11:16 Pulse Ox 99 05/08/19 11:16 Intake & Output 05/07/19 05/08/19 05/08/19 18:59 06:59 18:59 Intake Total 590 200 Balance 590 200 Intake: IV 200 Oral 590 Other: Voiding Method Toilet Toilet # Voids 4 2 - Exam General: [Patient awake, alert and oriented times 3. Patient in no acute distress.] HEENT: [PERRL. EOMI. No pharyngeal erythema or exudate.] Neck: [No adenopathy.] Cardiac: [Heart regular in rate and rhythm. No S3. No S4. No clicks, rubs. No murmur.] Lungs: [Clear to auscultation bilaterally.] Abdomen: [No mass. No organomegaly. Bowel sounds presnt and normoactive in all 4 quadrants.] Extremes: [No edema no cyanosis no claudication normal pulses] : [] Musculoskeletal: [No joint erythema, edema or tenderness.] Skin: [No rash.] Neurologic: [No lateralizing deficits. CN II - XII grossly intact.] Lymphatic: [No adenopathy.] - Labs CBC & Chem 7: 05/08/19 07:00 05/08/19 07:00 Labs: Abnormal Lab Results - Last 24 Hours (Table) 05/07/19 05/08/19 05/08/19 Range/Units 19:02 07:00 07:00 RBC 2.69 L 2.57 L (4.30-5.90) m/uL Hgb 8.9 L 8.4 L (13.0-17.5) gm/dL Hct 26.4 L 25.0 L (39.0-53.0) % BUN 7 L (9-20) mg/dL Glucose 100 H (74-99) mg/dL Assessment and Plan (1) Anemia Current Visit: Yes Status: Acute Code(s): D64.9 - ANEMIA, UNSPECIFIED SNO MED Code(s): 740992539 (2) Anemia associated with acute blood loss Current Visit: Yes Status: Acute Code(s): D62 - ACUTE POSTHEMORRHAGIC ANEMIA SNOMED Code(s): 744055786 (3) Hematemesis Current Visit: Yes Status: Acute Code(s): K92.0 - HEMATEMESIS SNOMED Code(s): 6402301 (4) Peptic ulcer disease Current Visit: Yes Status: Acute Code(s): K27.9 - PEPTIC ULC, SITE UNSP, UNSP AC OR CHR, W/O HEMOR OR PERF SNOMED Code(s): 98066123 (5) Upper GI bleed Current Visit: Yes Status: Acute Code(s): K92.2 - GASTROINTESTINAL H EMORRHAGE, UNSPECIFIED SNOMED Code(s): 74020499 (6) Anemia due to blood loss Current Visit: No Status: Acute Code(s): D50.0 - IRON DEFICIENCY ANEMIA SECONDARY TO BLOOD LOSS (CHRONIC) SNOMED Code(s): 291425835 (7) Gastrointestinal hemorrhage due to nonsteroidal antiinflammatory drug Current Visit: No Status: Acute Code(s): K92.2 - GASTROINTESTINAL HEM ORRHAGE, UNSPECIFIED; T39.395A - ADVERSE EFFECT OF NONSTEROIDAL ANTI- INFLAMMATORY DRUGS, INIT SNOMED Code(s): 62771336 Plan: Upper GI bleed Large duodenal ulcer with duodenal stricture Patient quite stable Repeat endoscopy suggests ulcer stable no further bleeding If patient's hemoglobin remained stable through tomorrow will discharge home tomorrow and I'll reevaluate patient in office in 3-5 days Time with Patient: Greater than 30
[2019-05-09] MEDS: SODIUM CHLORIDE 0.9% 1,000 ML IV SCH (04:48)
[2019-05-09] MEDS: VARENICLINE 1 MG TAB PO SCH (07:55)
[2019-05-09] MEDS: PANTOPRAZOLE 40 MG/10 ML VIAL IV SCH (07:55)
[2019-05-09] MEDS: SUCRALFATE 1 GM TAB PO SCH ×2 (07:55→12:00)
[2019-05-09] MEDS: BACLOFEN 10 MG TAB PO SCH (07:56)
[2019-05-09] MEDS: LORATADINE 10 MG TAB PO SCH (07:56)
[2019-05-09] MEDS: MULTIVITAMINS, THERA 1 EACH TAB PO SCH (07:56)
[2019-05-09] MEDS: PREGABALIN 100 MG CAP PO SCH (07:56)
[2019-05-09] MEDS: FINASTERIDE 5 MG TAB PO SCH (07:56)
[2019-05-09] MEDS: FERROUS SULFATE 325 MG TAB PO SCH (07:56)
[2019-05-09] MEDS: TAMSULOSIN 0.4 MG CAP.ER.24H PO SCH (07:56)
[2019-05-09] MEDS: MONTELUKAST 10 MG TAB PO SCH (07:57)
[2019-05-09] MEDS ORDERED: ERGOCALCIFEROL 50,000 UNIT CAP PO SCH (09:00)
[2019-05-09] MEDS: ZUBSOLV SUBLINGUAL SCH (09:39)
[2019-05-09 11:31] LABS: HCT 27.7 % (39.0-53.0); HGB 9.6 gm/dL (13.0-17.5); MCHC 34.5 g/dL (31.0-37.0); MCV 98.6 fL (80.0-100.0); Mean Platelet Volume 8.3; Platelet Count 254 k/uL (150-450); RBC 2.81 m/uL (4.30-5.90); RDW 13.6 % (11.5-15.5); WBC 8.6 k/uL (3.8-10.6)
--- NOTE | 2019-05-09 11:39 | P.DS ---
Providers Date of admission: 05/05/19 09:21 Expected date of discharge: 05/09/19 Attending physician: Valerio Canales Consults: 05/05/19 09:20 Consult Physician Stat Consulting Provider: Gloria Valencia Consult Reason/Comments: ICU management Do you want consulting provider notified?: Yes 05/05/19 09:22 Consult Physician Stat Consulting Provider: Matilde Sanderson Consult Reason/Comments: Upper GI bleed, hematemesis history of ulcers Do you want consulting provider notified?: Yes Primary care physician: Owen Mills - Discharge Diagnosis(es) (1) Anemia Current Visit: Yes Status: Acute (2) Anemia associated with acute blood loss Current Visit: Yes Status: Acute (3) Hematemesis Current Visit: Yes Status: Acute (4) Peptic ulcer disease Current Visit: Yes Status: Acute (5) Upper GI bleed Current Visit: Yes Status: Acute (6) Anemia due to blood loss Current Visit: No Status: Acute (7) Gastrointestinal hemorrhage due to nonsteroidal antiinflammatory drug Current Visit: No Status: Acute Hospital Course: Patient was admitted to the hospital with hematemesis, melanotic stool history of duodenal ulcer EGD a large duodenal ulcer was identified with a large elongated clot Dr. Matilde LAMBERT injected the base of the clot with epinephrine. Patient stabilized and a 3 dropped 2 more grams of hemoglobin I believe he was transfused a total of 3 units packed red cells yesterday he underwent a repeat, EGD, per Veloce, the clot was found drunk and no further bleeding noted. Hemoglobin was 9.6 General: [Patient awake, alert and oriented times 3. Patient in no acute distress.] HEENT: [PERRL. EOMI. No pharyngeal erythema or exudate.] Neck: [No adenopathy.] Cardiac: [Heart regular in rate and rhythm. No S3. No S4. No clicks, rubs. No murmur.] Lungs: [Clear to auscultation bilaterally.] Abdomen: [No mass. No organomegaly. Bowel sounds presnt and normoactive in all 4 quadrants.] Extremes: [No edema no cyanosis no claudication normal pulses] : [] Musculoskeletal: [No joint erythema, edema or tenderness.] Skin: [No rash.] Neurologic: [No lateralizing deficits. CN II - XII grossly intact.] Lymphatic: [No adenopathy.] Pertinent Studies: EGD 2 Serial H&H's last hemoglobin was 9.6 Patient Condition at Discharge: Good Plan - Discharge Summary Discharge Rx Participant: No New Discharge Prescriptions: No Action Multivitamins, Thera [Multivitamin (formulary)] 1 tab PO DAILY Ferrous Sulfate [Iron (65 MG Elemental)] 325 mg PO DAILY Vitamin B Complex 1 cap PO DAILY Finasteride [Proscar] 5 mg PO DAILY Omeprazole 40 mg PO DAILY #60 capsule. Pregabalin [Lyrica] 200 mg PO TID Albuterol Inhaler [Ventolin Hfa Inhaler] 2 puff INHALATION RT-Q4H PRN PRN Reason: Dyspnea Baclofen [Lioresal] 20 mg PO TID Cetirizine HCl [Zyrtec] 10 mg PO DAILY Varenicline [Chantix Continuing Pack] 1 mg PO BID Montelukast [Singulair] 10 mg PO DAILY Alfuzosin HCl [Alfuzosin HCl ER] 10 mg PO DAILY hydrOXYzine PAMOATE 50 mg PO DAILY PRN PRN Reason: Itching Ergocalciferol [Vitamin D2] 50,000 unit PO Q7D Ondansetron Odt [Zofran Odt] 4 mg PO Q12HR PRN PRN Reason: Nausea buPROPion HCL [Wellbutrin XL] 300 mg PO DAILY Buprenorphine HCl/Naloxone HCl [Zubsolv 5.7-1.4 mg Tablet Sl] 1 tab SUBLINGUAL BID Discharge Medication List Ferrous Sulfate [Iron (65 MG Elemental)] 325 mg PO DAILY 07/20/18 [History] Finasteride [Proscar] 5 mg PO DAILY 07/20/18 [History] Multivitamins, Thera [Multivitamin (formulary)] 1 tab PO DAILY 07/20/18 [History] Vitamin B Complex 1 cap PO DAILY 07/20/18 [History] Omeprazole 40 mg PO DAILY #60 capsule. 07/23/18 [Rx] Albuterol Inhaler [Ventolin Hfa Inhaler] 2 puff INHALATION RT-Q4H PRN 10/05/18 [History] Baclofen [Lioresal] 20 mg PO TID 10/05/18 [History] Cetirizine HCl [Zyrtec] 10 mg PO DAILY 10/05/18 [History] Pregabalin [Lyrica] 200 mg PO TID 10/05/18 [History] Alfuzosin HCl [Alfuzosin HCl ER] 10 mg PO DAILY 05/05/19 [History] Buprenorphine HCl/Naloxone HCl [Zubsolv 5.7-1.4 mg Tablet Sl] 1 tab SUBLINGUAL BID 05/05/19 [History] Ergocalciferol [Vitamin D2] 50,000 unit PO Q7D 05/05/19 [History] Montelukast [Singulair] 10 mg PO DAILY 05/05/19 [History] Ondansetron Odt [Zofran Odt] 4 mg PO Q12HR PRN 05/05/19 [History] Varenicline [Chantix Continuing Pack] 1 mg PO BID 05/05/19 [History] buPROPion HCL [Wellbutrin XL] 300 mg PO DAILY 05/05/19 [History] hydrOXYzine PAMOATE 50 mg PO DAILY PRN 05/05/19 [History] Follow up Appointment(s)/Referral(s): Owen Mills MD [Primary Care Provider] - 1-2 days Boy Ng MD [STAFF PHYSICIAN] - 1 Week Activity/Diet/Wound Care/Special Instructions: No emphatically no nonsteroidal anti-inflammatory agents at all Discharge Disposition: HOME SELF-CARE
[2019-05-09 11:52] VITALS: BP 111/74; PULSE 98; RESP 18; TEMP 98
== END 2019-05-09 14:30 | disposition home or self-care (01) | DRG 378 ==
LOC: EC 07:21 → 2SICU 09:21 → 4MS4W 05-06 19:21 → 3NMEDONC 05-07 15:57
PROVIDERS: ADMIT Family Medicine; ATTEND Family Medicine
PROC: 0DJ08ZZ Inspection of Upper Intestinal Tract, Via Natural or Artificial Opening Endoscopic (ICD-10-PCS; 2019-05-05)
PROC: 3E0G8GC Introduction of Other Therapeutic Substance into Upper GI, Via Natural or Artificial Opening Endoscopic (ICD-10-PCS; principal; 2019-05-05 08:45)
PROC: 0DJ08ZZ Inspection of Upper Intestinal Tract, Via Natural or Artificial Opening Endoscopic (ICD-10-PCS; 2019-05-08)
DX: K26.4 Chronic or unspecified duodenal ulcer with hemorrhage (principal); D62 Acute posthemorrhagic anemia; K31.5 Obstruction of duodenum; F11.20 Opioid dependence, uncomplicated; F17.200 Nicotine dependence, unspecified, uncomplicated; G40.909 Epilepsy, unspecified, not intractable, without status epilepticus; G89.29 Other chronic pain; J45.909 Unspecified asthma, uncomplicated; K21.9 Gastro-esophageal reflux disease without esophagitis; K44.9 Diaphragmatic hernia without obstruction or gangrene; N40.0 Benign prostatic hyperplasia without lower urinary tract symptoms; T39.395A Adverse effect of other nonsteroidal anti-inflammatory drugs [NSAID], initial encounter; M54.2 Cervicalgia; M54.5 Low back pain; M79.605 Pain in left leg; M79.604 Pain in right leg; Z79.899 Other long term (current) drug therapy; Z80.1 Family history of malignant neoplasm of trachea, bronchus and lung
CPT/HCPCS: 36415; 43235; 43255; 71045; 80048; 80053; 81003; 82150; 82271; 83690; 85025; 85027; 85610; 85730; 86850; 86900; 86901; 96361; 96374; 99291

== ENCOUNTER 2022-09-24 17:03 | Emergency (ER) | payer OTHER ==
[2022-09-24 17:46] VITALS: BP 143/84; PULSE 106; RESP 20; TEMP 98
[2022-09-24] MEDS ORDERED: CLINDAMYCIN 150 MG CAP PO STA (19:05)
--- NOTE | 2022-09-24 19:09 | ED ---
General Adult HPI - General Chief complaint: Skin/Abscess/Foreign Body Stated complaint: rt knee - poss infection - sent from urgent care Time Seen by Provider: 09/24/22 18:53 Source: patient, RN notes reviewed Mode of arrival: ambulatory Limitations: no limitations - History of Present Illness Initial comments: Patient is a pleasant 41-year-old male presenting to the emergency department with concern for right knee discomfort. Onset of symptoms was just the last day or 2. Patient has been working on his knees as far as doing projects with a car and in the attic. Patient does complain of discomfort and swelling. There is some redness now. No fevers. Area involved is limited to the anterior portion. Patient is ambulatory. Discomfort increases with touch. - Related Data Home Medications Medication Instructions Recorded Confirmed Ferrous Sulfate [Iron (65 MG 325 mg PO DAILY 07/20/18 05/05/19 Elemental)] Finasteride [Proscar] 5 mg PO DAILY 07/20/18 05/05/19 Multivitamins, Thera [Multivitamin 1 tab PO DAILY 07/20/18 05/05/19 (formulary)] Vitamin B Complex 1 cap PO DAILY 07/20/18 05/05/19 Albuterol Inhaler [Ventolin Hfa 2 puff INHALATION RT-Q4H PRN 10/05/18 05/05/19 Inhaler] Baclofen [Lioresal] 20 mg PO TID 10/05/18 05/05/19 Cetirizine HCl [Zyrtec] 10 mg PO DAILY 10/05/18 05/05/19 Pregabalin [Lyrica] 200 mg PO TID 10/05/18 05/05/19 Alfuzosin HCl [Alfuzosin HCl ER] 10 mg PO DAILY 05/05/19 05/05/19 Buprenorphine HCl/Naloxone HCl 1 tab SUBLINGUAL BID 05/05/19 05/05/19 [Zubsolv 5.7-1.4 mg Tablet Sl] Ergocalciferol [Vitamin D2] 50,000 unit PO Q7D 05/05/19 05/05/19 Montelukast [Singulair] 10 mg PO DAILY 05/05/19 05/05/19 Ondansetron Odt [Zofran Odt] 4 mg PO Q12HR PRN 05/05/19 05/05/19 Varenicline [Chantix Continuing 1 mg PO BID 05/05/19 05/05/19 Pack] buPROPion HCL [Wellbutrin XL] 300 mg PO DAILY 05/05/19 05/05/19 hydrOXYzine pamoate [hydrOXYzine 50 mg PO DAILY PRN 05/05/19 05/05/19 PAMOATE] Previous Rx's Medication Instructions Recorded Omeprazole 40 mg PO DAILY #60 capsule. 07/23/18 Clindamycin [Cleocin] 2 tab PO TID #84 cap 09/24/22 Allergies Allergy/AdvReac Type Severity Reaction Status Date / Time No Known Allergies Allergy Verified 05/05/19 07:58 Review of Systems ROS Statement: Those systems with pertinent positive or pertinent negative responses have been documented in the HPI. ROS Other: All systems not noted in ROS Statement are negative. Constitutional: Denies: fever Eyes: Denies: eye pain ENT: Denies: ear pain Respiratory: Denies: cough Cardiovascular: Denies: chest pain Endocrine: Denies: fatigue Gastrointestinal: Denies: abdominal pain Genitourinary: Denies: dysuria Musculoskeletal: Denies: back pain Skin: Reports: as per HPI, rash Neurological: Denies: weakness Past Medical History Past Medical History: Asthma, GERD/Reflux, GI Bleed, Prostate Disorder, Seizure Disorder Additional Past Medical History / Comment(s): Anemia, upper GI bleed, bleeding gastric ulcers, duodenitis, antral gastritis, hematuria, BPH, chronic cervical and lumbar back pain which radiates into bilateral legs, one time seizure @age of 13-nothing since History of Any Multi-Drug Resistant Organisms: None Reported Past Surgical History: Back Surgery Additional Past Surgical History / Comment(s): EGDs, colonoscopy, lumbar back surgery, pain clinic procedures, dental work Past Anesthesia/Blood Transfusion Reactions: No Reported Reaction Past Psychological History: No Psychological Hx Reported Past Alcohol Use History: Rare Past Drug Use History: None Reported - Past Family History Mother Family Medical History: No Reported History Additional Family Medical History / Comment(s): Mother is healthy Father Family Medical History: Cancer Additional Family Medical History / Comment(s): Lung CA General Exam Limitations: no limitations General appearance: alert, in no apparent distress Head exam: Present: normocephalic Eye exam: Present: normal appearance Respiratory exam: Present: normal lung sounds bilaterally Cardiovascular Exam: Present: regular rate, normal rhythm Extremities exam: Present: full ROM, other (Right anterior patellar region with erythema and swelling, mild to moderate. There is mild tenderness. There is minimal abrasions. No swelling or tenderness to the knee joint itself. Erythema is also limited to the anterior portion.) Neurological exam: Present: alert Psychiatric exam: Present: normal affect, normal mood Skin exam: Present: erythema (Anterior knee near the patella) Course Vital Signs 09/24/22 17:43 Temperature 98 F Pulse Rate 106 H Respiratory 20 Rate Blood Pressure 143/84 O2 Sat by Pulse 100 Oximetry Medical Decision Making - Medical Decision Making Patient exam is clearly consistent with infectious bursitis. No evidence of septic arthritis. Patient is warned of signs to look for if symptoms worsened and need to return for reevaluation. Disposition Clinical Impression: Other infective bursitis, right knee Disposition: HOME SELF-CARE Condition: Stable Instructions (If sedation given, give patient instructions): Knee Bursitis (ED), Cellulitis (ED) Additional Instructions: Prescription sent to pharmacy. Please start this tomorrow morning. Return for fever, increased pain, increased swelling, redness, especially around more of the knee, difficulty walking, worsening symptoms or other concerns. Prescriptions: Clindamycin [Cleocin] 2 tab PO TID #84 cap Is patient prescribed a controlled substance at d/c from ED?: No Referrals: Racheal Francois DO [REFERRING] - 1-2 days Time of Disposition: 19:13
== END 2022-09-24 20:25 | disposition home or self-care (01) ==
LOC: EC 17:03
DX: M71.161 Other infective bursitis, right knee (principal); J45.909 Unspecified asthma, uncomplicated; Z79.899 Other long term (current) drug therapy
CPT/HCPCS: 99282

== ENCOUNTER 2023-03-19 10:32 | Day surgery (SDC) | payer OTHER ==
[2023-03-17 15:07] VITALS: BMI 21.1
[~2023-03-19 10:32] MED LIST changes: +LIDOCAINE 1% (10MG/ML) FOR IV START INTRADERMA PRN; +ONDANSETRON 4 MG/2 ML VIAL IVP PRN
[2023-03-19 11:09] VITALS: TEMP 98
[2023-03-19] MEDS ORDERED: PROPOFOL 10 MG/ML 20 ML VIAL IV ONE (11:26)
[2023-03-19] MEDS ORDERED: LIDOCAINE 2% INJ 20 MG/ML (2 ML VIAL) ONE (11:26)
--- NOTE | 2023-03-19 11:38 | P.PCN ---
Date of Procedure: 03/19/23 Procedure(s) Performed: BRIEF HISTORY: Patient is a 42-year-old, pleasant, white male scheduled for an upper endoscopy as a part of evaluation of chronic intermittent nausea vomiting and heartburn of several months duration. is presently on Protonix 40 mg twice daily with some help. He has prior history of duodenal ulcer in 2019 PROCEDURE PERFORMED: Esophagogastroduodenoscopy with biopsy . PREOPERATIVE DIAGNOSIS: Chronic intermittent nausea vomiting of 3 months duration sedation per anesthesia. PROCEDURE: After informed consent was obtained, the patient was brought into the endoscopy unit. IV sedation was administered by Anesthesia under continuous monitoring. Initially the Olympus GIF-140 video endoscope was inserted into the mouth. Esophagus intubated without any difficulty. It was gradually advanced into the stomach and duodenum and carefully examined. . The bulb of the duodenum there was a 1.5 cm ulceration identified with some narrowing of the duodenal lumen. I was able to advance the sc into the second part of the duodenum appeared normal.The scope at this time was withdrawn to the stomach, adequately insufflated with air, and upon careful examination, mucosa of the antrum, had mild gastritis. There was some retained food in the stomach that was aspirated. Mucosa of the body, cardia and the fundus appeared normal. The scope was then withdrawn into the esophagus. The GE junction was located at 43 cm from the incisors. there was a short segment of Zazueta's appearing mucosa extending 5-6 mm proximal to the GE junction which was biopsied. The esophagus appeared normal. There were no erosions or ulcerations seen and the patient tolerated the procedure well. IMPRESSION: 1. 1.5 cm due to normal duodenal ulcer at the apex of the duodenal bulb with some narrowing of the duodenal lumen. 2. Mild antral gastritis 3. Small amount of retained solid and liquid food in the stomach and. 4. Short segment Zazueta's esophagus RECOMMENDATIONS: The findings of this examination were discussed with the patient as well as his family. He was advised to continue with Protonix 40 mg twice daily. Follow with the biopsy results. Avoid NSAIDs. Recommend small frequent meals..
[2023-03-19 11:41] VITALS: RESP 18
[2023-03-19 12:03] VITALS: BP 109/77; PULSE 90
== END 2023-03-19 12:24 | disposition home or self-care (01) ==
LOC: ORWHC2ENDO 10:32
PROVIDERS: ATTEND Internal Medicine Gastroenterology
DX: K29.50 Unspecified chronic gastritis without bleeding (principal); K26.9 Duodenal ulcer, unspecified as acute or chronic, without hemorrhage or perforation; K22.70 Barrett's esophagus without dysplasia; K31.A0 Gastric intestinal metaplasia, unspecified; J45.909 Unspecified asthma, uncomplicated; F17.210 Nicotine dependence, cigarettes, uncomplicated; N40.0 Benign prostatic hyperplasia without lower urinary tract symptoms; G40.909 Epilepsy, unspecified, not intractable, without status epilepticus; K21.9 Gastro-esophageal reflux disease without esophagitis; Z79.51 Long term (current) use of inhaled steroids; Z79.899 Other long term (current) drug therapy
CPT/HCPCS: 88305; 43239; J2704; J2001

== ENCOUNTER → 2023-03-27 | Outpatient (CLI) | payer OTHER ==
[2023-03-27 21:36] LABS: HCT 34.9 % (39.6-50.0); HGB 11.5 d/dL (12.0-15.0); MCH 29.9 pg (27.0-32.0); MCV 90.6 FL (80.0-97.0); Mean Platelet Volume 11.1 FL (9.5-12.2); NRBC Per 100 WBC 0 X 10*3/uL (0.00-0.01); Platelet Count 209 X 10*3/uL (140-440); RBC 3.85 X 10*6/uL (4.40-5.60); RDW 13.2 % (11.5-14.5); WBC 7.45 X 10*3/uL (4.50-10.00)
[2023-03-27 22:07] LABS: BUN/Creat Ratio 18.38 Ratio (12.00-20.00); Blood Urea Nitrogen 14.7 mg/dL (9.0-27.0); Calcium 10.3 mg/dL (8.7-10.3); Carbon Dioxide 26.1 mmol/L (21.6-31.8); Chloride 100 mmol/L (96-109); Glucose 118 mg/dL (70-110); Potassium 3.5 mmol/L (3.5-5.5); Sodium 141 mmol/L (135-145)
== END | disposition home or self-care (01) ==
LOC: LABWHC1 14:20
PROVIDERS: ATTEND Nurse Practitioner Family
DX: R11.2 Nausea with vomiting, unspecified (principal)
CPT/HCPCS: 36415; 80048; 85027

== ENCOUNTER 2024-04-12 23:43 | Emergency (ER) | payer OTHER ==
[2024-04-12 23:55] VITALS: TEMP 97.9
--- NOTE | 2024-04-13 00:20 | ED ---
General Adult HPI - General Chief complaint: Skin/Abscess/Foreign Body Stated complaint: Back Pain/ Cyst Burst Time Seen by Provider: 04/13/24 00:00 Source: patient Mode of arrival: ambulatory Limitations: no limitations - History of Present Illness Initial comments: Dictation was produced using [employer] dictation software. please excuse any grammatical, word or spelling errors. Chief Complaint: 43-year-old male reported pilonidal cyst and perirectal abscesses presents to the ER for abscesses to the perirectal soft tissue History of Present Illness: Patient is a 43-year-old male for the last few days he has been dealing with reported abscesses to the perirectal soft tissue. Patient states that he gets these frequently. Patient concerned that perhaps he needs to have an I&D and/or packing. Patient denies any fever, chills or night sweats. Does complain of some mild pain to that area. The ROS documented in this emergency department record has been reviewed and confirmed by me. Those systems with pertinent positive or negative responses have been documented in the HPI. All other systems are other negative and/or noncontributory. - Related Data Home Medications Medication Instructions Recorded Confirmed Ferrous Sulfate [Iron (65 MG 325 mg PO DAILY 07/20/18 03/19/23 Elemental)] Finasteride [Proscar] 5 mg PO DAILY 07/20/18 03/19/23 Multivitamins, Thera [Multivitamin 1 tab PO DAILY 07/20/18 03/19/23 (formulary)] Vitamin B Complex 1 cap PO DAILY 07/20/18 03/19/23 Albuterol Inhaler [Ventolin Hfa 2 puff INHALATION RT-Q4H PRN 10/05/18 03/19/23 Inhaler] Baclofen [Lioresal] 20 mg PO TID 10/05/18 03/19/23 Pregabalin [Lyrica] 200 mg PO TID 10/05/18 03/19/23 Alfuzosin HCl [Alfuzosin HCl ER] 10 mg PO DAILY 05/05/19 03/19/23 Buprenorphine HCl/Naloxone HCl 1 tab SUBLINGUAL BID 05/05/19 03/19/23 [Zubsolv 5.7-1.4 mg Tablet Sl] Ergocalciferol [Vitamin D2] 50,000 unit PO Q7D 05/05/19 03/19/23 Ondansetron Odt [Zofran Odt] 4 mg PO Q12HR PRN 05/05/19 03/19/23 Previous Rx's Medication Instructions Recorded Omeprazole 40 mg PO DAILY #60 capsule. 07/23/18 Cephalexin [Keflex] 500 mg PO Q6HR 5 Days #20 cap 04/13/24 Sulfamethox-Tmp 800-160Mg [Bactrim 1 tab PO Q12HR 5 Days #10 tab 04/13/24 DS 800-160 mg] Allergies Allergy/AdvReac Type Severity Reaction Status Date / Time No Known Allergies Allergy Verified 04/12/24 23:55 Review of Systems ROS Statement: Those systems with pertinent positive or pertinent negative responses have been documented in the HPI. ROS Other: All systems not noted in ROS Statement are negative. Past Medical History Past Medical History: Asthma, GERD/Reflux, GI Bleed, Prostate Disorder, Seizure Disorder Additional Past Medical History / Comment(s): Anemia, upper GI bleed, bleeding gastric ulcers, duodenitis, antral gastritis, hematuria, BPH, chronic cervical and lumbar back pain which radiates into bilateral legs, one time seizure @age of 13-nothing since History of Any Multi-Drug Resistant Organisms: None Reported Past Surgical History: Back Surgery Additional Past Surgical History / Comment(s): EGDs, colonoscopy, lumbar back surgery, pain clinic procedures, dental work Past Anesthesia/Blood Transfusion Reactions: No Reported Reaction Past Psychological History: No Psychological Hx Reported Smoking Status: Current every day smoker Past Alcohol Use History: None Reported Past Drug Use History: None Reported - Past Family History Mother Family Medical History: No Reported History Additional Family Medical History / Comment(s): Mother is healthy Father Family Medical History: Cancer Additional Family Medical History / Comment(s): Lung CA General Exam - General Exam Comments Initial Comments: PHYSICAL EXAM: General Impression: Alert and oriented x3, not in acute distress HEENT: Normocephalic atraumatic, extra-ocular movements intact, pupils equal and reactive to light bilaterally, mucous membranes moist. Cardiovascular: Heart regular rate and rhythm Chest: Able to complete full sentences, no retractions, no tachypnea Abdomen: abdomen soft, non-tender, non-distended, no organomegaly Musculoskeletal: Pulses present and equal in all extremities, no peripheral edema Motor: no focal deficits noted Neurological: CN II-XII grossly intact, no focal motor or sensory deficits noted Skin: Multiple draining abscesses with open cavity to the perirectal space, no fluctuant mass, no obvious fluctuance Psych: Normal affect and mood Limitations: no limitations Course Vital Signs 04/12/24 23:51 Temperature 97.9 F Pulse Rate 79 Respiratory 18 Rate Blood Pressure 129/87 O2 Sat by Pulse 100 Oximetry Medical Decision Making - Medical Decision Making Was pt. sent in by a medical professional or institution (, PA, BAR ATTENDANT, urgent care, hospital, or custodial...) When possible be specific @ -No Did you speak to anyone other than the patient for history (EMS, parent, family, police, friend...)? What history was obtained from this source @ -No Did you review nursing and triage notes (agree or disagree)? Why? @ -I reviewed and agree with nursing and triage notes Were old charts reviewed (outside hosp., previous admission, EMS record, old EKG, old radiological studies, urgent care reports/EKG's, custodial records)? Report findings @ -No old charts were reviewed Differential Diagnosis (chest pain, altered mental status, abdominal pain women, abdominal pain men, vaginal bleeding, musculoskeletal, weakness, fever, dyspnea, syncope, headache, dizziness, GI bleed, back pain, seizure, CVA, palpatations, mental health)? @ -Abscess, Ginger's gangrene, cellulitis EKG interpreted by me (3pts min.). @ -None done X-rays interpreted by me (1pt min.). @ -None done CT interpreted by me (1pt min.). @ -None done U/S interpreted by me (1pt. min.). @ -None done What testing was considered but not performed or refused? (CT, X-rays, U/S, labs)? Why? @ -None What meds were considered but not given or refused? Why? @ -None Was smoking cessation discussed for >3mins.? @ -No Were there social determinants of health that impacted care today? How? (Homelessness, low income, unemployed, alcoholism, drug addiction, transportation, low edu. Level, literacy, decrease access to med. care, assisted, rehab)? @ -No Was there de-escalation of care discussed even if they declined (Discuss DNR or withdrawal of care, Hospice)? DNR status @ -No What co-morbidities impacted this encounter? (DM, HTN, Smoking, COPD, CAD, Cancer, CVA, ARF, Chemo, Hep., AIDS, mental health diagnosis, sleep apnea, morbid obesity)? @ -None Was patient admitted / discharged? Hospital course, mention meds given and route, prescriptions, significant lab abnormalities, going to OR and other pertinent info. @ -43-year-old male with multiple draining abscesses to the perirectal space. Signs stable. Wounds all appear to be draining. No packing indicated. No fluctuance noted. Patient given prescription for antibiotics discharge. Did you discuss the management of the patient with other professionals (professionals i.e. , PA, BAR ATTENDANT, lab, RT, psych nurse, social media specialist, lithographic artist, teacher, parachute officer, housing case manager)? Give summary @ -No Was critical care preformed (if so, how long)? @ -No Undiagnosed new problem with uncertain prognosis? @ -No Drug Therapy requiring intensive monitoring for toxicity (Heparin, Nitro, Insul in, Cardizem)? @ -No Were any procedures done? @ -No Diagnosis/symptom? Acute, or Chronic, or Acute on Chronic? Uncomplicated (without systemic symptoms) or Complicated (systemic symptoms)? @ -Perirectal abscess Side effects of treatment? @ -No Exacerbation, Progression, or Severe Exacerbation? @ -No Poses a threat to life or bodily function? How? (Chest pain, [place], [place], pneumonia, PE, COPD, DKA, ARF, appy, cholecystitis, CVA, Diverticulitis, Homicidal, Suicidal, threat to staff... and all critical care pts) @ -No Disposition Clinical Impression: Abscess Disposition: HOME SELF-CARE Condition: Good Instructions (If sedation given, give patient instructions): Abscess (ED) Prescriptions: Sulfamethox-Tmp 800-160Mg [Bactrim DS 800-160 mg] 1 tab PO Q12HR 5 Days #10 tab Cephalexin [Keflex] 500 mg PO Q6HR 5 Days #20 cap Is patient prescribed a controlled substance at d/c from ED?: No Referrals: None,Stated [Primary Care Provider] - 1-2 days Time of Disposition: 00:20
[2024-04-13] MEDS: CEPHALEXIN 500 MG CAP PO STA (00:26)
[2024-04-13] MEDS: SULFAMETHOX-TMP 800-160MG 1 EACH TAB PO STA (00:26)
[2024-04-13 00:31] VITALS: BP 141/69; PULSE 61; RESP 16
== END 2024-04-13 00:30 | disposition home or self-care (01) ==
LOC: EC 23:43
DX: K61.1 Rectal abscess (principal); F17.200 Nicotine dependence, unspecified, uncomplicated
CPT/HCPCS: 99283

== ENCOUNTER → 2024-09-24 | Outpatient (CLI) | payer OTHER ==
[2024-09-25 02:24] LABS: HCT 42.2 % (39.6-50.0); HGB 13.8 g/dL (13.0-17.0); MCH 31.4 pg (27.0-32.0); MCHC 32.7 g/dL (32.0-37.0); MCV 95.9 FL (80.0-97.0); Mean Platelet Volume 12.2 FL (9.5-12.2); NRBC Per 100 WBC 0 X 10*3/uL (0.00-0.01); Platelet Count 211 X 10*3/uL (140-440); RDW 13.2 % (11.5-14.5); WBC 8.55 X 10*3/uL (4.50-10.00)
== END | disposition home or self-care (01) ==
LOC: LABWHC1 16:20
PROVIDERS: ATTEND Internal Medicine Gastroenterology
DX: D64.9 Anemia, unspecified (principal)
CPT/HCPCS: 36415; 85027

== ENCOUNTER → 2024-10-26 | Outpatient (CLI) | payer OTHER ==
[2024-10-26 17:14] LABS: Basophils # (A) 0.1 k/uL (0-0.2); Basophils % (A) 1 %; Eosinophils # (A) 0.3 k/uL (0-0.7); Eosinophils % (A) 4 %; HCT 40.5 % (39.0-53.0); HGB 13.6 gm/dL (13.0-17.5); Lymphocytes # (A) 1.7 k/uL (1.0-4.8); Lymphocytes % (A) 24 %; MCH 31.9 pg (25.0-35.0); MCHC 33.7 g/dL (31.0-37.0); MCV 94.8 fL (80.0-100.0); Mean Platelet Volume 9.1; Monocytes # (A) 0.4 k/uL (0-1.0); Monocytes % (A) 5 %; Neutrophils # (A) 4.6 k/uL (1.3-7.7); Neutrophils % (A) 64 %; Platelet Count 173 k/uL (150-450); RBC 4.27 m/uL (4.30-5.90); RDW 13.1 % (11.5-15.5); WBC 7.2 k/uL (3.8-10.6)
[2024-10-27 03:55] LABS: Protein, Total 6.7 g/dL (6.2-8.2)
[2024-10-27 04:26] LABS: ALT 18 U/L (10-49); AST 19 U/L (14-35); Albumin 4.3 g/dL (3.8-4.9); Albumin/Globulin Ratio 2.05 Ratio (1.60-3.17); Alkaline Phosphatase 76 U/L (41-126); BUN/Creat Ratio 20.25 Ratio (12.00-20.00); Blood Urea Nitrogen 16.2 mg/dL (9.0-27.0); Calcium 9.7 mg/dL (8.7-10.3); Carbon Dioxide 27.5 mmol/L (21.6-31.8); Chloride 102 mmol/L (96-109); Globulin 2.1 g/dL (1.6-3.3); Glucose 104 mg/dL (70-110); PSA Annual Screen 0.963 ng/mL (0.000-4.000); Sodium 140 mmol/L (135-145); T4, Free (Free Thyroxine) 1.17 ng/dL (0.80-1.80); Total Bilirubin <0.2 mg/dL (0.3-1.2); Total Protein 6.4 g/dL (6.2-8.2)
[2024-10-27 04:42] LABS: Hepatitis C IgG Antibody Nonreactive (Nonreactive)
[2024-10-27 05:28] LABS: HIV 2 AB Non-Reactive (Non-Reactive); HIV AB P24 Non-Reactive (Non-Reactive); HIV P24 AG Non-Reactive (Non-Reactive)
== END | disposition home or self-care (01) ==
LOC: LABWHC1 16:26
PROVIDERS: ATTEND Internal Medicine
DX: Z00.00 Encounter for general adult medical examination without abnormal findings (principal); R63.4 Abnormal weight loss; Z11.59 Encounter for screening for other viral diseases; E55.9 Vitamin D deficiency, unspecified
CPT/HCPCS: 86803; 84439; 80061; 80053; 84443; 85025; 84165; 82306; 86038; 87390; 86334; 36415; G0103; 83721

== ENCOUNTER → 2024-10-26 | Outpatient (CLI) | payer OTHER ==
--- NOTE | 2024-10-26 18:34 | XR ---
EXAMINATION TYPE: XR chest 2V DATE OF EXAM: 10/26/2024 6:16 PM COMPARISON: None. CLINICAL INDICATION: Male, 44 years old with history of R63.4, family history of cancer, screening TECHNIQUE: XR chest 2V view(s) obtained. FINDINGS: The heart size is normal. The pulmonary vasculature is normal. The lungs are clear. IMPRESSION: 1. No acute pulmonary process. 2. Consider low dose screening CT chest [facility], , 10/26/2024 6:32 PM
== END | disposition home or self-care (01) ==
LOC: RADXRMAIN 17:11
PROVIDERS: ATTEND Internal Medicine
DX: Z12.9 Encounter for screening for malignant neoplasm, site unspecified (principal); R63.4 Abnormal weight loss; Z80.9 Family history of malignant neoplasm, unspecified
CPT/HCPCS: 71046

== ENCOUNTER → 2024-11-05 | Outpatient (CLI) | payer OTHER ==
--- NOTE | 2024-11-05 08:42 | US ---
EXAMINATION TYPE: US abdomen complete DATE OF EXAM: 11/05/2024 COMPARISON: CT urogram 2012 CLINICAL INDICATION: Male, 44 years old with history of K21.9 GASTRO ESOPHAGEAL REFLUX; GERD TECHNIQUE: Grayscale and color Doppler imaging of the abdomen was performed. FINDINGS: EXAM MEASUREMENTS: Liver Length: 17.3 cm Gallbladder Wall: Posterior wall measures 0.5 cm in sagittal. Measures 0.30 cm anterior wall in trans verse. CBD: 0.57 cm, color Doppler imaging was utilized to isolate the common bile duct for measurement. Spleen: 9.9 cm Right Kidney: 10.5 x 5.0 x 3.9 cm Left Kidney: 10.0 x 5.5 x 5.5 cm ENVELOPE FOLD OPERATOR NOTES: Exam is limited due to gas. Pancreas: Not well seen. Liver: *Measures upper limits. No dilated ducts, masses or cysts. Gallbladder: *Wall appears thickened posteriorly: 0.5 cm. Measures 0.3 cm in transverse anteriorly. Evidence for sonographic Vanegas's sign: No CBD: Appears wnl Spleen: Appears wnl Right Kidney: *Hyperechoic focus seen lower pole: 0.6 x 0.6 x 0.4 cm. Left Kidney: Slightly limited due to gas. No hydronephrosis, calculi or masses seen Upper IVC: wnl Abd Aorta: Appears wnl Abnormal wall thickening of the gallbladder. Possible 6 mm nonobstructing right renal calculus. IMPRESSION: Slightly suboptimal study without acute finding clearly identified. Some abnormal wall thickening to the gallbladder noted. Advise surgical referral as neoplasm sometime can have this appearance. [facility], , 11/05/2024 8:40 AM
== END | disposition home or self-care (01) ==
LOC: RADUSWWP 07:37
PROVIDERS: ATTEND Internal Medicine
DX: K82.8 Other specified diseases of gallbladder (principal); K21.9 Gastro-esophageal reflux disease without esophagitis
CPT/HCPCS: 76700

== ENCOUNTER 2024-12-22 07:00 | Day surgery (SDC) | payer OTHER ==
[2024-12-22] MEDS ORDERED: LACTATED RINGERS 1,000 ML IV SCH ×2 (07:16)
[2024-12-22] MEDS ORDERED: LIDOCAINE 1% (10MG/ML) FOR IV START INTRADERMA PRN (07:16)
[2024-12-22 07:18] VITALS: RESP 16; TEMP 98.5
[2024-12-22] MEDS: IV FLUID CONTINUATION 1,000 ML IV ONE ×2 (07:38→07:50)
[2024-12-22] MEDS ORDERED: LIDOCAINE 1% INJ 10MG/ML (20 ML MDV) ONE (07:51)
[2024-12-22] MEDS ORDERED: PROPOFOL 10 MG/ML 20 ML VIAL IV ONE (07:51)
--- NOTE | 2024-12-22 08:21 | P.PCN ---
Date of Procedure: 12/22/24 Procedure(s) Performed: Brief history: Patient is a pleasant 44-year-old white female scheduled for an elective upper endoscopy as well as colonoscopy as a part of evaluation of abdominal pain, nausea vomiting, history of GERD and Zazueta's esophagus and progressive weight loss of 50 pounds in the last 1 year duration Procedure performed: Esophagogastroduodenoscopy with biopsy Colonoscopy Preoperative diagnosis: Abdominal pain, nausea vomiting and progressive weight loss of 50 pounds Change in bowel habits Anesthesia: MAC Procedure: After informed consent was obtained from the patient was brought into the endoscopy unit and IV sedation was administered by anesthesia under continuous monitoring. Initially upper endoscopy was done. The Olympus GF 160 video endoscope was inserted inserted into the mouth and esophagus intubated without any difficulty and was gradually advanced into the stomach and duodenum and carefully examined. The bulb of the duodenum appeared normal. Along the duodenal sweep there was a 1 cm duodenal ulcer identified along the duodenal stricture and the endoscope could not be advanced through the stricture. The scope was then withdrawn into the stomach adequately insufflated with air and upon careful examination the antrum and mild gastritis and biopsies were done from this area. Mucosa body, cardia and fundus appeared normal. The scope was then withdrawn into the esophagus. The GE junction was located at 40 cm to the incisors. It appeared irregular with short segment of Zazueta's esophagus extending 5 mm proximal to GE junction which was biopsied. Rest of the esophagus appeared normal. Patient tolerated the procedure well. At this time the patient continued to remain sedation. Initial digital rectal examination was normal. Olympus CF 160 video colonoscope was then inserted into the rectum and gradually advanced to the cecum without any difficulty. Careful examination was performed as the scope was gradually being withdrawn. The prep was excellent. The cecum, ascending colon, transverse colon, descending colon, sigmoid colon and rectum appeared normal. Retroflexion was performed in the rectum and grade 2 internal hemorrhoids were noted. Patient tolerated the procedure well. Impression: 1. Upper endoscopy revealed 1 cm duodenal ulcer along the duodenal sweep with a duodenal stricture and the scope could not be advanced beyond the stricture. Mild antral gastritis and short segment Zazueta's esophagus status post biopsy 2. Colonoscopy revealed scattered sigmoid diverticulosis and grade 2 internal hemorrhoids and mild rectal prolapse Recommendations: Findings of this examination were discussed with the patient as well as his family. He was advised to follow-up with the biopsy results. He will be seen in the office in 1 to 2 weeks. Increase omeprazole to 40 mg twice daily. If he continues to remain symptomatic we will consider EGD with duodenal stricture dilation in 3 to 4 weeks.
[2024-12-22 08:41] VITALS: BP 121/80; PULSE 57
== END 2024-12-22 08:58 | disposition home or self-care (01) ==
LOC: ORWHC2ENDO 07:00
PROVIDERS: ATTEND Internal Medicine Gastroenterology
DX: K29.80 Duodenitis without bleeding (principal); K22.70 Barrett's esophagus without dysplasia; K64.1 Second degree hemorrhoids; K62.3 Rectal prolapse; K57.30 Diverticulosis of large intestine without perforation or abscess without bleeding; K31.5 Obstruction of duodenum; K26.9 Duodenal ulcer, unspecified as acute or chronic, without hemorrhage or perforation; J45.909 Unspecified asthma, uncomplicated; N40.0 Benign prostatic hyperplasia without lower urinary tract symptoms; G40.909 Epilepsy, unspecified, not intractable, without status epilepticus; K21.9 Gastro-esophageal reflux disease without esophagitis; F17.200 Nicotine dependence, unspecified, uncomplicated; Z98.890 Other specified postprocedural states; Z79.899 Other long term (current) drug therapy
CPT/HCPCS: 88305; 45378; 43239; J2003; J2704

== ENCOUNTER → 2025-02-28 | Outpatient (CLI) | payer OTHER | END | disposition home or self-care (01) | LOC: RADNMMAIN 11:17 | PROVIDERS: ATTEND Internal Medicine | DX: Z53.9 Procedure and treatment not carried out, unspecified reason (principal) ==

== ENCOUNTER → 2025-04-27 | Outpatient (CLI) | payer OTHER ==
--- NOTE | 2025-04-27 17:33 | XR ---
EXAMINATION TYPE: XR chest 2V DATE OF EXAM: 04/27/2025 5:25 PM COMPARISON: Chest radiographs from 10/26/2024. CLINICAL INDICATION: Male, 44 years old with history of Z01.818 ENCOUNTER FOR OTHER PREPROCEDURAL EXA MINAT; [facility] TECHNIQUE: XR chest 2V Frontal and lateral views of the chest. FINDINGS: Lungs/Pleura: There is no evidence of pleural effusion, focal consolidation, or pneumothorax. Pulmonary vascularity: Unremarkable. Heart/mediastinum: Cardiomediastinal silhouette is unremarkable. Musculoskeletal: No acute osseous pathology. IMPRESSION: No acute cardiopulmonary disease/process. [facility], , 04/27/2025 5:31 PM
== END | disposition home or self-care (01) ==
LOC: RADXRMAIN 17:12
PROVIDERS: ATTEND Internal Medicine
DX: Z01.818 Encounter for other preprocedural examination (principal)
CPT/HCPCS: 71046

== ENCOUNTER → 2025-05-02 | Outpatient (CLI) | payer OTHER ==
[2025-05-03 02:16] LABS: Basophils # (A) 0.13 X 10*3/uL (0.00-0.10); Basophils % (A) 1.6 %; Eosinophils # (A) 0.11 X 10*3/uL (0.04-0.35); Eosinophils % (A) 1.3 %; HCT 34.0 % (39.6-50.0); HGB 11.0 g/dL (13.0-17.0); Immature Grans, Automated 0.10 %; Lymphocytes # (A) 1.96 X 10*3/uL (0.90-5.00); Lymphocytes % (A) 23.9 %; MCH 29.0 pg (27.0-32.0); MCHC 32.4 g/dL (32.0-37.0); MCV 89.7 FL (80.0-97.0); Monocytes # (A) 0.42 X 10*3/uL (0.20-1.00); Monocytes % (A) 5.1 %; NRBC Per 100 WBC 0 X 10*3/uL (0.00-0.01); Neutrophils # (A) 5.58 X 10*3/uL (1.80-7.70); Neutrophils % (A) 68.0 %; Platelet Count 229 X 10*3/uL (140-440); RBC 3.79 X 10*6/uL (4.40-5.60); RDW 13.4 % (11.5-14.5); WBC 8.21 X 10*3/uL (4.50-10.00)
[2025-05-03 02:49] LABS: INR 0.98 sec (0.93-1.11); Prothrombin Time 11.2 sec (9.9-11.9)
[2025-05-03 03:03] LABS: Cholesterol 136.00 mg/dL (0.00-200.00); HDL Cholesterol 30.40 mg/dL (40.00-60.00)
[2025-05-03 03:04] LABS: ALT 18 U/L (10-49); AST 23 U/L (14-35); Albumin 4.2 g/dL (3.8-4.9); Albumin/Globulin Ratio 3.00 Ratio (1.60-3.17); Alkaline Phosphatase 46 U/L (41-126); Anion Gap 11.70 mmol/L (4.00-12.00); BUN/Creat Ratio 19.89 Ratio (12.00-20.00); Blood Urea Nitrogen 17.9 mg/dL (9.0-27.0); Calcium 8.7 mg/dL (8.7-10.3); Carbon Dioxide 22.3 mmol/L (21.6-31.8); Chloride 102 mmol/L (96-109); Globulin 1.4 g/dL (1.6-3.3); Glucose 74 mg/dL (70-110); LDL Cholesterol,Calculated 78.2 mg/dL (0.0-131.0); Magnesium 1.2 mg/dL (1.5-2.4); Potassium 3.9 mmol/L (3.5-5.5); Sodium 136 mmol/L (135-145); Total Protein 5.6 g/dL (6.2-8.2); Triglycerides 137.00 mg/dL (0.00-149.00); VLDL Calculation 27.40 mg/dL (5.00-40.00)
== END | disposition home or self-care (01) ==
LOC: LABPAT 16:17
PROVIDERS: ATTEND Internal Medicine
DX: Z01.812 Encounter for preprocedural laboratory examination (principal); E55.9 Vitamin D deficiency, unspecified; E78.1 Pure hyperglyceridemia
CPT/HCPCS: 80053; 80061; 82306; 83735; 84443; 85025; 85610

== ENCOUNTER → 2025-05-12 | Outpatient (CLI) | payer OTHER ==
[2025-05-12 19:07] LABS: HCT 36.2 % (39.6-50.0); HGB 11.8 g/dL (13.0-17.0); MCH 29.9 pg (27.0-32.0); MCHC 32.6 g/dL (32.0-37.0); MCV 91.6 FL (80.0-97.0); Platelet Count 202 X 10*3/uL (140-440); RBC 3.95 X 10*6/uL (4.40-5.60); RDW 14.0 % (11.5-14.5); WBC 8.76 X 10*3/uL (4.50-10.00)
[2025-05-12 19:08] LABS: NRBC Per 100 WBC 0 X 10*3/uL (0.00-0.01)
[2025-05-13 02:27] LABS: Anion Gap 12.70 mmol/L (4.00-12.00); BUN/Creat Ratio 19.00 Ratio (12.00-20.00); Blood Urea Nitrogen 20.9 mg/dL (9.0-27.0); Calcium 9.5 mg/dL (8.7-10.3); Carbon Dioxide 21.3 mmol/L (21.6-31.8); Chloride 104 mmol/L (96-109); Ferritin 31.4 ng/mL (22.0-322.0); Glucose 96 mg/dL (70-110); Iron 139 UG/DL (65-175); Magnesium 1.6 mg/dL (1.5-2.4); Potassium 4.6 mmol/L (3.5-5.5); Sodium 138 mmol/L (135-145); Total Iron Binding Capacity 602 UG/DL (228-460); Vitamin B12 562.0 pg/mL (200.0-944.0)
== END | disposition home or self-care (01) ==
LOC: LABWHC1 16:07
PROVIDERS: ATTEND Internal Medicine
DX: E83.42 Hypomagnesemia (principal); D64.9 Anemia, unspecified
CPT/HCPCS: 36415; 80048; 82607; 82728; 82746; 83540; 83550; 83735; 85027